=== PATIENT | female | born 1950 | race Caucasian/White ===

== ENCOUNTER 2024-01-29 08:47 | Outpatient (CLI) | payer MEDICARE, SELFPAY ==
--- NOTE | 2024-01-29 | ECHO_ITS ---
Patient Info Name: Lorna Echeverria Age: 73 years : 1950 Gender: Female Ht: 65 in Wt: 180 lbs BSA: 1.96 m2 HR: 69 bpm BP: 156 / 91 mmHg Technical Quality: Fair Exam Date: 01/29/2024 9:35 AM Exam Location: Echo Lab Patient Status: Outpatient Admit Date: 01/29/2024 Staff Ordering Physician: JustinKingsley MD Career Technology Teacher: Kannan Villarreal RDCS Attending Provider: LeeroyKingsley MD Exam Type: CA echo doppler color flow Study Info Indications R60.0 - Localized edema Complete two-dimensional, color flow and Doppler transthoracic echocardiogram is performed. Summary 1. Complete two-dimensional, color flow and Doppler transthoracic echocardiogram is performed. 2. Left ventricular chamber dimension is normal. 3. Left ventricular systolic function is normal, estimated at 60-65%. 4. The left ventricular diastolic function is grade I diastolic dysfunction. 5. E/e' 12 is mildly elevated. 6. There is trace aortic valve regurgitation. 7. No pulmonary hypertension, estimated pulmonary arterial systolic pressure is 11 mmHg. Left Ventricle E/e' 12 is mildly elevated. Left ventricular chamber dimension is normal. Left ventricular systolic function is normal, estimated at 60-65%. The left ventricular diastolic function is grade I diastolic dysfunction. Right Ventricle Right ventricular chamber dimension is normal. Right ventricular systolic function is normal. Left Atria Left atrial chamber dimension is normal. Right Atria Right atrial chamber dimension is normal. Aortic Valve The aortic valve is trileaflet. There is no aortic valve stenosis. There is trace aortic valve regurgitation. Pulmonic Valve There is no pulmonic regurgitation. Mitral Valve There is no mitral valve stenosis. There is no mitral valve regurgitation. Tricuspid Valve There is no tricuspid valve regurgitation. No pulmonary hypertension, estimated pulmonary arterial systolic pressure is 11 mmHg. Pericardium/Pleural There is no pericardial effusion. Inferior Vena Cava Normal inferior vena cava with >50% collapse upon inspiration consistent with normal right atrial pressure, 5 mmHg. Aorta The aortic root size at the sinus of Valsalva is normal. Left Ventricular Outflow Tract Name Value Normal LVOT 2D LVOT Diameter 2.0 cm LVOT Doppler LVOT Peak Gradient 6 mmHg LVOT Mean Gradient 3 mmHg LVOT VTI 28 cm LVOT VTI/AV VTI Ratio 1.0 LVOT Stroke Volume 88 ml LVOT CO 5.8 l/min LVOT CI 3.0 l/min/m2 Pulmonic Valve Name Value Normal PV Doppler PV Peak Gradient 6 mmHg Mitral Valve Name Value Normal
== END 2024-01-29 08:48 | disposition home or self-care (01) ==
LOC: ANHCARD 08:50
PROVIDERS: PCP Internal Medicine; Visit Provider Internal Medicine
DX: R60.0 Localized edema (principal); I51.89 Other ill-defined heart diseases
CPT/HCPCS: 93306

== ENCOUNTER 2024-10-28 07:54 | Outpatient (CLI) | payer MEDICARE, SELFPAY ==
--- NOTE | ~2024-10-28 | US_ITS ---
EXAMINATION: US renal BI DATE: 10/28/2024 08:42 INDICATION: Elevated serum creatinine TECHNIQUE: Multiple ultrasound grayscale images of the kidneys were obtained. COMPARISON: None. FINDINGS: The right kidney measures 10.9 x 4.7 x 4.5 cm. The left kidney measures 9.3 x 3.4 x 3.9 cm. The kidne ys demonstrate normal echogenicity. There are a couple 8-9 mm anechoic cysts at the left kidney. Ther e is no hydronephrosis in either kidney. No stones identified. The bladder is normal with bilateral ureteral jets visualized on color Doppler.. IMPRESSION: 1. A couple subcentimeter left renal cysts. Otherwise normal kidneys without hydronephrosis. Reviewed, dictated and finalized at location A. IMPRESSION: 1. A couple subcentimeter left renal cysts. Otherwise normal kidneys without h ydronephrosis.
--- OUTSIDE RECORDS SUMMARY | 2024-10-28 08:01 | XMS_ITS | Clinical Summary ---
Author Organization [facility] Address [address] [place] [address] Care Team Providers Care Dependency Program Director Name Role Phone Kingsley Anderson MD Primary Care Provider [phone] Allergies Active Allergy Reactions Criticality Noted Date Comments Ciprofloxacin Nausea and Vomiting 06/15/2019 Penicillins Other (See Comments) 06/15/2019 Decreased energy Medications lisinopril (PRINIVIL) 5 mg tablet Take 5 mg by mouth 2 times daily. Active nebivolol (BYSTOLIC) 5 mg Tablet Take 5 mg by mouth. Active rosuvastatin (CRESTOR) 5 mg tablet Take 5 mg by mouth daily at bedtime. Active albuterol HFA 90 mcg inhaler Take 2 Puffs by inhalation every 6 hours as needed for Wheezing or Shortness of Breath. 8.5 Gram 9 Active Social History Tobacco Use Types Packs/Day Years Used Date Smoking Tobacco: Never Smokeless Tobacco: Never Alcohol Use Standard Drinks/Week Comments Not Currently 0 (1 standard drink = 0.6 oz pur e alcohol) Comments No Sex and Gender Information Value Date Recorded Sex Assigned at Not on file Legal Sex Female 9:54 PM CDT Gender Identity Not on file Sexual Orientation Not on file Last Filed Vital Signs Vital Sign Reading Time Taken Comments Blood Pressure 139/86 06/15/2019 5:57 PM C[employer]OMER SERVICE REPRESENTATIVE TEACHER Pulse 77 06/15/2019 5:57 PM C[employer]OMER SERVICE REPRESENTATIVE TEACHER Temperature 36.7 C (98.1 F) 06/15/2019 5:57 PM C[employer]OMER SERVICE REPRESENTATIVE TEACHER Respiratory Rate 18 06/15/2019 5:57 PM C[employer]OMER SERVICE REPRESENTATIVE TEACHER Oxygen Saturation 94% 06/15/2019 5:57 PM C[employer]OMER SERVICE REPRESENTATIVE TEACHER Inhaled Oxygen Concentration - - Weight 85.3 kg (188 lb) 06/15/2019 5:57 PM C[employer]OMER SERVICE REPRESENTATIVE TEACHER Height 157.5 cm (5' 2 ) 06/15/2019 5:57 PM C[employer]OMER SERVICE REPRESENTATIVE TEACHER Body Mass Index 34.39 06/15/2019 5:57 PM C[employer]OMER SERVICE REPRESENTATIVE TEACHER Plan of Treatment Health Maintenance Due Date Last Done Comments DTAP/TDAP/TD VACCINES (1 - Tdap) 1968 BREAST CANCER SCREENING 1989 COLORECTAL SCREENING 1994 Colorectal Cancer Screening 1994 FIT-DNA Q 3 years 1994 FIT/FOBT Q 1 year 1994 Flex Sig/CT Colonography Q 5 years 1994 PNEUMOCOCCAL VACCINE 50+ YEA RS (1 of 1 - PCV) 1999 ZOSTER VACCINE (1 of 2) 1999 OSTEOPOROSIS SCREENING 2014 INFLUENZA VACCINE (#1) 2024 04/16/2019, 2017 RSV VACCINE (60+ or ) (1 - 1-dose 75+ series) 2024 Insurance MEDICARE PART A AND B [employer] SUPP Care Teams Dependency Program Director Relationship Specialty Start Date End Date Kingsley Anderson MD [address] [place] [phone] PCP - General Internal Medicine 06/15/19
--- OUTSIDE RECORDS SUMMARY | 2024-10-28 08:02 | XMS_ITS | Data Portability ---
[facility] Address [address] [place] [address] FRANKY Otero [address] Care Team Providers Care Field Sales Associate Name Role Phone SOPHIE ANDERSON Primary Care Provider Unavailabl e Assessment Encounter Date Assessment Date Assessment LastModified by Organization Details LastModified Time 12/31/2023 12/31/2023 hypertension controlled obesity healthy care instructions. Edema echo blood work including a BNP she will call us early next week with blood pressure readings today's blood pressure is good but she has had some hypertensive readings at home she says [email or web address] Not available 02/09/2024 22:14:29 03/11/2024 03/11/2024 Increase the Coreg to 12.5 b.i.d. dyslipidemia rosuvastatin GERD pantoprazole and conservative measures rhinitis loratadine we will also continue her lisinopril and her furosemide. Using her famotidine as well see me back in 3 months [email or web address] Not available 03/12/2024 13:12:51 06/08/2024 06/08/2024 Says that she is getting her mammograms at [facility]. Blood pressure is controlled CBC CMP lipid colonoscopy 2024 follow up 4 months [email or web address] Not available 06/11/2024 13:44:55 10/25/2024 10/25/2024 No orthostatic symptoms treat empirically with doxycycline for a week and she will call if not improved [email or web address] Not available 10/25/2024 21:59:33 Plan of Treatment Reminders Order Date Submit Date Provider Last Modified By Organization Details Last Modified Time Details Appointments ANY 15 2024 09:30A M Sophie Anderson MD Not available Not available Not available Lab lipid panel, serum 2023 024 ROBBIE [facility], [address], [place], [address], 06/09/2024 07:14:23 CMP, serum or plasma 2023 024 OSGOOD [facility], [address], [place], [address], 06/09/2024 07:14:24 CBC w/ auto diff 2023 024 OSGOOD [facility], [address], [place], [address], 06/09/2024 07:14:25 CBC w/ auto diff 2023 024 [facility], [address], [place], [address], 01/02/2024 07:15:29 CMP, serum or plasma 2023 024 [facility], [address], [place], [address], 01/02/2024 07:15:29 BNP (B-type natriuret ic peptide), serum or plasma [address], [address], [place], [address], 01/03/2024 11:24:36 Referral None recorded. Procedures None recorded. Surgeries None recorded. Imaging US, echocardi ogram 2023 024 [facility] [address], [place], [address], 01/29/2024 11:39:25 Medication Orders doxycycli ne hyclate 100 mg tablet 2024 025 [id number], [address], [place], [place], [id number], 10/25/2024 16:31:33 Coreg 12.5 mg tablet 2023 024 [email or web address] [id number], [address], [place], [place], [id number], 03/11/2024 12:25:22 Patient TargetsNo targets recorded. Patient Instructions Encounter Date Encounter Id Patient Instructions Last Modified By Organization Details Last Modified Time 11/10/2023 [id number] Medicare Well[employer] [facility] Preventive Checklist Not available 11/10/2023 22:29:30 eating healthy foods: care instructions [email or web address] Not available 11/10/2023 22:29:30 12/31/2023 [id number] A healthy lifestyle: care instructions [email or web address] Not available 12/31/2023 21:11:44 06/08/2024 [id number] A healthy lifestyle: care instructions Not available 06/08/2024 12:16:08 10/25/2024 [id number] A healthy lifestyle: care instructions Not available 10/25/2024 16:31:33 Reason for Referral None Reported. Results Created Date Observation Date Name Description Value Unit Range Abnormal Flag Note LastModifiedBy Organization Detail LastModifiedTime 01/01/2001/02/2024 COMP. METAB OLIC PANEL (14) glucose 121 mg/dL 70-99 above high normal Not Available [facility] ([facility]) [address] [place], [address], 01/02/2024 07:15:29 01/01/20 24 01/02/2024 COMP. METAB OLIC PANEL (14) BUN 9 mg/dL 8-27 Not Available [facility] ([facility]) [address] [place], [address], 01/02/2024 07:15:29 01/01/20 24 01/02/2024 COMP. METAB OLIC PANEL (14) creatinine 0.88 mg/dL 0.57-1 .00 Not Available [facility] ([facility]) [address] [place], [address], 01/02/2024 07:15:29 01/01/20 24 01/02/2024 COMP. METAB OLIC PANEL (14) eGFR 69 mL/mi n/1.7 3 >59 Not Available [facility] ([facility]) [address] [facility], [place], [address], 01/02/2024 07:15:29 01/01/20 24 01/02/2024 COMP. METAB OLIC PANEL (14) BUN/creatini ne ratio 10 12-28 below low normal Not Available [facility] ([facility]) [address] [facility], [place], [address], 01/02/2024 07:15:29 01/01/20 24 01/02/2024 COMP. METAB OLIC PANEL (14) sodium 141 mmol/ L 134-14 4 Not Available [facility] ([facility]) [address] [facility], [place], [address], 01/02/2024 07:15:29 01/01/20 24 01/02/2024 COMP. METAB OLIC PANEL (14) potassium 3.9 mmol/ L 3.5-5. 2 Not Available [facility] ([facility]) [address] [facility], [place], [address], 01/02/2024 07:15:29 01/01/20 24 01/02/2024 COMP. METAB OLIC PANEL (14) chloride 105 mmol/ L 96-106 Not Available [facility] ([facility]) [address] [facility], [place], [address], 01/02/2024 07:15:29 01/01/20 24 01/02/2024 COMP. METAB OLIC PANEL (14) carbon dioxide, total 23 mmol/ L 20-29 Not Available [facility] ([facility]) [address] [facility], [place], [address], 01/02/2024 07:15:29 01/01/20 24 01/02/2024 COMP. METAB OLIC PANEL (14) calcium 9.1 mg/dL 8.7-10 .3 Not Available [facility] ([facility]) [address] [place], [address], 01/02/2024 07:15:29 01/01/20 24 01/02/2024 COMP. METAB OLIC PANEL (14) protein, total 6.2 g/dL 6.0-8. 5 Not Available [facility] ([facility]) [address] [place], [address], 01/02/2024 07:15:29 01/01/20 24 01/02/2024 COMP. METAB OLIC PANEL (14) albumin 4.2 g/dL 3.8-4. 8 Not Available [facility] ([facility]) [address] [place], [address], 01/02/2024 07:15:29 01/01/20 24 01/02/2024 COMP. METAB OLIC PANEL (14) globulin, total 2.0 g/dL 1.5-4. 5 Not Available [facility] ([facility]) [address] [place], [address], 01/02/2024 07:15:29 01/01/20 24 01/02/2024 COMP. METAB OLIC PANEL (14) bilirubin, total 0.3 mg/dL 0.0-1. 2 Not Available [facility] ([facility]) [address] [place], [address], 01/02/2024 07:15:29 01/01/20 24 01/02/2024 COMP. METAB OLIC PANEL (14) alkaline phosphatase 68 IU/L 44-121 Not Available [facility] ([facility]) [address] [place], [address], 01/02/2024 07:15:29 01/01/20 24 01/02/2024 COMP. METAB OLIC PANEL (14) AST (SGOT) 24 IU/L 0-40 Not Available [facility] ([facility]) [address] [facility], [place], [address], 01/02/2024 07:15:29 01/01/20 24 01/02/2024 COMP. METAB OLIC PANEL (14) ALT (SGPT) 27 IU/L 0-32 Not Available [facility] ([facility]) [address] [facility], [place], [address], 01/02/2024 07:15:29 01/01/20 24 01/02/2024 CBC WITH DIFFE RENTI AL/PL ATELE T WBC 7.2 x10e3 /uL 3.4-10 .8 Not Available [facility] ([facility]) [address] [facility], [place], [address], 01/02/2024 07:15:29 01/01/20 24 01/02/2024 CBC WITH DIFFE RENTI AL/PL ATELE T RBC 4.30 x10e6 /uL 3.77-5 .28 Not Available [facility] ([facility]) [address] [facility], [place], [address], 01/02/2024 07:15:29 01/01/20 24 01/02/2024 CBC WITH DIFFE RENTI AL/PL ATELE T hemoglobin 13.0 g/dL 11.1-1 5.9 Not Available [facility] ([facility]) [address] [place], [address], 01/02/2024 07:15:29 01/01/20 24 01/02/2024 CBC WITH DIFFE RENTI AL/PL ATELE T hematocrit 39.1 % 34.0-4 6.6 Not Available [facility] ([facility]) [address] [place], [address], 01/02/2024 07:15:29 01/01/20 24 01/02/2024 CBC WITH DIFFE RENTI AL/PL ATELE T MCV 91 fL 79-97 Not Available [facility] ([facility]) [address] [facility], [place], [address], 01/02/2024 07:15:29 01/01/20 24 01/02/2024 CBC WITH DIFFE RENTI AL/PL ATELE T MCH 30.2 pg 26.6-3 3.0 Not Available [facility] ([facility]) [address] [facility], [place], [address], 01/02/2024 07:15:29 01/01/20 24 01/02/2024 CBC WITH DIFFE RENTI AL/PL ATELE T MCHC 33.2 g/dL 31.5-3 5.7 Not Available [facility] ([facility]) [address] [facility], [place], [address], 01/02/2024 07:15:29 01/01/20 24 01/02/2024 CBC WITH DIFFE RENTI AL/PL ATELE T RDW 12.8 % 11.7-1 5.4 Not Available [facility] ([facility]) [address] [facility], [place], [address], 01/02/2024 07:15:29 01/01/20 24 01/02/2024 CBC WITH DIFFE RENTI AL/PL ATELE T platelets 250 x10e3 /uL 150-45 0 Not Available [facility] ([facility]) [address] [facility], [place], [address], 01/02/2024 07:15:29 01/01/20 24 01/02/2024 CBC WITH DIFFE RENTI AL/PL ATELE T neutrophils 63 % notest ab. Not Available [facility] ([facility]) [address] [facility], [place], [address], 01/02/2024 07:15:29 01/01/20 24 01/02/2024 CBC WITH DIFFE RENTI AL/PL ATELE T lymphs 30 % notest ab. Not Available [facility] ([facility]) [address] [facility], [place], [address], 01/02/2024 07:15:29 01/01/20 24 01/02/2024 CBC WITH DIFFE RENTI AL/PL ATELE T monocytes 5 % notest ab. Not Available [facility] ([facility]) [address] [facility], [place], [address], 01/02/2024 07:15:29 01/01/20 24 01/02/2024 CBC WITH DIFFE RENTI AL/PL ATELE T eos 1 % notest ab. Not Available [facility] ([facility]) [address] [facility], [place], [address], 01/02/2024 07:15:29 01/01/20 24 01/02/2024 CBC WITH DIFFE RENTI AL/PL ATELE T basos 1 % notest ab. Not Available [facility] ([facility]) [address] [facility], [place], [address], 01/02/2024 07:15:29 01/01/20 24 01/02/2024 CBC WITH DIFFE RENTI AL/PL ATELE T neutrophils (absolute) 4.5 x10e3 /uL 1.4-7. 0 Not Available [facility] ([facility]) [address] [facility], [place], [address], 01/02/2024 07:15:29 01/01/20 24 01/02/2024 CBC WITH DIFFE RENTI AL/PL ATELE T lymphs (absolute) 2.1 x10e3 /uL 0.7-3. 1 Not Available [facility] ([facility]) [address] [place], [address], 01/02/2024 07:15:29 01/01/20 24 01/02/2024 CBC WITH DIFFE RENTI AL/PL ATELE T monocytes(ab solute) 0.4 x10e3 /uL 0.1-0. 9 Not Available [facility] ([facility]) [address] [facility], [place], [address], 01/02/2024 07:15:29 01/01/20 24 01/02/2024 CBC WITH DIFFE RENTI AL/PL ATELE T eos (absolute) 0.1 x10e3 /uL 0.0-0. 4 Not Available [facility] ([facility]) [address] [place], [address], 01/02/2024 07:15:29 01/01/20 24 01/02/2024 CBC WITH DIFFE RENTI AL/PL ATELE T baso (absolute) 0.1 x10e3 /uL 0.0-0. 2 Not Available [facility] ([facility]) [address] [facility], [place], [address], 01/02/2024 07:15:29 01/01/20 24 01/02/2024 CBC WITH DIFFE RENTI AL/PL ATELE T immature granulocytes 0 % notest ab. Not Available [facility] ([facility]) [address] [facility], [place], [address], 01/02/2024 07:15:29 01/01/20 24 01/02/2024 CBC WITH DIFFE RENTI AL/PL ATELE T immature grans (abs) 0.0 x10e3 /uL 0.0-0. 1 Not Available [facility] ([facility]) [address] [place], [address], 01/02/2024 07:15:29 01/01/20 24 01/02/2024 B-TYP E NATRI URETI C PEPTI DE B-type natriuretic peptide 15.0 pg/mL 0.0-10 0.0 Sieme ns AD[facility] XP metho dolog y Not Available [facility] ([facility]) [address] [place], [address], 01/02/2024 09:19:42 06/08/20 24 06/09/2024 LIPID PANEL cholesterol, total 152 mg/dL 100-19 9 Not Available [facility] ([facility]) [address] [place], [address], 06/09/2024 07:14:23 06/08/20 24 06/09/2024 LIPID PANEL triglyceride s 98 mg/dL 0-149 Not Available [facility] ([facility]) [address] [place], [address], 06/09/2024 07:14:23 06/08/20 24 06/09/2024 LIPID PANEL HDL cholesterol 61 mg/dL >39 Not Available [facility] ([facility]) [address] [place], [address], 06/09/2024 07:14:23 06/08/20 24 06/09/2024 LIPID PANEL VLDL cholesterol willy 18 mg/dL 5-40 Not Available [facility] ([facility]) [address] [place], [address], 06/09/2024 07:14:23 06/08/20 24 06/09/2024 LIPID PANEL LDL chol calc ([facility]) 73 mg/dL 0-99 Not Available [facility] ([facility]) [address] [place], [address], 06/09/2024 07:14:23 06/08/20 24 06/09/2024 COMP. METAB OLIC PANEL (14) glucose 132 mg/dL 70-99 above high normal Not Available [facility] ([facility]) [address] [place], [address], 06/09/2024 07:14:24 06/08/20 24 06/09/2024 COMP. METAB OLIC PANEL (14) BUN 8 mg/dL 8-27 Not Available [facility] ([facility]) [address] [place], [address], 06/09/2024 07:14:24 06/08/20 24 06/09/2024 COMP. METAB OLIC PANEL (14) creatinine 0.83 mg/dL 0.57-1 .00 Not Available [facility] ([facility]) [address] [place], [address], 06/09/2024 07:14:24 06/08/20 24 06/09/2024 COMP. METAB OLIC PANEL (14) eGFR 74 mL/mi n/1.7 3 >59 Not Available [facility] ([facility]) [address] [place], [address], 06/09/2024 07:14:24 06/08/20 24 06/09/2024 COMP. METAB OLIC PANEL (14) BUN/creatini ne ratio 10 -28 below low normal Not Available [facility] ([facility]) [address] [place], [address], 06/09/2024 07:14:24 06/08/20 24 06/09/2024 COMP. METAB OLIC PANEL (14) sodium 145 mmol/ L 134-14 4 above high normal Not Available [facility] ([facility]) [address] [place], [address], 06/09/2024 07:14:24 06/08/20 24 06/09/2024 COMP. METAB OLIC PANEL (14) potassium 3.3 mmol/ L 3.5-5. 2 below low normal Not Available [facility] ([facility]) [address] [place], [address], 06/09/2024 07:14:24 06/08/20 24 06/09/2024 COMP. METAB OLIC PANEL (14) chloride 101 mmol/ L 96-106 Not Available [facility] ([facility]) [address] [place], [address], 06/09/2024 07:14:24 06/08/20 24 06/09/2024 COMP. METAB OLIC PANEL (14) carbon dioxide, total 27 mmol/ L 20-29 Not Available [facility] ([facility]) [address] [facility], [place], [address], 06/09/2024 07:14:24 06/08/20 24 06/09/2024 COMP. METAB OLIC PANEL (14) calcium 9.3 mg/dL 8.7-10 .3 Not Available [facility] ([facility]) [address] [facility], [place], [address], 06/09/2024 07:14:24 06/08/20 24 06/09/2024 COMP. METAB OLIC PANEL (14) protein, total 6.6 g/dL 6.0-8. 5 Not Available [facility] ([facility]) [address] [facility], [place], [address], 06/09/2024 07:14:24 06/08/20 24 06/09/2024 COMP. METAB OLIC PANEL (14) albumin 4.4 g/dL 3.8-4. 8 Not Available [facility] ([facility]) [address] [facility], [place], [address], 06/09/2024 07:14:24 06/08/20 24 06/09/2024 COMP. METAB OLIC PANEL (14) globulin, total 2.2 g/dL 1.5-4. 5 Not Available [facility] ([facility]) [address] [facility], [place], [address], 06/09/2024 07:14:24 06/08/20 24 06/09/2024 COMP. METAB OLIC PANEL (14) bilirubin, total 0.5 mg/dL 0.0-1. 2 Not Available [facility] ([facility]) [address] [facility] [place] [place], [address], 06/09/2024 07:14:24 06/08/20 24 06/09/2024 COMP. METAB OLIC PANEL (14) alkaline phosphatase 80 IU/L 44-121 Not Available [facility]) [address] [facility], [place], [address], 06/09/2024 07:14:24 06/08/20 24 06/09/2024 COMP. METAB OLIC PANEL (14) AST (SGOT) 20 IU/L 0-40 Not Available [facility] ([facility]) [address] [facility], [place], [address], 06/09/2024 07:14:24 06/08/20 24 06/09/2024 COMP. METAB OLIC PANEL (14) ALT (SGPT) 22 IU/L 0-32 Not Available [facility] ([facility]) [address] [facility], [place], [address], 06/09/2024 07:14:24 06/08/20 24 06/09/2024 CBC WITH DIFFE RENTI AL/PL ATELE T WBC 8.3 x10e3 /uL 3.4-10 .8 Eff ectiv e Decem fantasma 2023 [place] [id number] 5 WBC will be made* * non-o rdera ble as a stand -branden e order code. Not Available [facility] ([facility]) [address] [facility], [place], [address], 06/09/2024 07:14:25 06/08/20 24 06/09/2024 CBC WITH DIFFE RENTI AL/PL ATELE T RBC 4.65 x10e6 /uL 3.77-5 .28 Not Available [facility] ([facility]) [address] [facility], [place], [address], 06/09/2024 07:14:25 06/08/20 24 06/09/2024 CBC WITH DIFFE RENTI AL/PL ATELE T hemoglobin 13.7 g/dL 11.1-1 5.9 Not Available [facility] ([facility]) [address] [facility] [place] [place], [address], 06/09/2024 07:14:25 06/08/20 24 06/09/2024 CBC WITH DIFFE RENTI AL/PL ATELE T hematocrit 42.0 % 34.0-4 6.6 Not Available [facility] ([facility]) [address] [facility], [place], [address], 06/09/2024 07:14:25 06/08/20 24 06/09/2024 CBC WITH DIFFE RENTI AL/PL ATELE T MCV 90 fL 79-97 Not Available [facility] ([facility]) [address] [facility], [place], [address], 06/09/2024 07:14:25 06/08/2006/09/2024 CBC WITH DIFFE RENTI AL/PL ATELE T MCH 29.5 pg 26.6-3 3.0 Not Available [facility] ([facility]) [address] [facility], [place], [address], 06/09/2024 07:14:25 06/08/20 24 06/09/2024 CBC WITH DIFFE RENTI AL/PL ATELE T MCHC 32.6 g/dL 31.5-3 5.7 Not Available [facility] ([facility]) [address] [facility], [place], [address], 06/09/2024 07:14:25 06/08/20 24 06/09/2024 CBC WITH DIFFE RENTI AL/PL ATELE T RDW 12.5 % 11.7-1 5.4 Not Available [facility] ([facility]) [address] [facility], [place], [address], 06/09/2024 07:14:25 06/08/2006/09/2024 CBC WITH DIFFE RENTI AL/PL ATELE T platelets 312 x10e3 /uL 150-45 0 Not Available [facility] ([facility]) [address] [facility], [place], [address], 06/09/2024 07:14:25 06/08/2006/09/2024 CBC WITH DIFFE RENTI AL/PL ATELE T neutrophils 65 % notest ab. Not Available [facility] ([facility]) [address] [facility], [place], [address], 06/09/2024 07:14:25 06/08/20 24 06/09/2024 CBC WITH DIFFE RENTI AL/PL ATELE T lymphs 28 % notest ab. Not Available [facility] ([facility]) [address] [facility], [place], [address], 06/09/2024 07:14:25 06/08/20 24 06/09/2024 CBC WITH DIFFE RENTI AL/PL ATELE T monocytes 5 % notest ab. Not Available [facility] ([facility]) [address] [facility], [place], [address], 06/09/2024 07:14:25 06/08/20 24 06/09/2024 CBC WITH DIFFE RENTI AL/PL ATELE T eos 1 % notest ab. Not Available [facility] ([facility]) [address] [facility], [place], [address], 06/09/2024 07:14:25 06/08/20 24 06/09/2024 CBC WITH DIFFE RENTI AL/PL ATELE T basos 1 % notest ab. Not Available [facility] ([facility]) [address] [facility], [place], [address], 06/09/2024 07:14:25 06/08/20 24 06/09/2024 CBC WITH DIFFE RENTI AL/PL ATELE T neutrophils (absolute) 5.4 x10e3 /uL 1.4-7. 0 Not Available [facility] ([facility]) [address] [facility], [place], [address], 06/09/2024 07:14:25 06/08/20 24 06/09/2024 CBC WITH DIFFE RENTI AL/PL ATELE T lymphs (absolute) 2.3 x10e3 /uL 0.7-3. 1 Not Available [facility] ([facility]) [address] [facility], [place], [address], 06/09/2024 07:14:25 06/08/20 24 06/09/2024 CBC WITH DIFFE RENTI AL/PL ATELE T monocytes(ab solute) 0.4 x10e3 /uL 0.1-0. 9 Not Available [facility] ([facility]) [address] [facility], [place], [address], 06/09/2024 07:14:25 06/08/2006/09/2024 CBC WITH DIFFE RENTI AL/PL ATELE T eos (absolute) 0.1 x10e3 /uL 0.0-0. 4 Not Available [facility] ([facility]) [address] [facility], [place], [address], 06/09/2024 07:14:25 06/08/20 24 06/09/2024 CBC WITH DIFFE RENTI AL/PL ATELE T baso (absolute) 0.1 x10e3 /uL 0.0-0. 2 Not Available [facility] ([facility]) [address] [facility], [place], [address], 06/09/2024 07:14:25 06/08/20 24 06/09/2024 CBC WITH DIFFE RENTI AL/PL ATELE T immature granulocytes 0 % notest ab. Not Available [facility] ([facility]) [address] [facility], [place], [address], 06/09/2024 07:14:25 06/08/20 24 06/09/2024 CBC WITH DIFFE RENTI AL/PL ATELE T immature grans (abs) 0.0 x10e3 /uL 0.0-0. 1 Not Available [facility] ([facility]) [address] [facility], [place], [address], 06/09/2024 07:14:25 07/11/20 24 07/12/2024 BASIC METAB OLIC PANEL (8) glucose 136 mg/dL 70-99 above high normal Not Available [facility] ([facility]) [address] [facility] [place] [place], [address], 07/12/2024 08:20:41 07/11/20 24 07/12/2024 BASIC METAB OLIC PANEL (8) BUN 11 mg/dL 8-27 Not Available [facility] ([facility]) [address] [facility] [place] [place], [address], 07/12/2024 08:20:41 07/11/20 24 07/12/2024 BASIC METAB OLIC PANEL (8) creatinine 0.94 mg/dL 0.57-1 .00 Not Available [facility] ([facility]) [address] [facility] [place] [place], [address], 07/12/2024 08:20:41 07/11/20 24 07/12/2024 BASIC METAB OLIC PANEL (8) eGFR 64 mL/mi n/1.7 3 >59 Not Available [facility] ([facility]) [address] [facility] [place] [place], [address], 07/12/2024 08:20:41 07/11/20 24 07/12/2024 BASIC METAB OLIC PANEL (8) BUN/creatini ne ratio 12 12-28 Not Available [facility] ([facility]) [address] [place], [address], 07/12/2024 08:20:41 07/11/20 24 07/12/2024 BASIC METAB OLIC PANEL (8) sodium 143 mmol/ L 134-14 4 Not Available [facility] ([facility]) [address] [place], [address], 07/12/2024 08:20:41 07/11/20 24 07/12/2024 BASIC METAB OLIC PANEL (8) potassium 3.4 mmol/ L 3.5-5. 2 below low normal Not Available [facility] ([facility]) [address] [facility] [place], [address], 07/12/2024 08:20:41 07/11/20 24 07/12/2024 BASIC METAB OLIC PANEL (8) chloride 104 mmol/ L 96-106 Not Available [facility] ([facility]) [address] [facility] [place] [place], [address], 07/12/2024 08:20:41 07/11/20 24 07/12/2024 BASIC METAB OLIC PANEL (8) carbon dioxide, total 25 mmol/ L 20-29 Not Available [facility] ([facility]) [address] [facility] [place] [place], [address], 07/12/2024 08:20:41 07/11/20 24 07/12/2024 BASIC METAB OLIC PANEL (8) calcium 9.3 mg/dL 8.7-10 .3 Not Available [facility] ([facility]) [address] [place], [address], 07/12/2024 08:20:41 07/11/20 24 07/12/2024 HEMOG LOBIN A1C hemoglobin A1C 6.8 % 4.8-5. 6 above high normal Predi abete s: 5.7 - 6.4 Diabe lewis: >6.4 Glyce gabino contr ol for adult s with diabe lewis: <7.0 Not Available [facility] ([facility]) [address] [place], [address], 07/12/2024 08:20:42 07/11/20 24 07/12/2024 MAGNE SIUM magnesium 2.0 mg/dL 1.6-2. 3 Not Available [facility] ([facility]) [address] [place], [address], 07/12/2024 08:20:43 07/28/19 25 07/29/2024 BASIC METAB OLIC PANEL (8) glucose 123 mg/dL 70-99 above high normal Not Available [facility] ([facility]) [address] [place], [address], 07/29/2024 09:13:31 07/28/19 25 07/29/2024 BASIC METAB OLIC PANEL (8) BUN 14 mg/dL 8-27 Not Available [facility] ([facility]) [address] [place], [address], 07/29/2024 09:13:31 07/28/19 25 07/29/2024 BASIC METAB OLIC PANEL (8) creatinine 1.22 mg/dL 0.57-1 .00 above high normal Not Available [facility] ([facility]) [address] [facility] [place], [address], 07/29/2024 09:13:31 07/28/19 25 07/29/2024 BASIC METAB OLIC PANEL (8) eGFR 47 mL/mi n/1.7 3 >59 below low normal Not Available [facility] ([facility]) [address] [facility] [place], [address], 07/29/2024 09:13:31 07/28/1907/29/2024 BASIC METAB OLIC PANEL (8) BUN/creatini ne ratio 11 12-28 below low normal Not Available [facility] ([facility]) [address] [facility] [place], [address], 07/29/2024 09:13:31 07/28/19 25 07/29/2024 BASIC METAB OLIC PANEL (8) sodium 138 mmol/ L 134-14 4 Not Available [facility] ([facility]) [address] [facility] [place], [address], 07/29/2024 09:13:31 07/28/19 25 07/29/2024 BASIC METAB OLIC PANEL (8) potassium 4.9 mmol/ L 3.5-5. 2 Not Available [facility] ([facility]) [address] [facility] [place], [address], 07/29/2024 09:13:31 07/28/19 25 07/29/2024 BASIC METAB OLIC PANEL (8) chloride 101 mmol/ L 96-106 Not Available [facility] ([facility]) [address] [facility] [place], [address], 07/29/2024 09:13:31 07/28/19 25 07/29/2024 BASIC METAB OLIC PANEL (8) carbon dioxide, total 23 mmol/ L 20-29 Not Available [facility] ([facility]) [address] [facility] [place], [address], 07/29/2024 09:13:31 07/28/19 25 07/29/2024 BASIC METAB OLIC PANEL (8) calcium 10.1 mg/dL 8.7-10 .3 Not Available [facility] ([facility]) [address] [facility] [place], [address], 07/29/2024 09:13:31 08/08/19 25 08/09/2024 COMP. METAB OLIC PANEL (14) glucose 124 mg/dL 70-99 above high normal Not Available [facility] ([facility]) [address] [place], [address], 08/09/2024 07:07:57 08/08/19 25 08/09/2024 COMP. METAB OLIC PANEL (14) BUN 29 mg/dL 8-27 above high normal Not Available [facility] ([facility]) [address] [place], [address], 08/09/2024 07:07:57 08/08/19 25 08/09/2024 COMP. METAB OLIC PANEL (14) creatinine 1.80 mg/dL 0.57-1 .00 above high normal Not Available [facility] ([facility]) [address] [place], [address], 08/09/2024 07:07:57 08/08/19 25 08/09/2024 COMP. METAB OLIC PANEL (14) eGFR 29 mL/mi n/1.7 3 >59 below low normal Not Available [facility] ([facility]) [address] [facility] [place], [address], 08/09/2024 07:07:57 08/08/19 25 08/09/2024 COMP. METAB OLIC PANEL (14) BUN/creatini ne ratio 16 12-28 Not Available [facility] ([facility]) [address] [facility] [place], [address], 08/09/2024 07:07:57 08/08/19 25 08/09/2024 COMP. METAB OLIC PANEL (14) sodium 137 mmol/ L 134-14 4 Not Available [facility] ([facility]) [address] [facility], [place], [address], 08/09/2024 07:07:57 08/08/19 25 08/09/2024 COMP. METAB OLIC PANEL (14) potassium 5.2 mmol/ L 3.5-5. 2 Not Available [facility] ([facility]) [address] [facility] [place], [address], 08/09/2024 07:07:57 08/08/19 25 08/09/2024 COMP. METAB OLIC PANEL (14) chloride 103 mmol/ L 96-106 Not Available [facility] ([facility]) [address] [facility] [place], [address], 08/09/2024 07:07:57 08/08/19 25 08/09/2024 COMP. METAB OLIC PANEL (14) carbon dioxide, total 23 mmol/ L 20-29 Not Available [facility] ([facility]) [address] [facility] [place], [address], 08/09/2024 07:07:57 08/08/19 25 08/09/2024 COMP. METAB OLIC PANEL (14) calcium 10.6 mg/dL 8.7-10 .3 above high normal Not Available [facility] ([facility]) [address] [place], [address], 08/09/2024 07:07:57 08/08/19 25 08/09/2024 COMP. METAB OLIC PANEL (14) protein, total 6.5 g/dL 6.0-8. 5 Not Available [facility] ([facility]) [address] [place], [address], 08/09/2024 07:07:57 08/08/19 25 08/09/2024 COMP. METAB OLIC PANEL (14) albumin 4.4 g/dL 3.8-4. 8 Not Available [facility] ([facility]) [address] [place], [address], 08/09/2024 07:07:57 08/08/19 25 08/09/2024 COMP. METAB OLIC PANEL (14) globulin, total 2.1 g/dL 1.5-4. 5 Not Available [facility] ([facility]) [address] [place], [address], 08/09/2024 07:07:57 08/08/19 25 08/09/2024 COMP. METAB OLIC PANEL (14) bilirubin, total 0.4 mg/dL 0.0-1. 2 Not Available [facility] ([facility]) [address] [place], [address], 08/09/2024 07:07:57 08/08/1908/09/2024 COMP. METAB OLIC PANEL (14) alkaline phosphatase 71 IU/L 44-121 Not Available [facility] ([facility]) [address] [place], [address], 08/09/2024 07:07:57 08/08/19 25 08/09/2024 COMP. METAB OLIC PANEL (14) AST (SGOT) 17 IU/L 0-40 Not Available [facility] ([facility]) [address] [place], [address], 08/09/2024 07:07:57 08/08/19 25 08/09/2024 COMP. METAB OLIC PANEL (14) ALT (SGPT) 22 IU/L 0-32 Not Available [facility] ([facility]) [address] [facility], [place], [address], 08/09/2024 07:07:57 08/08/19 25 08/09/2024 MAGNE SIUM magnesium 2.2 mg/dL 1.6-2. 3 Not Available [facility] ([facility]) [address] [facility] [place], [address], 08/09/2024 07:07:58 08/08/19 25 08/08/2024 CBC WITH DIFFE RENTI AL/PL ATELE T WBC 8.4 x10e3 /uL 3.4-10 .8 Not Available [facility] ([facility]) [address] [facility], [place], [address], 08/09/2024 07:07:59 08/08/19 25 08/08/2024 CBC WITH DIFFE RENTI AL/PL ATELE T RBC 4.61 x10e6 /uL 3.77-5 .28 Not Available [facility] ([facility]) [address] [place], [address], 08/09/2024 07:07:59 08/08/1908/08/2024 CBC WITH DIFFE RENTI AL/PL ATELE T hemoglobin 13.7 g/dL 11.1-1 5.9 Not Available [facility] ([facility]) [address] [place], [address], 08/09/2024 07:07:59 08/08/1908/08/2024 CBC WITH DIFFE RENTI AL/PL ATELE T hematocrit 42.5 % 34.0-4 6.6 Not Available [facility] ([facility]) [address] [place], [address], 08/09/2024 07:07:59 08/08/19 25 08/08/2024 CBC WITH DIFFE RENTI AL/PL ATELE T MCV 92 fL 79-97 Not Available [facility] ([facility]) [address] [facility], [place], [address], 08/09/2024 07:07:59 08/08/19 25 08/08/2024 CBC WITH DIFFE RENTI AL/PL ATELE T MCH 29.7 pg 26.6-3 3.0 Not Available [facility] ([facility]) [address] [facility], [place], [address], 08/09/2024 07:07:59 08/08/19 25 08/08/2024 CBC WITH DIFFE RENTI AL/PL ATELE T MCHC 32.2 g/dL 31.5-3 5.7 Not Available [facility] ([facility]) [address] [facility], [place], [address], 08/09/2024 07:07:59 08/08/19 25 08/08/2024 CBC WITH DIFFE RENTI AL/PL ATELE T RDW 12.7 % 11.7-1 5.4 Not Available [facility] ([facility]) [address] [facility], [place], [address], 08/09/2024 07:07:59 08/08/19 25 08/08/2024 CBC WITH DIFFE RENTI AL/PL ATELE T platelets 324 x10e3 /uL 150-45 0 Not Available [facility] ([facility]) [address] [facility], [place], [address], 08/09/2024 07:07:59 08/08/19 25 08/08/2024 CBC WITH DIFFE RENTI AL/PL ATELE T neutrophils 57 % notest ab. Not Available [facility] ([facility]) [address] [facility], [place], [address], 08/09/2024 07:07:59 08/08/19 25 08/08/2024 CBC WITH DIFFE RENTI AL/PL ATELE T lymphs 33 % notest ab. Not Available [facility] ([facility]) [address] [facility], [place], [address], 08/09/2024 07:07:59 08/08/19 25 08/08/2024 CBC WITH DIFFE RENTI AL/PL ATELE T monocytes 7 % notest ab. Not Available [facility] ([facility]) [address] [facility], [place], [address], 08/09/2024 07:07:59 08/08/1908/08/2024 CBC WITH DIFFE RENTI AL/PL ATELE T eos 2 % notest ab. Not Available [facility] ([facility]) [address] [facility], [place], [address], 08/09/2024 07:07:59 08/08/1908/08/2024 CBC WITH DIFFE RENTI AL/PL ATELE T basos 1 % notest ab. Not Available [facility] ([facility]) [address] [facility], [place], [address], 08/09/2024 07:07:59 08/08/19 25 08/08/2024 CBC WITH DIFFE RENTI AL/PL ATELE T neutrophils (absolute) 4.8 x10e3 /uL 1.4-7. 0 Not Available [facility] ([facility]) [address] [facility], [place], [address], 08/09/2024 07:07:59 08/08/19 25 08/08/2024 CBC WITH DIFFE RENTI AL/PL ATELE T lymphs (absolute) 2.8 x10e3 /uL 0.7-3. 1 Not Available [facility] ([facility]) [address] [facility], [place], [address], 08/09/2024 07:07:59 08/08/19 08/08/2024 CBC WITH DIFFE RENTI AL/PL ATELE T monocytes(ab solute) 0.5 x10e3 /uL 0.1-0. 9 Not Available [facility] ([facility]) [address] [place], [address], 08/09/2024 07:07:59 08/08/19 25 08/08/2024 CBC WITH DIFFE RENTI AL/PL ATELE T eos (absolute) 0.2 x10e3 /uL 0.0-0. 4 Not Available [facility] ([facility]) [address] [place], [address], 08/09/2024 07:07:59 08/08/19 25 08/08/2024 CBC WITH DIFFE RENTI AL/PL ATELE T baso (absolute) 0.1 x10e3 /uL 0.0-0. 2 Not Available [facility] ([facility]) [address] [facility], [place], [address], 08/09/2024 07:07:59 08/08/19 25 08/08/2024 CBC WITH DIFFE RENTI AL/PL ATELE T immature granulocytes 0 % notest ab. Not Available [facility] ([facility]) [address] [place], [address], 08/09/2024 07:07:59 08/08/19 25 08/08/2024 CBC WITH DIFFE RENTI AL/PL ATELE T immature grans (abs) 0.0 x10e3 /uL 0.0-0. 1 Not Available [facility] ([facility]) [address] [place], [address], 08/09/2024 07:07:59 08/26/19 25 08/27/2024 COMP. METAB OLIC PANEL (14) glucose 103 mg/dL 70-99 above high normal Not Available [facility] ([facility]) [address] [place], [address], 08/27/2024 07:07:28 08/26/19 25 08/27/2024 COMP. METAB OLIC PANEL (14) BUN 24 mg/dL 8-27 Not Available [facility] ([facility]) [address] [facility] [place], [address], 08/27/2024 07:07:28 08/26/19 25 08/27/2024 COMP. METAB OLIC PANEL (14) creatinine 1.45 mg/dL 0.57-1 .00 above high normal Not Available [facility] ([facility]) [address] [facility] [place], [address], 08/27/2024 07:07:28 08/26/19 25 08/27/2024 COMP. METAB OLIC PANEL (14) eGFR 38 mL/mi n/1.7 3 >59 below low normal Not Available [facility] ([facility]) [address] [facility], [place], [address], 08/27/2024 07:07:28 08/26/19 25 08/27/2024 COMP. METAB OLIC PANEL (14) BUN/creatini ne ratio 17 12-28 Not Available [facility] ([facility]) [address] [place], [address], 08/27/2024 07:07:28 08/26/19 25 08/27/2024 COMP. METAB OLIC PANEL (14) sodium 139 mmol/ L 134-14 4 Not Available [facility] ([facility]) [address] [place], [address], 08/27/2024 07:07:28 08/26/19 25 08/27/2024 COMP. METAB OLIC PANEL (14) potassium 4.6 mmol/ L 3.5-5. 2 Not Available [facility] ([facility]) [address] [place], [address], 08/27/2024 07:07:28 08/26/19 25 08/27/2024 COMP. METAB OLIC PANEL (14) chloride 102 mmol/ L 96-106 Not Available [facility] ([facility]) [address] [facility] [place], [address], 08/27/2024 07:07:28 08/26/19 25 08/27/2024 COMP. METAB OLIC PANEL (14) carbon dioxide, total 25 mmol/ L 20-29 Not Available [facility] ([facility]) [address] [facility] [place], [address], 08/27/2024 07:07:28 08/26/19 25 08/27/2024 COMP. METAB OLIC PANEL (14) calcium 10.1 mg/dL 8.7-10 .3 Not Available [facility] ([facility] [address] [facility] [place], [address], 08/27/2024 07:07:28 08/26/19 25 08/27/2024 COMP. METAB OLIC PANEL (14) protein, total 6.2 g/dL 6.0-8. 5 Not Available [facility] ([facility]) [address] [facility] [place], [address], 08/27/2024 07:07:28 08/26/19 25 08/27/2024 COMP. METAB OLIC PANEL (14) albumin 4.3 g/dL 3.8-4. 8 Not Available [facility] ([facility]) [address] [facility] [place], [address], 08/27/2024 07:07:28 08/26/19 25 08/27/2024 COMP. METAB OLIC PANEL (14) globulin, total 1.9 g/dL 1.5-4. 5 Not Available [facility] ([facility]) [address] [facility] [place] [place], [address], 08/27/2024 07:07:28 08/26/19 25 08/27/2024 COMP. METAB OLIC PANEL (14) bilirubin, total 0.4 mg/dL 0.0-1. 2 Not Available [facility] ([facility]) [address] [facility], [place], [address], 08/27/2024 07:07:28 08/26/19 25 08/27/2024 COMP. METAB OLIC PANEL (14) alkaline phosphatase 69 IU/L 44-121 Not Available [facility] ([facility]) [address] [facility], [place], [address], 08/27/2024 07:07:28 08/26/19 25 08/27/2024 COMP. METAB OLIC PANEL (14) AST (SGOT) 16 IU/L 0-40 Not Available [facility] ([facility]) [address] [facility], [place], [address], 08/27/2024 07:07:28 08/26/19 25 08/27/2024 COMP. METAB OLIC PANEL (14) ALT (SGPT) 20 IU/L 0-32 Not Available [facility] ([facility]) [address] [facility], [place], [address], 08/27/2024 07:07:28 11/09/19 24 01/27/2020 colon oscop y proce dure (PROC ) No observ ation record ed. BARCODE Not Available 2023 10:33:45 11/10/19 24 06/06/2020 MAMMO , scree airam, bilat eral No observ ation record ed. [email or web address] [facility] [address] [place], [address], 11/15/2023 22:12:31 01/29/20 24 01/29/2024 , [facility] brett gram No observ ation record ed. [facility] [address] [facility] [address], [place], [address], 02/26/2024 12:12:26 Result Notes None recorded. Problems Name Problem SNOMED Code Status Onset Date Resolution Date Notes Provider Name and Address Organization Details Recorded Time Hyperlipidemia 71430831 Active 2023 Sophie Anderson MD Attn: Ernesto jacobson,[address] [facility], [place], [address], [place] - [facility] 4 22:23:09 Essential hypertension 90565925 Active 2023 Sophie Anderson MD Attn: Ernesto g,[address] [facility], [place], [address], [place] [facility] 4 22:23:24 Vitamin D below reference range 602868897 Active 2023 Sophie Anderson MD Attn: Accountflorentino g,[address] [facility], [place], [address], [place] - [facility] 4 22:24:12 Gastro-esophag eal reflux disease with esophagitis 374122919 Active 2023 Sophie Anderson MD Attn: Ernesto g,[address] [facility], [place], [address], [place] - [facility] 4 22:24:49 Edema of lower extremity 046606224 Active 2023 Katelin Delgado MA null, [place] - [facility] 4 17:30:46 Obesity 274835304 Active 2023 Katelin Delgado MA null, [place] [facility] 4 17:30:49 Serum creatinine above reference range 424930280 Active 2024 Katelin Delgado MA null, [place] - [facility] 5 17:14:38 Problem Notes None recorded. Procedures Surgical History Date Name Laterality Status Provider Name and Address Organization Details Recorded Time renal lithotripsy completed Lila Harrington [place] - [facility] 11/10/2023 09:53:34 Imaging Results Imaging Date Name Status LastModified by Organization Details LastModified Time 01/27/2020 colonoscopy procedure (PROC) completed BARCODE Information not available 11/09/2023 10:33:45 06/06/2020 MAMMO, screening, bilateral completed [email or web address] [facility] [place], [address], 11/15/2023 22:12:31 01/29/2024 US, echocardiogram completed ROBBIE [facility] [address] [facility] [address] [facility] [address], [place], [address], 02/26/2024 12:12:26 Procedure Notes None recorded. Medical Equipment None Reported. Allergies Allergen ID Allergen Name Allergen Category Reaction Reaction Severity Criticality Documentation Date Start Date Code Code System Note Provider Name and Address Organization Details Recorded Time 16680816 Product containin g penicilli n (product) medicatio n Not available Not available Not available 09/11/2023 92704 8001 SNOMED doesn 't remem fantasma react ion Not Available Not Available Not Available 16680817 Cipro medicatio n vomiting Not available Not available 09/11/202341627 3 RxNorm Not Available Not Available Not Available Medications Name Sig Start Date Stop Date Status Note LastModified by Organization Details LastModified Time cyclobenz aprine 10 mg tablet TAKE 1 TABLET BY MOUTH EVERY 8 HOURS NEEDED. MAY CUT IN HALF IF TOO SEDATING 09/10 completed Not Available Not Available Not Available carvedilo l 6.25 mg tablet TAKE 1 TABLET BY MOUTH TWICE DAILY 04/01 completed changed to 12.5mg BID at visit 03/11/[address] anderson Not Available Not Available Not Available doxycycli ne hyclate 100 mg capsule TAKE 1 CAPSULE BY MOUTH TWICE DAILY FOR 10 DAYS 11/05 completed Not Available Not Available Not Available carvedilo l 12.5 mg tablet TAKE 1 TABLET BY MOUTH TWICE DAILY active Not Available Not Available No t Available azithromy ana 250 mg tablet TAKE 2 TABLETS BY MOUTH FOR 1 DAY THEN TAKE 1 TABLET BY MOUTH DAILY FOR 4 DAYS 11/05 completed Not Available Not Available Not Available hydrocodo ne 5 mg-acetam inophen 325 mg tablet TAKE 1 TO 2 TABLETS BY MOUTH EVERY 4 TO 6 HOURS NEEDED FOR PAIN. MAXIMUM OF 8 TABLETS PER DAY. 09/10 completed Not Available Not Available Not Available lisinopri l 20 mg tablet TAKE 1 TABLET BY MOUTH DAILY 11/05 completed Not Available Not Available Not Available famotidin e 40 mg tablet Take 1 tablet twice a day by oral route for 90 days. active Not Available Not Available No t Available clindamyc in HCl 150 mg capsule TAKE 1 CAPSULE BY MOUTH FOUR TIMES DAILY 03/11 completed Not Available Not Available Not Available nifedipin e ER 30 mg tablet,ex tended release Take by oral route for 30 days. 09/13 completed Not Available Not Available Not Available amlodipin e 5 mg tablet TAKE 1 TABLET BY MOUTH EVERY DAY active Not Available Not Available No t Available peg-elect rolyte solution 420 gram oral solution USE DIRECTED BY DOCTORS OFFICE 09/10 completed Not Available Not Available Not Available pantopraz ole 40 mg tablet,de layed release TAKE 1 TABLET BY MOUTH DAILY active Not Available Not Available No t Available lisinopri l 10 mg tablet TAKE 1 TABLET BY MOUTH TWICE DAILY active Not Available Not Available No t Available promethaz ine 25 mg tablet TAKE 1/2 TABLET BY MOUTH EVERY 6 HOURS NEEDED FOR NAUSEA 09/10 completed Not Available Not Available Not Available docusate sodium 100 mg capsule Take twice a day by oral route for 30 days. 03/11 completed Not Available Not Available Not Available furosemid e 20 mg tablet TAKE 1 TABLET BY MOUTH EVERY DAY NEEDED active Not Available Not Available No t Available fluticaso ne propionat e 50 mcg/actua tion nasal spray,[employer] SHAKE LIQUID AND USE 1 SPRAY IN EACH NOSTRIL EVERY DAY 2023 active Not Available Not Available Not Avai lable doxycycli ne hyclate 100 mg tablet Take 1 tablet twice a day by oral route for 10 days. 2024 active Not Available Not Available Not Avai lable loratadin e 10 mg tablet TAKE 1 TABLET BY MOUTH DAILY active Not Available Not Available No t Available naproxen 500 mg tablet TAKE 1 TABLET BY MOUTH EVERY 12 HOURS NEEDED 09/10 completed Not Available Not Available Not Available rosuvasta tin 10 mg tablet TAKE 1 TABLET BY MOUTH DAILY active Not Available Not Available No t Available potassium chloride ER 20 mEq tablet,ex tended release TAKE 1 TABLET BY MOUTH EVERY DAY active Not Available Not Available No t Available Vitals Date Recorded Body height Body mass index (BMI) Body weight Heart rate Oxygen saturation Oxygen saturation in Arterial blood by Pulse oximetry Systolic blood pressure Diastolic blood pressure Provider Name and Address Organization Details Last Updated DateTime 4 165.1 cm 31.4 kg/m2 89926.2 4 g 77 /min 99 % 99 % 138 mm[Hg] 76 mm[Hg] Agustina Parrish MA [facility] 4 09:43:59 Date Recorded Pain severity - 0-10 verbal numeric rating [Score] - Reported Provider Name and Address Organization Details Last Updated DateTime 11/10/2023 Angelina Harrington [facility] 11/10/2023 09:48:45 Date Recorded Body height Body mass index (BMI) Body weight Heart rate Oxygen saturation Oxygen saturation in Arterial blood by Pulse oximetry Systolic blood pressure Diastolic blood pressure Provider Name and Address Organization Details Last Updated DateTime 4 165.1 cm 31.9 kg/m2 28608.6 6 g 71 /min 97 % 97 % 132 mm[Hg] 70 mm[Hg] Agustina Parrish MA [facility] 4 16:42:51 Date Recorded Body height Body mass index (BMI) Body weight Heart rate Oxygen saturation Oxygen saturation in Arterial blood by Pulse oximetry Systolic blood pressure Diastolic blood pressure Provider Name and Address Organization Details Last Updated DateTime 4 165.1 cm 31.6 kg/m2 10028.8 3 g 68 /min 95 % 95 % 160 mm[Hg] 78 mm[Hg] Trinidad Sandoval MA [facility] 4 09:59:59 Date Recorded Body height Body mass index (BMI) Body weight Heart rate Oxygen saturation Oxygen saturation in Arterial blood by Pulse oximetry Systolic blood pressure Diastolic blood pressure Provider Name and Address Organization Details Last Updated DateTime 4 165.1 cm 31.2 kg/m2 66880.2 9 g 72 /min 96 % 96 % 138 mm[Hg] 70 mm[Hg] Agustina Parrish MA [facility] 4 09:43:33 Date Recorded Body height Body mass index (BMI) Body weight Heart rate Oxygen saturation Oxygen saturation in Arterial blood by Pulse oximetry Systolic blood pressure Diastolic blood pressure Provider Name and Address Organization Details Last Updated DateTime 5 165.1 cm 29.4 kg/m2 89297.6 9 g 73 /min 96 % 96 % 122 mm[Hg] 68 mm[Hg] Agustina Parrish MA [facility] 5 14:07:19 Social History Question Answer Notes LastModified by Organizat ion Details LastModified Time Tobacco Smoking Status Never Smoker Darius Arteaga MA [facility], [place] - [facility] 09/11/2023 10:30:50 Do You Have An Advance Directive? Yes Information not available 11/10/2023 What Is Your Level Of Alcohol Consumption? None Information not available 09/11/2023 Are You Blind Or Do You Have Difficulty Seeing? No Information not available 09/11/2023 What Is Your Level Of Caffeine Consumption? Heavy Information not available 09/11/2023 In The 14 Days Before Symptom Onset, Have You Had Close Contact With A Laboratory-confir med COVID-19 While That Case Was Ill? No Information not available 12/31/2023 In The 14 Days Before Symptom Onset, Have You Had Close Contact With A Person Who Is Under Investigation For COVID-19 While That Person Was Ill? No Information not available 12/31/2023 Have You Been To An Area Known To Be High Risk For COVID-19? No Information not available 12/31/2023 Are You Currently Employed? 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 No Information not available 09/11/2023 What Type Of Diet Are You Following? REGULAR Information not available 09/11/2023 What Is The Highest Grade Or Level Of School You Have Completed Or The Highest Degree You Have Received? [id number] Information not available 11/10/2023 Are There Any Guns Present In Your Home? No Information not available 09/11/2023 In The Past 7 Days, How Many Days Did You Exercise? 0 Information not available 11/10/2023 In The Past 7 Days, How Much Pain Have You [place]? None Information not available 11/10/2023 In General, Would You Say You Health Is: Very Good Information not available 11/10/2023 How Would You Describe The Condition Of Your Mouth And Teeth- Including False Teeth Or Dentures? Good Information not available 11/10/2023 Each Night, How Many Hours Of Sleep Do You Get? 4 Information no t available 11/10/2023 Has Anyone Ever Told You That You Snore? No Information not available 11/10/2023 In The Past 7 Days, How Often Have You [place] Sleepy In The Daytime? Never Information not available 11/10/2023 # Alcohol Drinks Per Week 0 Information not available 11/10/2023 What Was The Date Of Your Most Recent Tobacco Screening? 10/25/2024 Information not available 10/25/2024 What Is Your Relationship Status? Single Information not available 09/11/2023 Do You Use Your Seat Belt Or Car Seat Routinely? Yes Information not available 09/11/2023 Do You Have Smoke And Carbon Monoxide Detectors In Your Home? Yes Information not available 09/11/2023 Do You Feel Stressed (tense, Restless, Nervous, Or Anxious, Or Unable To Sleep At Night)? CX33640-5 Information not available 11/10/2023 Do You Use Any Illicit Or Recreational Drugs? No Information not available 09/11/2023 Do You Use Sunscreen Routinely? No Information not available 09/11/2023 Has Tobacco Cessation Counseling Been Provided? No Information not available 09/11/2023 Do You Or Have You Ever Used Any Other Forms Of Tobacco Or Nicotine? No Information not available 09/11/2023 Sex: Female Functional Status Question Answer Note LastModified by Organizat ion Details LastModified Time Are you able to care for yourself? Yes Information not available 09/11/2023 What is your exercise level? Occasional Information not available 09/11/2023 Mental Status None recorded. Family History Relationship Description Onset Age of this Age Resolved Age Notes LastModified by Organization Details LastModified Time Father Asthma [email or web address] Not availabl e 09/11/2023 10:29:08 Father Heart disease [email or web address] Not available 07/2023 10:29:45 Father Hypertensive disorder bandersonma Not available 07/2023 10:29:56 Mother Malignant tumor of colon bandersonma Not available 07/2023 10:29:23 Sister Malignant tumor of colon bandersonma Not available 07/2023 10:29:32 Sister Hypertensive disorder bandersonma Not available 07/2023 10:30:02 Brother Hypertensive disorder bandersonma Not available 07/2023 10:30:06 Medical History Condition Response Coronary Artery Disease N Other N Atrial Fibrillation N High Blood Pressure Y Depression N COPD N Blood Clots N Anxiety Disorder N Muscle, Joint, or Bone Problems N Acid Reflux (GERD) N Cancer N Stroke N Headaches N Kidney or Bladder Problems Y Have you had a mammogram in the last yea r? Y Skin Problems N Asthma N Allergies Y Hepatitis N High Cholesterol Y Liver Disease N Thyroid Problems N GI Problems N Anemia N Heart Attack (NH) N Diabetes N Seizures/Epilepsy N Have you had a colonoscopy in the last 1 0 years? Y Heart Failure N Osteoporosis N Gynecological History Statement/Question Response If Post Menopausal, Age at Menopause 47 Current Control Method None On BCP's at Conception? N Obstetrics History GPAL:G 0 P 0 0 0 0 Immunizations Vaccine Type Date Status Note Provider Nam e and Address Organization Details Recorded Time Influenza, high-dose, quadrivalent, PF 1 completed Katelin Delgado [place] null, [place] - [facility] 09/11/2023 10:45:19 Influenza, high-dose, quadrivalent, PF 3 completed Katelin Del[place], [place] [facility] 09/11/2023 10:45:19 COVID-19, mRNA, LNP-S, PF, 30 mcg/0.3 mL dose 1 completed GAYLE Rod[place], [place] [facility] 09/11/2023 10:45:19 COVID-19, mRNA, LNP-S, PF, 30 mcg/0.3 mL dose 1 completed Katelin Del[place], [place] [facility] 09/11/2023 10:45:19 COVID-19, mRNA, LNP-S, PF, 30 mcg/0.3 mL dose 1 completed GAYLE [place] [facility] 09/11/2023 10:45:19 Influenza, high-dose, trivalent, PF 8 completed Katelin Del[place], [place] [facility] 09/11/2023 10:45:19 Influenza, split virus, trivalent, preservative 9 completed Katelin Delgado MA null, [place] - [facility] 09/11/2023 10:45:19 Influenza, high-dose, trivalent, PF 4 completed Sophie Anderson MD Attn: Accounting,[address] [facility], [place], [address], [facility] 06/11/2024 13:42:43 Past Encounters Encounter ID Performer Location Encounter Start Date Encounter Closed Date Diagnosis/Indication Diagnosis SNOMED-CT Code Diagnosis ICD10 Code Diagnosis Note [id number] [facility] [address] [place] [id number] 09/11/2023 10:16:24 09/11/2023 11:51:58 Essential hypertension 22184536 I10 Acute sinusitis 67249276 J01.90 Gastro-eso phageal reflux disease with esophagitis 106690127 K21.00 Hyperlipidemia 34468057 E78.5 Vitamin D below reference range 468224488 E55.9 [id number] Sophie Anderson MD [facility] (Adult Med) [address] [place] [phone] 0 11/06/2023 09:52:03 11/06/2023 11:04:24 Essential hypertension 17695929 I10 [id number] [facility] [address] [place] [address] [id number] 11/10/2023 09:33:47 11/10/2023 10:26:12 Adult health examination 933938610 Z00.00 Health Risk Assessment collected and reviewed [id number] Sophie Anderson MD [facility] [place] [address] [place] [address] 12/31/2023 16:14:13 12/31/2023 17:32:39 Obesity 138087973 E66.8 Edema of l ower extremity 828319368 R60.0 Essential hypertension 91893935 I10 Congestive heart failure 45987498 I50.9 [id number] MD Miriam Daniels (Adult Med) [address] [place] [id number] 0 03/11/2024 09:48:15 03/11/2024 10:25:01 Obese 672901790 E66.9 Essential hypertension 56895493 I10 Gastro-eso phageal reflux disease with esophagitis 502536570 K21.00 Hyperlipidemia 69181110 E78.5 [id number] Sophie Anderson MD [facility] (Adult Med) [address] [place] [id number] 0 06/08/2024 09:29:37 06/08/2024 10:13:19 Obesity 072869050 E66.9 Essential hypertension 78276223 I10 Administra tion of influenza vaccine 24307291 Z23 Gastro-eso phageal reflux disease with esophagitis 797534595 K21.00 Hyperlipidemia 79278515 E78.5 [id number] Sophie Anderson MD [facility] (Adult Med) [address] [place] [id number] 0 10/25/2024 13:56:37 10/25/2024 15:10:01 Body mass index 25-29 - overweight 085503285 Z68.29 Overweight 622086824 E66 .3 Sinusitis 19323772 J32.9 Health Concerns Section Related Observation LastModified by Organization Detai ls LastModified Time None Recorded Concern Status LastModified by Organization Details LastModified Time None Recorded Advance Directives Directive Y: Payers Encounter Date Sequence Insurance Name Policy Number Policy Ying Covered Member ID Ying Member ID Guarantor Name 11/10/2023 1 [place] Lorna Dowdy [id number] Lorna Dowdy 11/10/2023 2 [id number] Lorna Dowdy [id number] Lorna Dowdy 12/31/2023 1 [place] Lorna Dowdy [id number] Lorna Dowdy 12/31/2023 2 [id number] Lorna Dowdy [id number] Lorna Dowdy 03/11/2024 1 [place] Lorna Dowdy [id number] Lorna Dowdy 03/11/2024 2 [id number] Lorna Dowdy [id number] Lorna Dowdy 06/08/2024 1 [place] Lorna Dowdy [id number] Lorna Dowdy 06/08/2024 2 [id number] Lorna Dowdy [id number] Lorna Dowdy 10/25/2024 1 [place] Lorna Dowdy [id number] Lorna Dowdy 10/25/2024 2 [id number] Lorna Dowdy [id number] Lorna Dowdy Notes Date Note Type Note Provider Name and Address Organization Details Recorded Time 11/10/2023 text/html MAW 2Reported bypatient.Diet and Nutrition:healthy diet Fracture Risk:no history of fractures; no sudden unexplained fractures Concentration and Memory:no decreased concentrating ability; no memory lapses or loss; does not forget words Speech/Motor difficulties:no speech difficulties; no difficulty expressing formulated concepts; no difficulty with fine manipulative tasks; no difficulty writing/copying; no slowed reaction time; does not knock things over when trying to pick them up Hearing:no loss of hearing Vision:worse near(glasses) Activities of Daily Living:able to bathe with limited or no assistance; able to contol urination and bowels; able to dress with limited or no assistance; able to feed self with limited or no assistance; able to get out of chair or bed with limited or no assistance; able to groom with limited or no assistance; able to toilet with limited or no assistance Instrumental Activities of Daily Living:able to do house work with limited or no assistance; able to grocery shop with limited or no assistance; able to manage medications with limited or no assistance; able to manage money with limited or no assistance; able to prepare meals with limited or no assistance; able to use the phone with limited or no assistance Falls Risk Assessment:no frequent falls while walking; no fall in the past year; no fall since last visit; no dizziness/vertigo Home Safety:reviewed sun protection; no unsafe mary hazzards; no unsafe stairs; working smoke/CO detectors; practicing 'safer sex'; no fire arms; has hand bars in the bathroom/shower; good lighting in the home Sophie Anderson MD Attn: Accounting,[address] [place], [place], [address] [place] [address], [facility] 11/10/2023 22:29:46 12/31/2023 text/html hypertension no headache or dizziness but has had a little bit of edema but no PND or orthopnea. Little bit overweight trouble shedding lb. Edema without PND orthopnea chest pain or palpitations Sophie Anderson MD Attn: Accounting,[address] [place], [place], [address] [place] [address], [facility] 02/09/2024 22:15:03 03/11/2024 text/html hypertension blo od pressure running little bit high. Asymptomatic. GERD no nausea no vomiting. Dyslipidemia does try to watch her diet. Sophie Anderson MD Attn: Accounting, [address] [place], [address], [facility] 03/12/2024 13:13:08 06/08/2024 text/html hypertension fee ls good blood pressure 138/70. Obesity she struggles losing weight GERD no nausea no vomiting no heartburn. Hyperlipidemia she does try to follow a low-fat diet she is taking her rosuvastatin. Sophie Anderson MD Attn: Accounting,[address] [place], [address], [facility] 06/11/2024 13:45:13 10/25/2024 text/html Acute appointmen t feeling dizzy last time she had this she had a sinus infection Sophie Anderson MD Attn: Accounting,[address] [place], [address], [facility] 10/25/2024 21:59:49 OBGyn Episode No OBEpisode recorded.
--- OUTSIDE RECORDS SUMMARY | 2024-10-28 08:02 | XMS_ITS | Data Portability ---
Author Organization [place] [facility], Main Office Address [address] [place] [address] Assessment Encounter Date Assessment Date Assessment LastModified by Organization Details LastModified Time 09/19/2022 09/19/2022 Blood pressure continue current therapy low vitamin-D supplement dyslipidemia check labs reinforce diet elevated LFTs will recheck follow-up 4 months Not available 09/19/2022 10:35:27 01/23/2023 01/23/2023 Blood work has been ordered colonoscopy ordered high-fiber diet regular exercise follow-up 6 months [email or web address] Not available 01/24/2023 15:04:27 06/16/2023 06/16/2023 Hypertension carvedilol lisinopril. Dyslipidemia rosuvastatin. GERD famotidine. Follow-up 6 months blood work ordered flu shot [email or web address] Not available 06/19/2023 22:03:17 Plan of Treatment Reminders Order Date Submit Date Provider Last Modified By Organization Details Last Modified Time Details Appointments None recorded. Lab CMP, serum or plasma 2022 023 [facility], [address], [place], [address], 4 14:40:58 lipid panel, serum 2022 023 [email or web address] apstrata Rachna [facility], [address], [place], [address], 4 19:05:58 CMP, serum or plasma 2022 023 [facility], [address], [place], [address], 3 11:54:15 lipid panel, serum 2022 023 [facility], [address], [place], [address], 3 11:54:14 CMP, serum or plasma 2022 023 [facility], [address], [place], [address], 3 11:46:57 lipid panel, serum 2022 023 [facility], [address], [place], [address], 3 11:46:57 Referral None recorded. Procedures colonoscopy procedure (PROC) 2022 023 ROBBIE Kendrick MD, [address] [place], [address], 3 12:27:21 Surgeries None recorded. Imaging None recorded. Medication Orders None recorded. Patient TargetsNo targets recorded. Patient InstructionsNo instructions recorded. Reason for Referral None Reported. Results Created Date Observation Date Name Description Value Unit Range Abnormal Flag Note LastModifiedBy Organization Detail LastModifiedTime Result Notes None recorded. Problems Name Problem SNOMED Code Status Onset Date Resolution Date Notes Provider Name and Address Organization Details Recorded Time Vitamin D below reference range 286910602 Active 2020 Not Available [facility] 4 19:17:52 Intolerant of heat and cold 336301232 Active 2021 Not Available [facility] 4 19:17:52 Gastroesophag eal reflux disease without esophagitis 197121860 Active 2020 Not Available [facility] 4 19:17:52 Dyspnea 647891119 Active 2021 Not Available [facility] 4 19:17:52 Sialolithiasi s 39915146 Active 2022 Not Available [facility] 4 19:17:52 Vitamin D deficiency 09995615 Active 2021 Not Available [facility] 4 19:17:52 Hyperlipidemi a 24259413 Active 2020 Not Available [facility] 4 19:17:52 Essential hypertension 35021745 Active 2020 Not Available [facility] 4 19:17:52 Allergic rhinitis 13820223 Active 2021 Not Available [facility] 4 19:17:52 Liver enzymes level above reference range 454010555 Active 2021 Not Available [facility] 4 19:17:53 Problem Notes None recorded. Procedures Surgical History Date Name Laterality Status Provider Name and Address Organization Details Recorded Time 12/23/19 17 Colonoscopy completed Not Available [facility] 09/11/19 06:55:46 06/13/20 10 Colonoscopy completed Not Available [facility] 09/11/19 06:55:46 Colonoscopy completed Not Available [facility] 09/10/2022 06:55:46 dilation of esophagus completed Not Available [facility] 09/10/2022 06:55:46 Polyp Removal completed Not Available [facility] 09/10/2022 06:55:46 Imaging Results None recorded. Procedure Notes None recorded. Medical Equipment None Reported. Allergies Allergen ID Allergen Name Allergen Category Reaction Reaction Severity Criticality Documentation Date Start Date Code Code System Note Provider Name and Address Organization Details Recorded Time 14037 Product containin g penicilli n (product) medicatio n Not available Not available Not available 09/10/2022 91916 8001 SNOMED Not Available [facility] 3 07:08:06 98975 erythromy ana medicatio n Not available Not available Not available 09/10/2022 4053 RxNorm Not Available [facility] 3 07:08:06 24817 Cipro medicatio n Not available Not available Not available 09/10/2022 24421 3 RxNorm Not Available [facility] 3 07:08:06 Medications Name Sig Start Date Stop Date Status Note LastModified by Organization Details LastModified Time cyclobenzap rine 10 mg tablet TAKE 1 TABLET BY MOUTH EVERY 8 HOURS NEEDED. MAY CUT IN HALF IF TOO SEDATING active Not Available Not Available No t Available carvedilol 6.25 mg tablet TAKE 1 TABLET BY MOUTH TWICE DAILY active Not Available Not Available No t Available clindamycin HCl 300 mg capsule TK ONE C PO Q 6 H TAT 12/14 completed Not Available Not Available Not Available azithromyci n 250 mg tablet TAKE 2 TABLETS BY MOUTH FOR 1 DAY THEN TAKE 1 TABLET BY MOUTH DAILY FOR 4 DAYS DIRECTED 09/19 completed Not Available Not Available Not Available ibuprofen 800 mg tablet TK 1 T PO Q 8 H PRN P 12/14 completed Not Available Not Available Not Available cephalexin 250 mg capsule TK 1 C PO Q 8 H FOR 5 DAYS 12/14 completed Not Available Not Available Not Available hydrocodone 5 mg-acetamin ophen 325 mg tablet TAKE 1 TO 2 TABLETS BY MOUTH EVERY 4 TO 6 HOURS NEEDED FOR PAIN. MAXIMUM OF 8 TABLETS PER DAY. 06/16 completed Not Available Not Available Not Available peg-electro lyte solution 420 gram oral solution USE DIRECTED BY DOCTORS OFFICE 06/16 completed Not Available Not Available Not Available tramadol 50 mg tablet TAKE 1 TABLET BY MOUTH EVERY 8 HOURS NEEDED 03/31 completed Not Available Not Available Not Available famotidine 20 mg tablet TAKE 1 TABLET PO BID PRN active Not Available Not Available No t Available phenazopyri dine 100 mg tablet TK 2 TS PO TID FOR 2 DAYS 12/14 completed Not Available Not Available Not Available lisinopril 10 mg tablet TAKE 1 TABLET BY MOUTH TWICE DAILY active Not Available Not Available No t Available promethazin e 25 mg tablet TAKE 1/2 TABLET BY MOUTH EVERY 6 HOURS NEEDED FOR NAUSEA 06/16 completed Not Available Not Available Not Available mupirocin 2 % topical ointment JOHANNE EXT AA TID 01/09 completed Not Available Not Available Not Available ergocalcife rol (vitamin D2) 1,250 mcg (50,000 unit) capsule TK 1 C PO Q WK 01/09 completed Not Available Not Available Not Available methylpredn isolone 4 mg tablets in a dose pack TK DIRECTED 01/09 completed Not Available Not Available Not Available ondansetron 4 mg disintegrat ing tablet DIS 1 T ON THE TONGUE Q 8 H PRN 01/09 completed Not Available Not Available Not Available fluticasone propionate 50 mcg/actuati on nasal spray,suspe nsion SHAKE LIQUID AND USE 2 SPRAYS IN EACH NOSTRIL EVERY DAY 09/19 completed Not Available Not Available Not Available doxycycline hyclate 100 mg tablet 12/14 completed Not Available Not Available Not Available loratadine 10 mg tablet TAKE 1 TABLET BY MOUTH EVERY DAY active Not Available Not Available No t Available naproxen 500 mg tablet TAKE 1 TABLET BY MOUTH EVERY 12 HOURS NEEDED 06/16 completed Not Available Not Available Not Available Ventolin HFA 90 mcg/actuati on aerosol inhaler INHALE 2 PUFFS BY MOUTH EVERY 6 HOURS NEEDED FOR WHEEZING OR SHORTNESS OF BREATH active Not Available Not Available No t Available rosuvastati n 10 mg tablet TAKE 1 TABLET BY MOUTH EVERY DAY active Not Available Not Available No t Available nitrofurant oin monohydrate /macrocryst als 100 mg capsule TK 1 C PO BID FOR 7 DAYS 12/14 completed Not Available Not Available Not Available Vitamin D 2021 active Not Available Not Available Not Avai lable lisinopril 5 mg am 5 mg p.m. 12/14 completed Not Available Not Available Not Available multivitami n 2021 active Not Available Not Available Not Avai lable Bystolic 5 mg tablet TK 1 T PO QD 01/09 completed Not Available Not Available Not Available Vitals Date Recorded Body height Heart rate Body temperature Body weight Systolic blood pressure Diastolic blood pressure Provider Name and Address Organization Details Last Updated DateTime 2 163.83 cm 75 /min 98.1 [degF] 82942.8 1 g 126 mm[Hg] 78 mm[Hg] Not Available [facility] 3 06:56:30 Date Recorded Body height Heart rate Body temperature Body weight Systolic blood pressure Diastolic blood pressure Provider Name and Address Organization Details Last Updated DateTime 2 163.83 cm 79 /min 98.4 [degF] 46706.4 4 g 116 mm[Hg] 78 mm[Hg] Not Available [facility] 3 06:56:30 Date Recorded Body height Body mass index (BMI) Body weight Body temperature Heart rate Systolic blood pressure Diastolic blood pressure Provider Name and Address Organization Details Last Updated DateTime 3 163.83 cm 29.1 kg/m2 95793.8 9 g 97.7 [degF] 66 /min 136 mm[Hg] 84 mm[Hg] Courtney KellyJOYA [facility] 3 09:39:43 Date Recorded Body height Body mass index (BMI) Body weight Body temperature Heart rate Systolic blood pressure Diastolic blood pressure Provider Name and Address Organization Details Last Updated DateTime 3 163.83 cm 30.4 kg/m2 66301.6 3 g 97.4 [degF] 73 /min 138 mm[Hg] 88 mm[Hg] Courtney KellyJOYA [facility] 3 09:35:32 Date Recorded Body height Body mass index (BMI) Body weight Body temperature Heart rate Systolic blood pressure Diastolic blood pressure Provider Name and Address Organization Details Last Updated DateTime 3 163.83 cm 31.3 kg/m2 07101.5 9 g 97.2 [degF] 85 /min 132 mm[Hg] 86 mm[Hg] Courtney KellyJOYA [facility] 3 09:48:53 Social History Question Answer Notes LastModified by Organization Details LastModified Time Tobacco Smoking Status Never Smoker Not Available [facility] 09/10/2022 06:55:12 Do You Have An Advance Directive? No Pt Declined Info MIGRATION.0301 [id number] Information not available 09/10/2022 What Is Your Level Of Alcohol Consumption? None MIGRATION.0301 748663 Information not available 09/10/2022 Are You Blind Or Do You Have Difficulty Seeing? No MIGRATION.0301 392495 Information not available 09/10/2022 What Is Your Level Of Caffeine Consumption? Moderate MIGRATION.0301 817641 Information not available 09/10/2022 How Much Tobacco Do You Chew? None MIGRATION.0301 575286 Information not available 09/10/2022 In The 14 Days Before Symptom Onset, Have You Had Close Contact With A Laboratory-conf irmed COVID-19 While That Case Was Ill? No MIGRATION.0301 401550 Information not available 09/10/2022 In The 14 Days Before Symptom Onset, Have You Had Close Contact With A Person Who Is Under Investigation For COVID-19 While That Person Was Ill? No MIGRATION.0301 759780 Information not available 09/10/2022 Are You Deaf Or Do You Have Serious Difficulty Hearing? No MIGRATION.0301 690866 Information not available 09/10/2022 What Type Of Diet Are You Following? REGULAR MIGRATION.0301 697290 Information not available 09/10/2022 Which Illicit Or Recreational Drugs Have You Used? None MIGRATION.0301 940297 Information not available 09/10/2022 Do You Or Have You Ever Used E-cigarettes Or Vape? Never Used Electronic Cigarettes MIGRATION.0301 070963 Information not available 09/10/2022 What Is The Highest Grade Or Level Of School You Have Completed Or The Highest Degree You Have Received? 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 No MIGRATION.0301 107374 Information not available 09/10/2022 What Is The Fluoride Status Of Your Home? Unknown MIGRATION.0301 368706 Information not available 09/10/2022 Are There Any Guns Present In Your Home? No MIGRATION.0301 404067 Information not available 09/10/2022 Do You Use Insect Repellent Routinely? No MIGRATION.0301 095851 Information not available 09/10/2022 Where Do You Live? SingleLevelHouse MIGRATION.0301 509875 Information not available 09/10/2022 Do You Have A Medical Power Of Docent Coordinator? No MIGRATION.0301 123189 Information not available 09/10/2022 What Was The Date Of Your Most Recent Tobacco Screening? 06/16/2023 Information not available 06/16/2023 Do You Have Any Pets? No MIGRATION.0301 461783 Information not available 09/10/2022 What Is Your Relationship Status? Single MIGRATION.0301 985477 Information not available 09/10/2022 Do You Use Your Seat Belt Or Car Seat Routinely? Yes MIGRATION.0301 978935 Information not available 09/10/2022 Do You Have Smoke And Carbon Monoxide Detectors In Your Home? Yes MIGRATION.0301 051646 Information not available 09/10/2022 Are You Passively Exposed To Smoke? No MIGRATION.0301 318048 Information not available 09/10/2022 Do You Or Have You Ever Used Smokeless Tobacco? Never Used Smokeless Tobacco MIGRATION.0301 630735 Information not available 09/10/2022 Are There Any Smokers In Your House? No MIGRATION.0301 603826 Information not available 09/10/2022 How Much Tobacco Do You Smoke? No MIGRATION.0301 230124 Information not available 09/10/2022 What Types Of Sporting Activities Do You Participate In? None MIGRATION.0301 194674 Information not available 09/10/2022 Do You Feel Stressed (tense, Restless, Nervous, Or Anxious, Or Unable To Sleep At Night)? [id number] MIGRATION.0301 637797 Information not available 09/10/2022 Do You Use Any Illicit Or Recreational Drugs? No MIGRATION.0301 500817 Information not available 09/10/2022 Do You Use Sunscreen Routinely? Yes MIGRATION.0301 682009 Information not available 09/10/2022 Has Tobacco Cessation Counseling Been Provided? No Not Needed-nev er Smoked MIGRATION.0301 874603 Information not available 09/10/2022 How Many Years Have You Smoked Tobacco? 0 MIGRATION.0301 658252 Information not available 09/10/2022 Have You Recently Traveled Abroad? No MIGRATION.0301 569523 Information not available 09/10/2022 Do You Have Any Dietary Restrictions? No MIGRATION.0301 884122 Information not available 09/10/2022 Do You Or Have You Ever Used Any Other Forms Of Tobacco Or Nicotine? No MIGRATION.0301 931923 Information not available 09/10/2022 Sex: Female Functional Status Question Answer Note LastModified by Organizat ion Details LastModified Time Do you have difficulty walking or climbing stairs? No MIGRATION.0773494 026 Information not available 09/10/2022 Do you have transportation difficulties? No MIGRATION.1912763 026 Information not available 09/10/2022 Are you able to walk? YESWOREST MIGRATION.4747504 026 Information not available 09/10/2022 Do you have difficulty doing errands alone? No MIGRATION.4408771 026 Information not available 09/10/2022 Are you able to care for yourself? Yes MIGRATION.8514308 026 Information not available 09/10/2022 Do you have difficulty dressing or bathing? No MIGRATION.9866216 026 Information not available 09/10/2022 What is your exercise level? Occasional MIGRATION.9800633 026 Information not available 09/10/2022 Mental Status Question Answer Note LastModified by Organizat ion Details LastModified Time Do you have difficulty concentrating, remembering or making decisions? No MIGRATION.265811128 6 Information not available 09/10/2022 Family History Relationship Description Onset Age of this Age Resolved Age Notes LastModified by Organization Details LastModified Time Mother Carcinoma of colon 88 MIGRATION.205 [id number] Not available 09/10/2022 06:55:47 Father Essential hypertension 74 MIGRATION.748 7251183 Not available 09/10/2022 06:55:48 Father Pulmonary emphysema MIGRATION.480 3901540 Not available 09/10/2022 06:55:48 Sister Carcinoma of colon 50 MIGRATION.492 2299419 Not available 09/10/2022 06:55:48 Sister Aortic aneurysm 80 MIGRATION.340 6813398 Not available 09/10/2022 06:55:48 Medical History Condition Response NERVE DISEASE N BLINDNESS N RHEUMATIC FEVER N KIDNEY STONES N BLADDER PROBLEMS N MRSA N OTHER # 1 N POLIO N LUNG DISEASE/DISORDER N RADIATION / CHEMOTHERAPY N COPD N Other # 2 N BLOOD DISEASES N EAR OR HEARING PROBLEMS N MUMPS N BOWEL PROBLEMS N DEPRESSION (INCLUDING POST ) N STROKE/TIA N ULCERS N BENIGN PROSTATIC HYPERPLASIA N MEASLES N MYOCARDIAL INFARCTION N OBESITY N GERD/NAUSEA N ANEURYSM N URINARY/BLADDER/KIDNEY PROBLEMS N CORONARY ARTERY DISEASE (CAD) N ADDICTION CONCERNS N ENDOMETRIOSIS N Impotence N USE OF BLOOD THINNERS N SKIN PROBLEMS N GASTROINTESTINAL DISORDER N PERIPHERAL VASCULAR DISEASE N MUSCLE,JOINT OR BONE PROBLEMS N GASTROINTESTINAL BLEEDING N BLOOD CLOTS N ASTHMA N CATARACTS N ERECTILE DYSFUNCTION N VARICOSITIES N GI PROBLEMS N Low Testosterone N INFERTILITY N AIDS/HIV N CHEMOTHERAPY / RADIATION N LIVER DISEASE N MALE HYPOGONADISM N HYPERTENSION Y Deficiency Y TOURETTE'S N ANXIETY DISORDER N BLOOD TRANSFUSION N ANEMIA/BLOOD DISORDER N CHRONIC EAR INFECTIONS N BRONCHITIS N TUBERCULOSIS N GLAUCOMA N FOOT PROBLEM N DIVERTICULITIS Y SLEEP APNEA N CHICKENPOX N INFECTIOUS DISEASE N HEART ARRHYTHMIA N PROSTATE N INSOMNIA N HIGH CHOLESTEROL / HYPERLIPIDEMIA Y HYPERTHYROIDISM N EYE PROBLEMS N EDEMA N CHRONIC PAIN SYNDROME N HYPOTHYROIDISM N CAROTID BLOCKAGE N CONSTIPATION N BACK / NECK PROBLEMS N HAVE YOU BEEN HOSPITALIZED OR SEEN IN [facility] ER IN THE PAST YEAR ? N ATHEROSCLEROSIS N BREAST PROBLEMS N DIALYSIS N ECZEMA N OSTEOPOROSIS N ARTHRITIS N APPENDICITIS N DIABETES, TYPE N BAD TEETH N ENT N HEARTBURN / REFLUX N AUTISM SPECTRUM DISORDER (ASD) N HEPATITIS / LIVER DISEASE N GOUT N SLEEP DISORDER N ALZHEIMER'S DISEASE N Brain Problems N HERPES N DEMENTIA N HEADACHES/MIGRAINES N SEIZURES/EPILEPSY N VASCULAR DISEASE N PACEMAKER N Blood Disorder N DIZZINESS Y HEART DISEASE/HEART PROBLEMS N KIDNEY DISEASE N MULTIPLE SCLEROSIS N CARDIAC ARRHYTHMIA N CANCER: SPECIFY N ATRIAL FIBRILLATION N Gall Stones N PULMONARY EMBOLISM N AUTOIMMUNE DISEASE N Gynecological History Statement/Question Response Date of Last Pap Date of Last Mammogram 06/06/2020 Date of Last Colonoscopy Most Recent Bone Density Obstetrics History GPAL:G 0 P 0 0 0 0 Immunizations Vaccine Type Date Status Note Provider [facility] karla and Address Organization Details Recorded Time Influenza, high-dose, quadrivalent, PF 06/16/2023 completed Kingsley Anderson MD [address] [facility], [facility] [[email or web address] [address], [place], [address], [facility] [employer] [facility] 06/19/2023 22:02:46 COVID-19, mRNA, LNP-S, PF, 30 mcg/0.3 mL dose 05/04/2021 completed Not Available [facility] 4 19:17:53 COVID-19, mRNA, LNP-S, PF, 30 mcg/0.3 mL dose 10/05/2020 completed Not Available [facility] 4 19:17:53 COVID-19, mRNA, LNP-S, PF, 30 mcg/0.3 mL dose 09/07/2020 completed Not Available [facility] 4 19:17:53 Past Encounters Encounter ID Performer Location Encounter Start Date Encounter Closed Date Diagnosis/Indication Diagnosis SNOMED-CT Code Diagnosis ICD10 Code Diagnosis Note [id number] [facility] [[email or web address] [address] [facility], [facility] [[email or web address] [address] [place] [address] 01/09/2021 00:00:00 01/14/2021 17:39:43 [id number] [facility] [address] [facility] [[email or web address] [address] [place] [address] 06/19/2021 00:00:00 06/30/2021 12:54:12 [id number] [facility] [address] [place] [address] Ave[address] [address] 12/18/2021 00:00:00 12/18/2021 21:19:52 [id number] [facility] [address] [place] [address] Ave[address] [address] 03/31/2022 00:00:00 03/31/2022 23:31:48 [id number] [facility] Internal Med [facility] [address] [place] [address] Ave[address] [address] 04/23/2022 00:00:00 04/27/2022 23:32:54 [id number] Kingsley [facility] MD [facility] [address] [place] [address] Felixe., [address] [address] 09/19/2022 09:30:22 09/19/2022 10:19:44 Essential hypertension 93526193 I10 Vitamin D below reference range 265503116 E55.9 Hyperlipidemia 93475582 E78.5 [id number] Kingsley Anderson MD [facility] Internal Med [facility] [address] [place], [place] [address]e., [address] [address] 01/23/2023 09:27:08 01/23/2023 09:50:23 Essential hypertension 42508731 I10 History of malignant neoplasm of colon 569661170 Z85.038 Gastroesop hageal reflux disease without esophagitis 638822618 K21.9 Hyperlipidemia 76680181 E78.5 [id number] Kingsley Anderson MD [facility] Internal Med [facility] [address] [place] [address] Ave[address] [address] 06/16/2023 09:40:41 06/16/2023 10:43:58 Administration of influenza vaccine 93542584 Z23 Essential hypertension 93402397 I10 Gastroesop hageal reflux disease without esophagitis 731220324 K21.9 Hyperlipidemia 35089321 E78.5 Health Concerns Section Related Observation LastModified by Organization Detai ls LastModified Time None Recorded Concern Status LastModified by Organization Details LastModified Time None Recorded Advance Directives Directive N: pt declined info Payers Encounter Date Sequence Insurance Name Policy Number Policy Ying Covered Member ID Ying Member ID Guarantor Name 09/19/2022 1 [place] Lorna Dowdy [id number] Lorna Dowdy 09/19/2022 2 [id number] Lorna Dowdy [id number] Lorna Dowdy 01/23/2023 1 [place] Lorna Dowdy [id number] Lorna Dowdy 01/23/2023 2 [id number] Lorna Dowdy [id number] Lorna Dowdy 06/16/2023 1 [place] Lorna Dowdy [id number] Lorna Dowdy 06/16/2023 2 [id number] Lorna Dowdy [id number] Lorna Dowdy Notes Date Note Type Note Provider Name and Address Organization Details Recorded Time 09/19/2022 text/html Hypertension no headache no dizziness. Low vitamin-D level needs to be checked dyslipidemia tries to follow low-fat diet. Elevated liver enzymes will recheck she is asymptomatic Kingsley Anderson MD [address] [facility], [place], [address], [employer] [facility] 09/19/2022 10:35:47 01/23/2023 text/html GERD doing fine hypertension no headache no dizziness dyslipidemia does try to follow low-fat diet history of colon polyps needs a scope Kingsley Anderson MD [address], [place], [address], [facility] 01/24/2023 15:04:46 06/16/2023 text/html GERD doing fine hypertension no headache no dizziness dyslipidemia does try to follow low-fat diet history of colon polyps needs a scope Kingsley Anderson MD [address], [place], [address], [employer] [facility] 06/19/2023 22:04:09 [facility] Episode No OBEpisode recorded.
== END 2024-10-28 07:55 | disposition home or self-care (01) ==
PROVIDERS: PCP Internal Medicine; Referring Provider Internal Medicine Nephrology; Visit Provider Internal Medicine
DX: R79.89 Other specified abnormal findings of blood chemistry (principal); R93.1 Abnormal findings on diagnostic imaging of heart and coronary circulation; R94.4 Abnormal results of kidney function studies; I10 Essential (primary) hypertension; E87.6 Hypokalemia; E83.42 Hypomagnesemia
CPT/HCPCS: 76775

== ENCOUNTER 2024-11-22 09:36 | Outpatient (CLI) | payer MEDICARE, SELFPAY ==
--- OUTSIDE RECORDS SUMMARY | 2024-11-22 09:47 | XMS_ITS | Data Portability ---
Author Organization [facility] Shanna ANNA Address [address] [facility] [place] [address] Care Team Providers Care Medical Equipment Sales Name Role Phone SOPHIE ANDERSON Primary Care [...] some hypertensive readings at home she says [email or web address] Not available 02/09/2024 22:14:29 03/11/2024 03/11/2024 Increase the Coreg to 12.5 b.i.d. dyslipidemia rosuvastatin GERD pantoprazole and conservative measures rhinitis loratadine we will also continue her lisinopril and her furosemide. Using her famotidine as well see me back in 3 months [email or web address] Not available 03/12/2024 13:12:51 06/08/2024 06/08/2024 Says that she is getting her mammograms at [facility]. Blood pressure is controlled CBC CMP lipid colonoscopy 2024 follow up 4 months [email or web address] Not available 06/11/2024 13:44:55 10/25/2024 10/25/2024 No orthostatic symptoms treat empirically with doxycycline for a week and she will call if not improved [email or web address] Not available 10/25/2024 21:59:33 11/02/2024 11/02/2024 We will continue current therapy most recent blood work has been reviewed she will see me back in 4 months her sinus infection has resolved [email or web address] Not available 11/06/2024 21:25:22 Plan of Treatment Reminders Order Date Submit Date Provider Last Modified By Organization Details Last Modified Time Details Appointments ANY 15 2024 09:00A M Sophie Anderson MD Not available Not available Not available Lab lipid panel, serum 2023 024 [facility], [address], [place], [address], 06/09/2024 07:14:23 CMP, serum or plasma 2023 024 [facility], [address], [place], [address], 06/09/2024 07:14:24 CBC w/ auto diff 2023 024 [facility], [address], [place], [address], 06/09/2024 07:14:25 CBC w/ auto diff 2023 024 [facility], [address], [place], [address], 01/02/2024 07:15:29 CMP, serum or plasma 2023 024 [facility], [address], [place], [address], 01/02/2024 07:15:29 BNP (B-type natriuret ic peptide), serum or plasma 2023 024 [email or web address] [facility], [address], [place], [address], 01/03/2024 11:24:36 Referral None recorded. Procedures None recorded. Surgeries None recorded. Imaging US, echocardi ogram 2023 024 [facility] [address], [place], [address], 01/29/2024 11:39:25 Medication Orders doxycycli ne hyclate 100 mg tablet 2024 025 [email or web address] [id number], [address], [place], [place], [id number], 10/25/2024 16:31:33 Coreg 12.5 mg tablet 2023 024 [email or web address] [facility] #[id number], [address], [place], [place], [id number], 03/11/2024 12:25:22 Patient TargetsNo targets recorded. Patient Instructions Encounter Date Encounter Id Patient Instructions Last Modified By Organization Details Last Modified Time 12/31/2023 [id number] A healthy lifestyle: care instructions [email or web address] Not available 12/31/2023 21:11:44 06/08/2024 [id number] A healthy lifestyle: care instructions [email or web address] Not available 06/08/2024 12:16:08 10/25/2024 [id number] A healthy lifestyle: care instructions [email or web address] Not available 10/25/2024 16:31:33 11/02/2024 [id number] A healthy lifestyle: care instructions [email or web address] Not available 11/02/2024 14:27:34 Reason for Referral None Reported. Results Created Date Observation Date Name Description Value Unit Range Abnormal Flag Note LastModifiedBy Organization Detail LastModifiedTime 01/01/20 24 01/02/2024 COMP. METAB OLIC PANEL (14) glucose 121 mg/dL 70-99 above high normal Not Available [facility] ([facility]) [address] [place], [address], 01/02/2024 07:15:29 01/01/20 24 01/02/2024 COMP. METAB OLIC PANEL (14) BUN 9 mg/dL 8-27 Not Available [facility] ([facility]) [address] [place], [address], 01/02/2024 07:15:29 01/01/20 24 01/02/2024 COMP. METAB OLIC PANEL (14) creatinine 0.88 mg/dL 0.57-1 .00 Not Available [facility] ([facility]) [address] [place], [address], 01/02/2024 07:15:29 01/01/20 24 01/02/2024 COMP. METAB OLIC PANEL (14) eGFR 69 mL/mi n/1.7 3 >59 Not Available [facility] ([facility]) [address] [place], [address], 01/02/2024 07:15:29 01/01/20 24 01/02/2024 COMP. METAB OLIC PANEL (14) BUN/creatini ne ratio 10 12-28 below low normal Not Available [facility] ([facility]) [address] [place], [address], 01/02/2024 07:15:29 01/01/20 24 01/02/2024 COMP. METAB OLIC PANEL (14) sodium 141 mmol/ L 134-14 4 Not Available [facility] ([facility]) [address] [place], [address], 01/02/2024 07:15:29 01/01/20 24 01/02/2024 COMP. METAB OLIC PANEL (14) potassium 3.9 mmol/ L 3.5-5. 2 Not Available [facility] ([facility]) [address] [place], [address], 01/02/2024 07:15:29 01/01/20 24 01/02/2024 COMP. METAB OLIC PANEL (14) chloride 105 mmol/ L 96-106 Not Available [facility] ([place] [facility]) [address] [place], [address], 01/02/2024 07:15:29 01/01/20 24 01/02/2024 COMP. METAB OLIC PANEL (14) carbon dioxide, total 23 mmol/ L 20-29 Not Available [facility] ([facility]) [address] [place], [address], 01/02/2024 07:15:29 01/01/20 24 01/02/2024 COMP. METAB OLIC PANEL (14) calcium 9.1 mg/dL 8.7-10 .3 Not Available [facility] ([facility]) [address], [place], [address], 01/02/2024 07:15:29 01/01/20 24 01/02/2024 COMP. METAB OLIC PANEL (14) protein, total 6.2 g/dL 6.0-8. 5 Not Available [facility] ([facility]) [address], [place], [address], 01/02/2024 07:15:29 01/01/20 24 01/02/2024 COMP. METAB OLIC PANEL (14) albumin 4.2 g/dL 3.8-4. 8 Not Available [facility] ([facility]) [address], [place], [address], 01/02/2024 07:15:29 01/01/20 24 01/02/2024 COMP. METAB OLIC PANEL (14) globulin, total 2.0 g/dL 1.5-4. 5 Not Available [facility] ([facility]) [address], [place], [address], 01/02/2024 07:15:29 01/01/20 24 01/02/2024 COMP. METAB OLIC PANEL (14) bilirubin, total 0.3 mg/dL 0.0-1. 2 Not Available [facility] ([facility]) [address], [place], [address], 01/02/2024 07:15:29 01/01/20 24 01/02/2024 COMP. METAB OLIC PANEL (14) alkaline phosphatase 68 IU/L 44-121 Not Available [facility] ([facility]) [address], [place], [address], 01/02/2024 07:15:29 01/01/20 24 01/02/2024 COMP. METAB OLIC PANEL (14) AST (SGOT) 24 IU/L 0-40 Not Available [facility] ([facility]) [address] [place], [address], 01/02/2024 07:15:29 01/01/20 24 01/02/2024 COMP. METAB OLIC PANEL (14) ALT (SGPT) 27 IU/L 0-32 Not Available [facility] ([facility]) [address] [place], [address], 01/02/2024 07:15:29 01/01/20 24 01/02/2024 CBC WITH DIFFE RENTI AL/PL ATELE T WBC 7.2 x10e3 /uL 3.4-10 .8 Not Available [facility] ([facility]) [address] [place], [address], 01/02/2024 07:15:29 01/01/20 24 01/02/2024 CBC WITH DIFFE RENTI AL/PL ATELE T RBC 4.30 x10e6 /uL 3.77-5 .28 Not Available [facility] ([facility]) [address] [place], [address], 01/02/2024 07:15:29 01/01/20 24 01/02/2024 CBC WITH DIFFE RENTI AL/PL ATELE T hemoglobin 13.0 g/dL 11.1-1 5.9 Not Available [facility] ([facility]) [address] [place], [address], 01/02/2024 07:15:29 01/01/20 24 01/02/2024 CBC WITH DIFFE RENTI AL/PL ATELE T hematocrit 39.1 % 34.0-4 6.6 Not Available [facility] ([facility]) [address] [place], [address], 01/02/2024 07:15:29 01/01/20 24 01/02/2024 CBC WITH DIFFE RENTI AL/PL ATELE T MCV 91 fL 79-97 Not Available [facility] ([facility]) [address] [place], [address], 01/02/2024 07:15:29 01/01/20 24 01/02/2024 CBC WITH DIFFE RENTI AL/PL ATELE T MCH 30.2 pg 26.6-3 3.0 Not Available [facility] ([facility]) [address] [facility], [place], [address], 01/02/2024 07:15:29 01/01/20 24 01/02/2024 CBC WITH DIFFE RENTI AL/PL ATELE T MCHC 33.2 g/dL 31.5-3 5.7 Not Available [facility] ([facility]) [address] [place], [address], 01/02/2024 07:15:29 01/01/20 24 01/02/2024 CBC WITH DIFFE RENTI AL/PL ATELE T RDW 12.8 % 11.7-1 5.4 Not Available [facility] ([facility]) [address] [place], [address], 01/02/2024 07:15:29 01/01/20 24 01/02/2024 CBC WITH DIFFE RENTI AL/PL ATELE T platelets 250 x10e3 /uL 150-45 0 Not Available [facility] ([facility]) [address] [facility], [place], [address], 01/02/2024 07:15:29 01/01/20 24 01/02/2024 CBC WITH DIFFE RENTI AL/PL ATELE T neutrophils 63 % notest ab. Not Available [facility] ([facility]) [address] [place], [address], 01/02/2024 07:15:29 01/01/20 24 01/02/2024 CBC WITH DIFFE RENTI AL/PL ATELE T lymphs 30 % notest ab. Not Available [facility] ([facility]) [address] [facility], [place], [address], 01/02/2024 07:15:29 01/01/20 24 01/02/2024 CBC WITH DIFFE RENTI AL/PL ATELE T monocytes 5 % notest ab. Not Available [facility] ([facility]) [address] [facility], [place], [address], 01/02/2024 07:15:29 01/01/20 24 01/02/2024 CBC WITH DIFFE RENTI AL/PL ATELE T eos 1 % notest ab. Not Available [facility] ([facility]) [address] [facility], [place], [address], 01/02/2024 07:15:29 01/01/20 24 01/02/2024 CBC WITH DIFFE RENTI AL/PL ATELE T basos 1 % notest ab. Not Available [facility] ([facility]) [address] [facility], [place], [address], 01/02/2024 07:15:29 01/01/20 24 01/02/2024 CBC WITH DIFFE RENTI AL/PL ATELE T neutrophils (absolute) 4.5 x10e3 /uL 1.4-7. 0 Not Available [facility] ([facility]) [address] [facility], [place], [address], 01/02/2024 07:15:29 01/01/20 24 01/02/2024 CBC WITH DIFFE RENTI AL/PL ATELE T lymphs (absolute) 2.1 x10e3 /uL 0.7-3. 1 Not Available [facility] ([facility]) [address] [facility], [place], [address], 01/02/2024 07:15:29 01/01/20 24 01/02/2024 CBC WITH DIFFE RENTI AL/PL ATELE T monocytes(ab solute) 0.4 x10e3 /uL 0.1-0. 9 Not Available [facility] ([facility]) [address] [facility], [place], [address], 01/02/2024 07:15:29 01/01/20 24 01/02/2024 CBC WITH DIFFE RENTI AL/PL ATELE T eos (absolute) 0.1 x10e3 /uL 0.0-0. 4 Not Available [facility] ([facility]) [address] [place], [address], 01/02/2024 07:15:29 01/01/20 24 01/02/2024 CBC WITH DIFFE RENTI AL/PL ATELE T baso (absolute) 0.1 x10e3 /uL 0.0-0. 2 Not Available [facility] ([facility]) [address] [place], [address], 01/02/2024 07:15:29 01/01/20 24 01/02/2024 CBC WITH DIFFE RENTI AL/PL ATELE T immature granulocytes 0 % notest ab. Not Available [facility] ([facility]) [address] [place], [address], 01/02/2024 07:15:29 01/01/20 24 01/02/2024 CBC WITH DIFFE RENTI AL/PL ATELE T immature grans (abs) 0.0 x10e3 /uL 0.0-0. 1 Not Available [facility] ([facility]) [address] [place], [address], 01/02/2024 07:15:29 01/01/20 24 01/02/2024 B-TYP E NATRI URETI C PEPTI DE B-type natriuretic peptide 15.0 pg/mL 0.0-10 0.0 Sieme ns ADVIA [facility] XP metho dolog y Not Available [facility] ([facility]) [address] [place], [address], 01/02/2024 09:19:42 06/08/20 24 06/09/2024 LIPID PANEL cholesterol, total 152 mg/dL 100-19 9 Not Available [facility] ([facility]) [address] [place], [address], 06/09/2024 07:14:23 06/08/20 24 06/09/2024 LIPID PANEL triglyceride s 98 mg/dL 0-149 Not Available [facility] ([facility]) [address] [place], [address], 06/09/2024 07:14:23 06/08/20 24 06/09/2024 LIPID PANEL HDL cholesterol 61 mg/dL >39 Not Available [facility] ([facility]) [address] [place], [address], 06/09/2024 07:14:23 06/08/20 24 06/09/2024 LIPID PANEL VLDL cholesterol willy 18 mg/dL 5-40 Not Available [facility] ([facility]) [address] [place], [address], 06/09/2024 07:14:23 06/08/20 24 06/09/2024 LIPID PANEL LDL chol calc ([facility]) 73 mg/dL 0-99 Not Available [facility] ([facility]) [address] [place], [address], 06/09/2024 07:14:23 06/08/20 24 06/09/2024 COMP. METAB OLIC PANEL (14) glucose 132 mg/dL 70-99 above high normal Not Available [facility] ([facility]) [address] [place], [address], 06/09/2024 07:14:24 06/08/20 24 06/09/2024 COMP. METAB OLIC PANEL (14) BUN 8 mg/dL 8-27 Not Available [facility] ([facility]) [address] [place], [address], 06/09/2024 07:14:24 06/08/20 24 06/09/2024 COMP. METAB OLIC PANEL (14) creatinine 0.83 mg/dL 0.57-1 .00 Not Available [facility] ([facility]) [address] [place], [address], 06/09/2024 07:14:24 06/08/20 24 06/09/2024 COMP. METAB OLIC PANEL (14) eGFR 74 mL/mi n/1.7 3 >59 Not Available [facility] ([facility]) [address] [place], [address], 06/09/2024 07:14:24 06/08/20 24 06/09/2024 COMP. METAB OLIC PANEL (14) BUN/creatini ne ratio 10 -28 below low normal Not Available [facility] ([facility]) [address] [place], [address], 06/09/2024 07:14:24 06/08/20 24 06/09/2024 COMP. METAB OLIC PANEL (14) sodium 145 mmol/ L 134-14 4 above high normal Not Available [facility] ([facility]) [address] [place], [address], 06/09/2024 07:14:24 06/08/20 24 06/09/2024 COMP. METAB OLIC PANEL (14) potassium 3.3 mmol/ L 3.5-5. 2 below low normal Not Available [facility] ([facility]) [address] [place], [address], 06/09/2024 07:14:24 06/08/20 24 06/09/2024 COMP. METAB OLIC PANEL (14) chloride 101 mmol/ L 96-106 Not Available [facility] ([facility]) [address] [place], [address], 06/09/2024 07:14:24 06/08/20 24 06/09/2024 COMP. METAB OLIC PANEL (14) carbon dioxide, total 27 mmol/ L Not Available [facility] ([facility]) [address] [place], [address], 06/09/2024 07:14:24 06/08/20 24 06/09/2024 COMP. METAB OLIC PANEL (14) calcium 9.3 mg/dL 8.7-10 .3 Not Available [facility] ([facility]) [address] [place], [address], 06/09/2024 07:14:24 06/08/2006/09/2024 COMP. METAB OLIC PANEL (14) protein, total 6.6 g/dL 6.0-8. 5 Not Available [facility] ([facility]) [address] [place], [address], 06/09/2024 07:14:24 06/08/20 24 06/09/2024 COMP. METAB OLIC PANEL (14) albumin 4.4 g/dL 3.8-4. 8 Not Available [facility] ([facility]) [address] [place], [address], 06/09/2024 07:14:24 06/08/20 24 06/09/2024 COMP. METAB OLIC PANEL (14) globulin, total 2.2 g/dL 1.5-4. 5 Not Available [facility] ([facility]) [address] [place], [address], 06/09/2024 07:14:24 06/08/20 24 06/09/2024 COMP. METAB OLIC PANEL (14) bilirubin, total 0.5 mg/dL 0.0-1. 2 Not Available [facility] ([facility]) [address] [place], [address], 06/09/2024 07:14:24 06/08/20 24 06/09/2024 COMP. METAB OLIC PANEL (14) alkaline phosphatase 80 IU/L 44-121 Not Available [facility] ([facility]) [address] [place], [address], 06/09/2024 07:14:24 06/08/20 24 06/09/2024 COMP. METAB OLIC PANEL (14) AST (SGOT) 20 IU/L 0-40 Not Available [facility] ([facility]) [address] [place], [address], 06/09/2024 07:14:24 06/08/20 24 06/09/2024 COMP. METAB OLIC PANEL (14) ALT (SGPT) 22 IU/L 0-32 Not Available [facility] ([facility]) [address] [place], [address], 06/09/2024 07:14:24 06/08/20 24 06/09/2024 CBC WITH DIFFE RENTI AL/PL ATELE T WBC 8.3 x10e3 /uL 3.4-10 .8 Eff ectiv e Decem fantasma 2023 profi jem [id number] WBC will be made* * non-o rdera ble as a stand -branden e order code. Not Available [facility] ([facility]) [address] [place], [address], 06/09/2024 07:14:25 06/08/20 24 06/09/2024 CBC WITH DIFFE RENTI AL/PL ATELE T RBC 4.65 x10e6 /uL 3.77-5 .28 Not Available [facility] ([facility]) [address] [place], [address], 06/09/2024 07:14:25 06/08/20 24 06/09/2024 CBC WITH DIFFE RENTI AL/PL ATELE T hemoglobin 13.7 g/dL 11.1-1 5.9 Not Available [facility] ([facility]) [address] [facility] [place], [address], 06/09/2024 07:14:25 06/08/20 24 06/09/2024 CBC WITH DIFFE RENTI AL/PL ATELE T hematocrit 42.0 % 34.0-4 6.6 Not Available [facility] ([facility]) [address] [facility], [place], [address], 06/09/2024 07:14:25 06/08/20 24 06/09/2024 CBC WITH DIFFE RENTI AL/PL ATELE T MCV 90 fL 79-97 Not Available [facility] ([facility]) [address] [place], [address], 06/09/2024 07:14:25 06/08/20 24 06/09/2024 CBC WITH DIFFE RENTI AL/PL ATELE T MCH 29.5 pg 26.6-3 3.0 Not Available [facility] ([facility]) [address] [facility], [place], [address], 06/09/2024 07:14:25 06/08/20 24 06/09/2024 CBC WITH DIFFE RENTI AL/PL ATELE T MCHC 32.6 g/dL 31.5-3 5.7 Not Available [facility] ([facility]) [address] [place], [address], 06/09/2024 07:14:25 06/08/20 24 06/09/2024 CBC WITH DIFFE RENTI AL/PL ATELE T RDW 12.5 % 11.7-1 5.4 Not Available [facility] ([facility]) [address] [place], [address], 06/09/2024 07:14:25 06/08/20 24 06/09/2024 CBC WITH DIFFE RENTI AL/PL ATELE T platelets 312 x10e3 /uL 150-45 0 Not Available [facility] ([facility]) [address] [place], [address], 06/09/2024 07:14:25 06/08/20 24 06/09/2024 CBC WITH DIFFE RENTI AL/PL ATELE T neutrophils 65 % notest ab. Not Available [facility] ([facility]) [address] [facility], [place], [address], 06/09/2024 07:14:25 06/08/20 24 06/09/2024 CBC WITH DIFFE RENTI AL/PL ATELE T lymphs 28 % notest ab. Not Available [facility] ([facility]) [address] [facility], [place], [address], 06/09/2024 07:14:25 06/08/20 24 06/09/2024 CBC WITH DIFFE RENTI AL/PL ATELE T monocytes 5 % notest ab. Not Available [facility] ([facility]) [address] [facility], [place], [address], 06/09/2024 07:14:25 06/08/20 24 06/09/2024 CBC WITH DIFFE RENTI AL/PL ATELE T eos 1 % notest ab. Not Available [facility] ([facility]) [address] [facility], [place], [address], 06/09/2024 07:14:25 06/08/20 24 06/09/2024 CBC WITH DIFFE RENTI AL/PL ATELE T basos 1 % notest ab. Not Available [facility] ([facility]) [address] [facility], [place], [address], 06/09/2024 07:14:25 06/08/20 24 06/09/2024 CBC WITH DIFFE RENTI AL/PL ATELE T neutrophils (absolute) 5.4 x10e3 /uL 1.4-7. 0 Not Available [facility] ([facility]) [address] [facility], [place], [address], 06/09/2024 07:14:25 06/08/20 24 06/09/2024 CBC WITH DIFFE RENTI AL/PL ATELE T lymphs (absolute) 2.3 x10e3 /uL 0.7-3. 1 Not Available [facility] ([facility]) [address] [place], [address], 06/09/2024 07:14:25 06/08/20 24 06/09/2024 CBC WITH DIFFE RENTI AL/PL ATELE T monocytes(ab solute) 0.4 x10e3 /uL 0.1-0. 9 Not Available [facility] ([facility]) [address] [place], [address], 06/09/2024 07:14:25 06/08/20 24 06/09/2024 CBC WITH DIFFE RENTI AL/PL ATELE T eos (absolute) 0.1 x10e3 /uL 0.0-0. 4 Not Available [facility] ([facility]) [address] [place], [address], 06/09/2024 07:14:25 06/08/20 24 06/09/2024 CBC WITH DIFFE RENTI AL/PL ATELE T baso (absolute) 0.1 x10e3 /uL 0.0-0. 2 Not Available [facility] ([facility]) [address] [place], [address], 06/09/2024 07:14:25 06/08/20 24 06/09/2024 CBC WITH DIFFE RENTI AL/PL ATELE T immature granulocytes 0 % notest ab. Not Available [facility] ([facility]) [address] [place], [address], 06/09/2024 07:14:25 06/08/20 24 06/09/2024 CBC WITH DIFFE RENTI AL/PL ATELE T immature grans (abs) 0.0 x10e3 /uL 0.0-0. 1 Not Available [facility] ([facility]) [address] [place], [address], 06/09/2024 07:14:25 07/11/20 24 07/12/2024 BASIC METAB OLIC PANEL (8) glucose 136 mg/dL 70-99 above high normal Not Available [facility] ([facility]) [address] [facility], [place], [address], 07/12/2024 08:20:41 07/11/20 24 07/12/2024 BASIC METAB OLIC PANEL (8) BUN 11 mg/dL 8-27 Not Available [facility] ([facility]) [address] [place], [address], 07/12/2024 08:20:41 07/11/20 24 07/12/2024 BASIC METAB OLIC PANEL (8) creatinine 0.94 mg/dL 0.57-1 .00 Not Available [facility] ([facility]) [address] [place], [address], 07/12/2024 08:20:41 07/11/20 24 07/12/2024 BASIC METAB OLIC PANEL (8) eGFR 64 mL/mi n/1.7 3 >59 Not Available [facility] ([facility]) [address] [facility], [place], [address], 07/12/2024 08:20:41 07/11/20 24 07/12/2024 BASIC METAB OLIC PANEL (8) BUN/creatini ne ratio 07-09 Not Available [facility] ([facility]) [address] [place], [address], 07/12/2024 08:20:41 07/11/20 24 07/12/2024 BASIC METAB OLIC PANEL (8) sodium 143 mmol/ L 134-14 4 Not Available [facility] ([facility]) [address] [place], [address], 07/12/2024 08:20:41 07/11/20 24 07/12/2024 BASIC METAB OLIC PANEL (8) potassium 3.4 mmol/ L 3.5-5. 2 below low normal Not Available [facility] ([facility]) [address] [facility] [place], [address], 07/12/2024 08:20:41 07/11/20 24 07/12/2024 BASIC METAB OLIC PANEL (8) chloride 104 mmol/ L 96-106 Not Available [facility] ([facility]) [address] [facility] [place], [address], 07/12/2024 08:20:41 07/11/20 24 07/12/2024 BASIC METAB OLIC PANEL (8) carbon dioxide, total 25 mmol/ L 20-29 Not Available [facility] ([facility]) [address] [facility] [place], [address], 07/12/2024 08:20:41 07/11/20 24 07/12/2024 BASIC METAB OLIC PANEL (8) calcium 9.3 mg/dL 8.7-10 .3 Not Available [facility] ([facility]) [address] [place], [address], 07/12/2024 08:20:41 07/11/20 24 07/12/2024 HEMOG LOBIN A1C hemoglobin A1C 6.8 % 4.8-5. 6 above high normal Predi abete s: 5.7 - 6.4 Diabe lewis: >6.4 Glyce gabino contr ol for adult s with diabe lewis: <7.0 Not Available [facility] ([facility]) [address] [place], [address], 07/12/2024 08:20:42 07/11/2007/12/2024 MAGNE SIUM magnesium 2.0 mg/dL 1.6-2. 3 Not Available [facility] ([facility]) [address] [place], [address], 07/12/2024 08:20:43 07/28/1907/29/2024 BASIC METAB OLIC PANEL (8) glucose 123 mg/dL 70-99 above high normal Not Available [facility] ([facility]) [address] [place], [address], 07/29/2024 09:13:31 07/28/19 25 07/29/2024 BASIC METAB OLIC PANEL (8) BUN 14 mg/dL 8-27 Not Available [facility] ([facility]) [address] [place], [address], 07/29/2024 09:13:31 07/28/1907/29/2024 BASIC METAB OLIC PANEL (8) creatinine 1.22 mg/dL 0.57-1 .00 above high normal Not Available [facility] ([facility]) [address] [place], [address], 07/29/2024 09:13:31 07/28/19 25 07/29/2024 BASIC METAB OLIC PANEL (8) eGFR 47 mL/mi n/1.7 3 >59 below low normal Not Available [facility] ([facility]) [address] [place], [address], 07/29/2024 09:13:31 07/28/19 25 07/29/2024 BASIC METAB OLIC PANEL (8) BUN/creatini ne ratio 11 12-28 below low normal Not Available [facility] ([facility]) [address] [place], [address], 07/29/2024 09:13:31 07/28/1907/29/2024 BASIC METAB OLIC PANEL (8) sodium 138 mmol/ L 134-14 4 Not Available [facility] ([facility]) [address] [place], [address], 07/29/2024 09:13:31 07/28/19 25 07/29/2024 BASIC METAB OLIC PANEL (8) potassium 4.9 mmol/ L 3.5-5. 2 Not Available [facility] ([facility]) [address] [place], [address], 07/29/2024 09:13:31 07/28/19 25 07/29/2024 BASIC METAB OLIC PANEL (8) chloride 101 mmol/ L 96-106 Not Available [facility] ([facility]) [address] [place], [address], 07/29/2024 09:13:31 07/28/19 25 07/29/2024 BASIC METAB OLIC PANEL (8) carbon dioxide, total 23 mmol/ L 20-29 Not Available [facility] ([facility]) [address] [place], [address], 07/29/2024 09:13:31 07/28/19 25 07/29/2024 BASIC METAB OLIC PANEL (8) calcium 10.1 mg/dL 8.7-10 .3 Not Available [facility] ([facility]) [address] [place], [address], 07/29/2024 09:13:31 08/08/19 25 08/09/2024 COMP. METAB OLIC PANEL (14) glucose 124 mg/dL 70-99 above high normal Not Available [facility] ([facility]) [address] [place], [address], 08/09/2024 07:07:57 08/08/19 25 08/09/2024 COMP. METAB OLIC PANEL (14) BUN 29 mg/dL 8-27 above high normal Not Available [facility] ([facility]) [address] [place], [address], 08/09/2024 07:07:57 08/08/19 25 08/09/2024 COMP. METAB OLIC PANEL (14) creatinine 1.80 mg/dL 0.57-1 .00 above high normal Not Available [facility] ([place] [facility]) [address] [place], [address], 08/09/2024 07:07:57 08/08/19 25 08/09/2024 COMP. METAB OLIC PANEL (14) eGFR 29 mL/mi n/1.7 3 >59 below low normal Not Available [facility] ([facility]) [address] [facility], [place], [address], 08/09/2024 07:07:57 08/08/19 25 08/09/2024 COMP. METAB OLIC PANEL (14) BUN/creatini ne ratio 16 12-28 Not Available [facility] ([facility]) [address] [facility], [place], [address], 08/09/2024 07:07:57 08/08/19 25 08/09/2024 C [id number]|2024-11-22 09:49:00|2024-11-22 09:49:00|XMS_ITS|TAQUERIA BARRERA|External Medical Summaries|[id number]|" Referral Summary Created on: November 22, 2024 Marline Landeros : 06/19/1953 Sex: Female Author Organization [facility] [address] Address [address] [place] [address] Care Team Providers Care Medical Equipment Sales Name Role Phone Dudley Nguyen DO Primary Care Provider [phone] Allergies No known active allergies Medications atorvastatin (LIPITOR) 20 mg tablet 08/20/2022 Active Active Problems No known active problems Social History Tobacco Use Types Packs/Day Years Used Date Smoking Tobacco: Never Assessed Comments Unknown Sex and Gender Information Value Date Recorded Sex Assigned at Not on file Legal Sex Female 9:15 PM [employer] Gender Identity Not on file Sexual Orientation Not on file Last Filed Vital Signs Vital Sign Reading Time Taken Comments Blood Pressure 130/84 10/16/2022 11:37 AM CDT Pulse 92 10/16/2022 11:37 AM CDT Temperature 37.1 C (98.8 F) 10/16/2022 11:37 AM CDT Respiratory Rate 22 10/16/2022 11:37 AM CDT Oxygen Saturation 98% 10/16/2022 11:37 AM CDT Inhaled Oxygen Concentration - - Weight 95.3 kg (210 lb) 10/16/2022 11:37 AM CDT Height 175.3 cm (5' 9 ) 10/16/2022 11:37 AM CDT Body Mass Index 31.01 10/16/2022 11:37 AM CDT Plan of Treatment Not on file Insurance MEDICARE [facility] Address: [facility] [address] [place] [address] [employer] Care Teams Medical Equipment Sales Relationship Specialty Start Date End Date Dudley Nguyen DO PCP - General Internal Medicine 10/16/22 "
--- OUTSIDE RECORDS SUMMARY | 2024-11-22 09:47 | XMS_ITS | Clinical Summary ---
Author Organization [employer] [facility] Address [address] [place] [address] Care Team Providers Care Veneer Taping Machine Operator Name Role Phone Kingsley Anderson MD Primary Care Provider [phone] Allergies Active Allergy Reactions Criticality Noted Date [...] Comments Blood Pressure 139/86 06/15/2019 5:57 PM [employer] Pulse 77 06/15/2019 5:57 PM [employer] Temperature 36.7 C (98.1 F) 06/15/2019 5:57 PM [employer] Respiratory Rate 18 06/15/2019 5:57 PM [employer] Oxygen Saturation 94% 06/15/2019 5:57 PM [employer] Inhaled Oxygen Concentration - - Weight 85.3 kg (188 lb) 06/15/2019 5:57 PM [employer] Height 157.5 cm (5' 2 ) 06/15/2019 5:57 PM [employer] Body Mass Index 34.39 06/15/2019 5:57 PM [employer] Plan of Treatment Health Maintenance Due Date Last Done Comments DTAP/TDAP/TD VACCINES (1 - Tdap) 1968 COLORECTAL SCREENING 1994 Colorectal Cancer Screening 1994 [...] A AND B BCBS SUPP Care Teams Veneer Taping Machine Operator Relationship Specialty Start Date End Date Kingsley Anderson MD [address] [place] [phone] PCP - General Internal Medicine 06/15/19
--- OUTSIDE RECORDS SUMMARY | 2024-11-22 09:47 | XMS_ITS | Data Portability ---
Author Organization [facility], Main Office Address [address] [place] [address] Assessment Encounter Date Assessment Date Assessment LastModified by Organization Details LastModified Time 09/19/2022 09/19/2022 Blood pressure continue current therapy low vitamin-D supplement dyslipidemia check labs reinforce diet elevated LFTs will recheck follow-up 4 months Not available 09/19/2022 10:35:27 01/23/2023 01/23/2023 Blood work has been ordered colonoscopy ordered high-fiber diet regular exercise follow-up 6 months [email or web address] Not available 01/24/2023 15:04:27 06/16/2023 06/16/2023 Hypertension carvedilol lisinopril. Dyslipidemia rosuvastatin. GERD famotidine. Follow-up 6 months blood work ordered flu shot [email or web address] Not available 06/19/2023 22:03:17 Plan of Treatment Reminders Order Date Submit Date Provider Last Modified By Organization Details Last Modified Time Details Appointments None recorded. Lab CMP, serum or plasma 2022 023 [facility], [address], [place], [address], 4 14:40:58 lipid panel, serum 2022 023 [email or web address] [facility], [address], [place], [address], 4 19:05:58 CMP, serum or plasma 2022 023 [facility], [address], [place], [address], 3 11:54:15 lipid panel, serum 2022 023 [facility], [address], [place], [address], 3 11:54:14 CMP, serum or plasma 2022 023 [facility], [address], [place], [address], 3 11:46:57 lipid panel, serum 2022 023 [facility], [address], [place], [address], 3 11:46:57 Referral None recorded. Procedures colonoscopy procedure (PROC) 2022 023 ROBBIE Kendrick MD, [address] [place], [address], 3 12:27:21 Surgeries None recorded. Imaging None [...] Recorded Time Vitamin D below reference range 074927598 Active 2020 Not Available [facility] 4 19:17:52 Intolerant of heat and cold 671689105 Active 2021 Not Available [facility] 4 19:17:52 Gastroesophag eal reflux disease without esophagitis 713332305 Active 2020 Not Available [facility] 4 19:17:52 Dyspnea 238492288 Active 2021 Not Available [facility] 4 19:17:52 Sialolithiasi s 15394950 Active 2022 Not Available [facility] 4 19:17:52 Vitamin D deficiency 59504129 Active 2021 Not Available [facility] 4 19:17:52 Hyperlipidemi a 98778030 Active 2020 Not Available [facility] 4 19:17:52 Essential hypertension 78179618 Active 2020 Not Available [facility] 4 19:17:52 Allergic rhinitis 73766013 Active 2021 Not Available [facility] 4 19:17:52 Liver enzymes level above reference range 675069717 Active 2021 Not Available [facility] 4 19:17:53 Problem Notes None recorded. Procedures Surgical History Date Name Laterality Status Provider Name and Address Organization Details Recorded Time 12/23/19 17 Colonoscopy completed Not Available [facility] 09/11/19 06:55:46 06/13/20 10 Colonoscopy completed Not Available [facility] 09/11/19 06:55:46 Colonoscopy completed Not Available [facility] 09/10/2022 06:55:46 dilation of esophagus completed Not Available [facility] 09/10/2022 06:55:46 Polyp Removal completed Not Available [facility] 09/10/2022 06:55:46 Imaging Results None recorded. Procedure Notes None recorded. Medical Equipment None Reported. Allergies Allergen ID Allergen Name Allergen Category Reaction Reaction Severity Criticality Documentation Date Start Date Code Code System Note Provider Name and Address Organization Details Recorded Time 79188 Product containin g penicilli n (product) medicatio n Not available Not available Not available 09/10/2022 01176 8001 SNOMED Not Available [facility] 3 07:08:06 98034 erythromy ana medicatio n Not available Not available Not available 09/10/2022 4053 RxNorm Not Available [facility] 3 07:08:06 69900 Cipro medicatio n Not available Not available Not available 09/10/2022 87956 3 RxNorm Not Available [facility] 3 07:08:06 Medications Name Sig Start Date [...] 2 163.83 cm 75 /min 98.1 [degF] 29468.8 1 g 126 mm[Hg] 78 mm[Hg] Not Available [facility] 3 06:56:30 Date Recorded Body height Heart rate Body temperature Body weight Systolic blood pressure Diastolic blood pressure Provider Name and Address Organization Details Last Updated DateTime 2 163.83 cm 79 /min 98.4 [degF] 60409.4 4 g 116 mm[Hg] 78 mm[Hg] Not Available [facility] 3 06:56:30 Date Recorded Body height Body mass index (BMI) Body weight Body temperature Heart rate Systolic blood pressure Diastolic blood pressure Provider Name and Address Organization Details Last Updated DateTime 3 163.83 cm 29.1 kg/m2 97651.8 9 g 97.7 [degF] 66 /min 136 mm[Hg] 84 mm[Hg] Courtney KellyJOYA [employer] 3 09:39:43 Date Recorded Body height Body mass index (BMI) Body weight Body temperature Heart rate Systolic blood pressure Diastolic blood pressure Provider Name and Address Organization Details Last Updated DateTime 3 163.83 cm 30.4 kg/m2 67146.6 3 g 97.4 [degF] 73 /min 138 mm[Hg] 88 mm[Hg] Courtney JOYA Kelly [employer] 3 09:35:32 Date Recorded Body height Body mass index (BMI) Body weight Body temperature Heart rate Systolic blood pressure Diastolic blood pressure Provider Name and Address Organization Details Last Updated DateTime 3 163.83 cm 31.3 kg/m2 76432.5 9 g 97.2 [degF] 85 /min 132 mm[Hg] 86 mm[Hg] Courtney KellyJOYA [employer] 3 09:48:53 Social History Question Answer Notes LastModified by Organization Details LastModified Time Tobacco Smoking Status Never Smoker Not Available [facility] 09/10/2022 06:55:12 Do You Have An Advance Directive? No Pt Declined Info MIGRATION.030 [id number] Information not available 09/10/2022 Are You Blind Or Do You Have Difficulty Seeing? No MIGRATION.030 654654 Information not available 09/10/2022 What Is Your Level Of Caffeine Consumption? Moderate MIGRATION.030 225437 Information not available 09/10/2022 How Much Tobacco Do You Chew? None MIGRATION.030 326697 Information not available 09/10/2022 In The 14 Days Before Symptom Onset, Have You Had Close Contact With A Laboratory-confi rmed COVID-19 While That Case Was Ill? No MIGRATION.030 321186 Information not available 09/10/2022 In The 14 Days Before Symptom Onset, Have You Had Close Contact With A Person Who Is Under Investigation For COVID-19 While That Person Was Ill? No MIGRATION.030 076751 Information not available 09/10/2022 Are You Deaf Or Do You Have Serious Difficulty Hearing? No MIGRATION.0301 718337 Information not available 09/10/2022 What Type Of Diet Are You Following? REGULAR MIGRATION.0301 424946 Information not available 09/10/2022 Which Illicit Or Recreational Drugs Have You Used? None MIGRATION.0301 897314 Information not available 09/10/2022 What Is The Highest Grade Or Level Of School You Have Completed Or The Highest Degree You Have Received? [id number] MIGRATION.0301 696284 Information not available 09/10/2022 Have There Been Any Changes To Your Family Or Social Situation? No MIGRATION.0301 271260 Information not available 09/10/2022 What Is The Fluoride Status Of Your Home? Unknown MIGRATION.0301 864955 Information not available 09/10/2022 Are There Any Guns Present In Your Home? No MIGRATION.0301 468267 Information not available 09/10/2022 Do You Use Insect Repellent Routinely? No MIGRATION.0301 081274 Information not available 09/10/2022 Where Do You Live? SingleLevelHouse MIGRATION.0301 478969 Information not available 09/10/2022 Do You Have A Medical Power Of Clay Temperer? No MIGRATION.0301 933682 Information not available 09/10/2022 What Was The Date Of Your Most Recent Tobacco Screening? 06/16/2023 [email or web address] Information not available 06/16/2023 Do You Have Any Pets? No MIGRATION.0301 977383 Information not available 09/10/2022 What Is Your Relationship Status? Single MIGRATION.0301 525450 Information not available 09/10/2022 Do You Use Your Seat Belt Or Car Seat Routinely? Yes MIGRATION.0301 577183 Information not available 09/10/2022 Do You Have Smoke And Carbon Monoxide Detectors In Your Home? Yes MIGRATION.0301 765499 Information not available 09/10/2022 Are You Passively Exposed To Smoke? No MIGRATION.0301 512422 Information not available 09/10/2022 Are There Any Smokers In Your House? No MIGRATION.0301 061038 Information not available 09/10/2022 How Much Tobacco Do You Smoke? No MIGRATION.0301 650322 Information not available 09/10/2022 What Types Of Sporting Activities Do You Participate In? None MIGRATION.0301 359667 Information not available 09/10/2022 Do You Use Sunscreen Routinely? Yes MIGRATION.0301 376146 Information not available 09/10/2022 Has Tobacco Cessation Counseling Been Provided? No Not Needed-nev er Smoked MIGRATION.0301 056294 Information not available 09/10/2022 How Many Years Have You Smoked Tobacco? 0 MIGRATION.0301 818273 Information not available 09/10/2022 Have You Recently Traveled Abroad? No MIGRATION.0301 984614 Information not available 09/10/2022 Do You Have Any Dietary Restrictions? No MIGRATION.0301 116498 Information not available 09/10/2022 Sex: Female Functional Status Question Answer Note LastModified by [employer] ion Details LastModified Time Do you or have you ever used smokeless tobacco? Never used smokeless tobacco MIGRATION.539380 9188 Information not available 09/10/2022 Do you have difficulty walking or climbing stairs? No MIGRATION.621272 6567 Information not available 09/10/2022 Do you have transportation difficulties? No MIGRATION.844210 4900 Information not available 09/10/2022 Are you able to care for yourself? Yes MIGRATION.687856 1496 Information not available 09/10/2022 Do you have difficulty dressing or bathing? No MIGRATION.861154 2747 Information not available 09/10/2022 Do you or have you ever used e-cigarettes or vape? Never used electronic cigarettes MIGRATION.002475 9335 Information not available 09/10/2022 What is your exercise level? Occasional MIGRATION.690494 3696 Information not available 09/10/2022 Do you use any illicit or recreational drugs? No MIGRATION.867098 3334 Information not available 09/10/2022 Do you or have you ever used any other forms of tobacco or nicotine? No MIGRATION.822245 0241 Information not available 09/10/2022 What is your level of alcohol consumption? None MIGRATION.571194 9651 Information not available 09/10/2022 Are you able to walk? YESWOREST MIGRATION.061239 1797 Information not available 09/10/2022 Do you have difficulty doing errands alone? 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 [id number] MIGRATION.32090365 26 Information not available 09/10/2022 Do you have difficulty concentrating, remembering or making decisions? No MIGRATION.70256961 26 Information not available 09/10/2022 Family History Relationship Description Onset Age of this Age Resolved Age Notes LastModified by Organization Details LastModified Time Mother Carcinoma of colon 88 MIGRATION.268 [id number] Not available 09/10/2022 06:55:47 Father Essential hypertension 74 MIGRATION.530 3267889 Not available 09/10/2022 06:55:48 Father Pulmonary emphysema MIGRATION.755 7064444 Not available 09/10/2022 06:55:48 Sister Carcinoma of colon 50 MIGRATION.685 8971548 Not available 09/10/2022 06:55:48 Sister Aortic aneurysm 80 MIGRATION.734 1563420 Not available 09/10/2022 06:55:48 Medical History Condition Response BLINDNESS N NERVE DISEASE N RHEUMATIC FEVER N BLADDER PROBLEMS N KIDNEY STONES N MRSA N OTHER # 1 N POLIO N LUNG DISEASE/DISORDER N RADIATION / CHEMOTHERAPY N COPD N Other # 2 N BLOOD DISEASES N EAR OR HEARING PROBLEMS N MUMPS N DEPRESSION (INCLUDING POST ) N BOWEL PROBLEMS N STROKE/TIA N ULCERS N BENIGN PROSTATIC [...] HAVE YOU BEEN HOSPITALIZED OR SEEN IN TH E ER IN THE PAST YEAR ? N [...] Immunizations Vaccine Type Date Status Note Provider [facility] karla and Address Organization Details Recorded Time Influenza, high-dose, quadrivalent, PF 06/16/2023 completed Kingsley Anderson MD [address] [facility], [place], [address], [facility] [employer] [facility] 06/19/2023 22:02:46 COVID-19, mRNA, LNP-S, PF, 30 mcg/0.3 mL dose 05/04/2021 completed Not Available [facility] 4 19:17:53 COVID-19, mRNA, LNP-S, PF, 30 mcg/0.3 mL dose 10/05/2020 completed Not Available [facility] 4 19:17:53 COVID-19, mRNA, LNP-S, PF, 30 mcg/0.3 mL dose 09/07/2020 completed Not Available [facility] 4 19:17:53 Past Encounters Encounter ID Performer Location Encounter Start Date Encounter Closed Date Diagnosis/Indication Diagnosis SNOMED-CT Code Diagnosis ICD10 Code Diagnosis Note [id number] Kingsley Anderson MD [facility] Internal Med [facility] [address] [facility] [address] [place] [address] 01/09/2021 00:00:00 01/14/2021 17:39:43 [id number] Kingsley Anderson MD [facility] Internal Med [address] [facility] 15 [place] [address] 06/19/2021 00:00:00 06/30/2021 12:54:12 [id number] Kingsley Anderson MD [facility] Internal Med [facility] [address] [place] [address] [address] [address] 12/18/2021 00:00:00 12/18/2021 21:19:52 [id number] Kingsley Anderson MD [facility] Internal Med [facility] [address] [place] [address] [place] [address] 03/31/2022 00:00:00 03/31/2022 23:31:48 [id number] Kingsley Anderson MD [facility] Internal Med [facility] [address] [place] [address] Felixe., [address] [address] 04/23/2022 00:00:00 04/27/2022 23:32:54 [id number] Kingsley Anderson MD [facility] Internal Med [facility] [address] [place] [address] Saray., [address] [address] 09/19/2022 09:30:22 09/19/2022 10:19:44 Essential hypertension 20546704 I10 Vitamin D below reference range 094282053 E55.9 Hyperlipidemia 30803179 E78.5 [id number] Kingsley Anderson MD [facility] Internal Med [facility] [address] [place] [address] Felixe., [address] [address] 01/23/2023 09:27:08 01/23/2023 09:50:23 Essential hypertension 83927150 I10 History of malignant neoplasm of colon 495685598 Z85.038 Gastroesop hageal reflux disease without esophagitis 160852450 K21.9 Hyperlipidemia 61541151 E78.5 [id number] Kingsley Anderson MD [facility] Internal Med [facility] [address] [place] [address] Felixe., [address] [address] 06/16/2023 09:40:41 06/16/2023 10:43:58 Administration of influenza vaccine 48256527 Z23 Essential hypertension 17982980 I10 Gastroesop hageal reflux disease without esophagitis 968997833 K21.9 Hyperlipidemia 55735998 E78.5 Health Concerns Section Related Observation LastModified by Organization Detai ls LastModified Time None Recorded Concern Status LastModified by Organization Details LastModified Time None Recorded Advance Directives Directive N: pt declined info Payers Encounter Date Sequence Insurance Name Policy Number Policy Ying Covered Member ID Ying Member ID Guarantor Name 09/19/2022 1 [place] Lorna Dowdy [id number] Lorna Dowdy 09/19/2022 2 [id number] Lorna Dowdy [id number] Lorna Dowdy 01/23/2023 1 [place] Lorna Dowdy [id number] Lorna Dowdy 01/23/2023 2 [id number] Lorna Dowdy [id number] Lorna Dowdy 06/16/2023 1 [place] Lorna Dowdy [id number] Lorna Dowdy 06/16/2023 2 [id number] Lorna Dowdy [id number] Lorna Dowdy Notes Date Note Type Note Provider Name and Address Organization Details Recorded Time 09/19/2022 text/html Hypertension no headache no dizziness. Low vitamin-D level needs to be checked dyslipidemia tries to follow low-fat diet. Elevated liver enzymes will recheck she is asymptomatic Kingsley Anderson MD [address] [place], [address], [employer] [facility] [facility] 09/19/2022 10:35:47 01/23/2023 text/html GERD doing fine hypertension no headache no dizziness dyslipidemia does try to follow low-fat diet history of colon polyps needs a scope Kingsley Anderson MD [address], [place], [address], [employer] 01/24/2023 15:04:46 06/16/2023 text/html GERD doing fine hypertension no headache no dizziness dyslipidemia does try to follow low-fat diet history of colon polyps needs a scope Kingsley Anderson MD [address], [place], [address], [employer] 06/19/2023 22:04:09 OBGyn Episode No OBEpisode recorded.
[2024-11-22 10:17] LABS: Hematocrit 37.8 % (37.0-47.0); Hemoglobin 12.2 g/dL (12.0-15.0); Mean Corpuscular HGB Conc 32.3 g/dl (32-36); Mean Corpuscular Volume 92.9 fl (80-100); Mean Platelet Volume 9.9 fl (7.4-10.4); Platelet Count Result 259 k/mm3 (150-375); Red Blood Count 4.07 M/mm3 (4.2-5.4); White Blood Count 8.2 K/mm3 (4.5-10.0)
[2024-11-22 10:31] LABS: Albumin Level 4.2 g/dL (3.5-5.1); Anion Gap 5 mmol/L (4-12); Blood Urea Nitrogen 12 mg/dL (7-17); Calcium 9.2 mg/dL (8.4-10.2); Carbon Dioxide 25 mmol/L (22-30); Chloride 110 mmol/L (98-107); Creatine Kinase 31 U/L (30-135); Estimated Glomerular Filt Rate > 60; Glucose 112 mg/dL (65-110); Magnesium 2.1 mg/dL (1.6-2.3); Potassium 4.4 mmol/L (3.4-5.0); Sodium 140 mmol/L (137-145)
[2024-11-22 10:37] LABS: Complement C3 129 mg/dL (88-165)
[2024-11-22 10:41] LABS: Parathyroid Intact 49.2 pg/mL (14.5-75.2)
[2024-11-22 10:42] LABS: Potassium Urine Random 87.2 meq/L
[2024-11-22 10:44] LABS: Creatinine Urine 95.8 mg/dL; Total Protein Urine Random 7 mg/dL; Ur Ttl Prot Creatinine Ratio 0.07 mg/mg (0-0.20)
[2024-11-22 10:46] LABS: Erythrocyte Sedimentation Rate 20 mm/hr (0-20)
[2024-11-22 11:55] LABS: Add Urine Microscopic? NO; Appearance Urine Clear (Clear); Bilirubin Urine Negative (Negative); Blood Urine Negative (Negative); Color Urine Yellow (Yellow); Glucose Urine UA Negative (Negative); Ketones Urine Negative (Negative); Leukocyte Esterase Ur Negative LEU/UL (Negative); Nitrate Urine Negative (Negative); Protein Urine Negative (Negative); Specific Grav Ur 1.014 (1.001-1.035); Urobilinogen Urine 0.2 mg/dL (<2.0); pH Urine 7.5 (5.0-9.0)
[2024-11-23 11:43] LABS: Kappa\\Lambda Light Chains 1.18 (0.26-1.65); Lambda Light Chain 12.6 mg/L (5.7-26.3)
[2024-11-23 13:14] LABS: Complement Total CH50 >60 U/mL (31-60)
[2024-11-24 15:38] LABS: Anti Nuclear Antibody Pattern Nuclear, Speckled; Anti Nuclear Antibody Titer 1:40 titer
[2024-11-24 23:03] LABS: Immunofixation, Serum Normal pattern.
== END 2024-11-22 09:37 | disposition home or self-care (01) ==
PROVIDERS: PCP Internal Medicine; Visit Provider Internal Medicine Nephrology
DX: E87.6 Hypokalemia (principal); I10 Essential (primary) hypertension; E83.42 Hypomagnesemia
CPT/HCPCS: 36415; 80069; 81003; 82550; 82570; 83735; 83883; 83970; 84133; 84156; 85027; 85652; 86038; 86039; 86160; 86162; 86334

== ENCOUNTER 2024-12-06 07:25 | Outpatient (CLI) | payer MEDICARE, SELFPAY ==
--- OUTSIDE RECORDS SUMMARY | 2024-12-06 07:29 | XMS_ITS | Clinical Summary ---
Author Organization Anyone Home [facility] Address [address] [place] [address] Care Team Providers Care Mobile Developer Name Role Phone Kingsley Anderson MD Primary Care Provider [phone] Allergies Active Allergy Reactions Criticality Noted Date [...] Comments Blood Pressure 139/86 06/15/2019 5:57 PM [employer] Pulse 77 06/15/2019 5:57 PM [employer] Temperature 36.7 C (98.1 F) 06/15/2019 5:57 PM [employer] Respiratory Rate 18 06/15/2019 5:57 PM [employer] Oxygen Saturation 94% 06/15/2019 5:57 PM [employer] Inhaled Oxygen Concentration - - Weight 85.3 kg (188 lb) 06/15/2019 5:57 PM [employer] Height 157.5 cm (5' 2) 06/15/2019 5:57 PM [employer] Body Mass Index 34.39 06/15/2019 5:57 PM [employer] Plan of Treatment Health Maintenance Due Date [...] A AND B [employer] SUPP Care Teams Mobile Developer Relationship Specialty Start Date End Date Kingsley Anderson MD [address] [place] [phone] PCP - General Internal Medicine 06/15/19
--- OUTSIDE RECORDS SUMMARY | 2024-12-06 07:29 | XMS_ITS | Data Portability ---
Author Organization FRANKY Shanna ANNA Address [address] [place] [address] FRANKY Otero [id number] Care Team Providers Care Autocad Operator Name Role Phone SOPHIE ANDERSON Primary Care [...] some hypertensive readings at home she says [email or web address] Not available 02/09/2024 22:14:29 03/11/2024 03/11/2024 Increase the Coreg to 12.5 b.i.d. dyslipidemia rosuvastatin GERD pantoprazole and conservative measures rhinitis loratadine we will also continue her lisinopril and her furosemide. Using her famotidine as well see me back in 3 months [email or web address] Not available 03/12/2024 13:12:51 06/08/2024 06/08/2024 Says that she is getting her mammograms at [facility]. Blood pressure is controlled CBC CMP lipid colonoscopy 2024 follow up 4 months [email or web address] Not available 06/11/2024 13:44:55 10/25/2024 10/25/2024 No orthostatic symptoms treat empirically with doxycycline for a week and she will call if not improved [email or web address] Not available 10/25/2024 21:59:33 11/02/2024 11/02/2024 We will continue current therapy most recent blood work has been reviewed she will see me back in 4 months her sinus infection has resolved [email or web address] Not available 11/06/2024 21:25:22 Plan of Treatment Reminders Order Date Submit Date Provider Last Modified By Organization Details Last Modified Time Details Appointments ANY 15 2024 09:00A Yoli Anderson MD Not available Not available Not available Lab lipid panel, serum 2023 024 [facility], [address], [place], [address], 06/09/2024 07:14:23 CMP, serum or plasma 2023 024 [facility], [address], [place], [address], 06/09/2024 07:14:24 CBC w/ auto diff 2023 024 [facility], [address], [place], [address], 06/09/2024 07:14:25 CBC w/ auto diff 2023 024 [facility], [address], [place], [address], 01/02/2024 07:15:29 CMP, serum or plasma 2023 024 [facility], [address], [place], [address], 01/02/2024 07:15:29 BNP (B-type natriuret ic peptide), serum or plasma 2023 024 [email or web address] [facility], [address], [place], [address], 01/03/2024 11:24:36 Referral None recorded. Procedures None recorded. Surgeries None recorded. Imaging US, echocardi ogram 2023 024 [facility] [address], [place], [address], 01/29/2024 11:39:25 Medication Orders doxycycli ne hyclate 100 mg tablet 2024 025 [id number], [address], [place], [place], [id number], 10/25/2024 16:31:33 Coreg 12.5 mg tablet 2023 024 [email or web address] [facility] #[id number], [address], [place], [place], [id number], 03/11/2024 12:25:22 Patient TargetsNo targets recorded. Patient Instructions Encounter Date Encounter Id Patient Instructions Last Modified By Organization Details Last Modified Time 12/31/2023 [id number] A healthy lifestyle: care instructions [email or web address] Not available 12/31/2023 21:11:44 06/08/2024 [id number] A healthy lifestyle: care instructions [email or web address] Not available 06/08/2024 12:16:08 10/25/2024 [id number] A healthy lifestyle: care instructions Not available 10/25/2024 16:31:33 11/02/2024 [id number] A healthy lifestyle: care instructions [email or web address] Not available 11/02/2024 14:27:34 Reason for Referral None Reported. Results Created Date Observation Date Name Description Value Unit Range Abnormal Flag Note LastModifiedBy Organization Detail LastModifiedTime 01/01/20 24 01/02/2024 COMP. METAB OLIC PANEL (14) glucose 121 mg/dL 70-99 above high normal Not Available [facility] ([facility]) [address] [place], [address], 01/02/2024 07:15:29 01/01/20 24 01/02/2024 COMP. METAB OLIC PANEL (14) BUN 9 mg/dL 8-27 Not Available [facility] ([facility]) [address] [place], [address], 01/02/2024 07:15:29 01/01/20 24 01/02/2024 COMP. METAB OLIC PANEL (14) creatinine 0.88 mg/dL 0.57-1 .00 Not Available [facility] ([facility]) [address] [place], [address], 01/02/2024 07:15:29 01/01/20 24 01/02/2024 COMP. METAB OLIC PANEL (14) eGFR 69 mL/mi n/1.7 3 >59 Not Available [facility] ([facility]) [address] [place], [address], 01/02/2024 07:15:29 01/01/20 24 01/02/2024 COMP. METAB OLIC PANEL (14) BUN/creatini ne ratio 10 12-28 below low normal Not Available [facility] ([facility]) [address] [place], [address], 01/02/2024 07:15:29 01/01/20 24 01/02/2024 COMP. METAB OLIC PANEL (14) sodium 141 mmol/ L 134-14 4 Not Available [facility] ([facility]) [address] [place], [address], 01/02/2024 07:15:29 01/01/20 24 01/02/2024 COMP. METAB OLIC PANEL (14) potassium 3.9 mmol/ L 3.5-5. 2 Not Available [facility] ([facility]) [address] [place], [address], 01/02/2024 07:15:29 01/01/20 24 01/02/2024 COMP. METAB OLIC PANEL (14) chloride 105 mmol/ L 96-106 Not Available [facility] ([place] [facility]) [address] [place], [address], 01/02/2024 07:15:29 01/01/20 24 01/02/2024 COMP. METAB OLIC PANEL (14) carbon dioxide, total 23 mmol/ L 20-29 Not Available [facility] ([place] [facility]) [address] [place], [address], 01/02/2024 07:15:29 01/01/20 24 01/02/2024 COMP. METAB OLIC PANEL (14) calcium 9.1 mg/dL 8.7-10 .3 Not Available [facility] ([facility]) [address], [place], [address], 01/02/2024 07:15:29 01/01/20 24 01/02/2024 COMP. METAB OLIC PANEL (14) protein, total 6.2 g/dL 6.0-8. 5 Not Available [facility] ([facility]) [address] [facility], [place], [address], 01/02/2024 07:15:29 01/01/20 24 01/02/2024 COMP. METAB OLIC PANEL (14) albumin 4.2 g/dL 3.8-4. 8 Not Available [facility] ([facility]) [address] [facility], [place], [address], 01/02/2024 07:15:29 01/01/20 24 01/02/2024 COMP. METAB OLIC PANEL (14) globulin, total 2.0 g/dL 1.5-4. 5 Not Available [facility] ([facility]) [address] [facility], [place], [address], 01/02/2024 07:15:29 01/01/20 24 01/02/2024 COMP. METAB OLIC PANEL (14) bilirubin, total 0.3 mg/dL 0.0-1. 2 Not Available [facility] ([facility]) [address] [facility], [address], 01/02/2024 07:15:29 01/01/20 24 01/02/2024 COMP. METAB OLIC PANEL (14) alkaline phosphatase 68 IU/L 44-121 Not Available [facility] ([facility]) [address] [facility], [place], [address], 01/02/2024 07:15:29 01/01/20 24 01/02/2024 COMP. METAB OLIC PANEL (14) AST (SGOT) 24 IU/L 0-40 Not Available [facility] ([facility]) [address] [facility] [place], [address], 01/02/2024 07:15:29 01/01/20 24 01/02/2024 COMP. METAB OLIC PANEL (14) ALT (SGPT) 27 IU/L 0-32 Not Available [facility] ([facility]) [address] [facility] [place], [address], 01/02/2024 07:15:29 01/01/20 24 01/02/2024 CBC WITH DIFFE RENTI AL/PL ATELE T WBC 7.2 x10e3 /uL 3.4-10 .8 Not Available [facility] ([facility]) [address] [facility] [place], [address], 01/02/2024 07:15:29 01/01/20 24 01/02/2024 CBC WITH DIFFE RENTI AL/PL ATELE T RBC 4.30 x10e6 /uL 3.77-5 .28 Not Available [facility] ([facility]) [address] [facility] [place], [address], 01/02/2024 07:15:29 01/01/20 24 01/02/2024 CBC WITH DIFFE RENTI AL/PL ATELE T hemoglobin 13.0 g/dL 11.1-1 5.9 Not Available [facility] ([facility]) [address] [facility] [place], [address], 01/02/2024 07:15:29 01/01/20 24 01/02/2024 CBC WITH DIFFE RENTI AL/PL ATELE T hematocrit 39.1 % 34.0-4 6.6 Not Available [facility] ([facility]) [address] [facility] [place], [address], 01/02/2024 07:15:29 01/01/20 24 01/02/2024 CBC WITH DIFFE RENTI AL/PL ATELE T MCV 91 fL 79-97 Not Available [facility] ([facility]) [address] [place], [address], 01/02/2024 07:15:29 01/01/20 24 01/02/2024 CBC WITH DIFFE RENTI AL/PL ATELE T MCH 30.2 pg 26.6-3 3.0 Not Available [facility] ([facility]) [address] [facility], [place], [address], 01/02/2024 07:15:29 01/01/20 24 01/02/2024 CBC WITH DIFFE RENTI AL/PL ATELE T MCHC 33.2 g/dL 31.5-3 5.7 Not Available [facility] ([facility]) [address] [place], [address], 01/02/2024 07:15:29 01/01/20 24 01/02/2024 CBC WITH DIFFE RENTI AL/PL ATELE T RDW 12.8 % 11.7-1 5.4 Not Available [facility] ([facility]) [address] [place], [address], 01/02/2024 07:15:29 01/01/20 24 01/02/2024 CBC WITH DIFFE RENTI AL/PL ATELE T platelets 250 x10e3 /uL 150-45 0 Not Available [facility] ([facility]) [address] [place], [address], 01/02/2024 07:15:29 01/01/20 24 01/02/2024 CBC WITH DIFFE RENTI AL/PL ATELE T neutrophils 63 % notest ab. Not Available [facility] ([facility]) [address] [place], [address], 01/02/2024 07:15:29 01/01/20 24 01/02/2024 CBC WITH DIFFE RENTI AL/PL ATELE T lymphs 30 % notest ab. Not Available [facility] ([facility]) [address] [facility], [place], [address], 01/02/2024 07:15:29 01/01/20 24 01/02/2024 CBC WITH DIFFE RENTI AL/PL ATELE T monocytes 5 % notest ab. Not Available [facility] ([facility]) [address] [facility], [place], [address], 01/02/2024 07:15:29 01/01/20 24 01/02/2024 CBC WITH DIFFE RENTI AL/PL ATELE T eos 1 % notest ab. Not Available [facility] ([facility]) [address] [facility], [place], [address], 01/02/2024 07:15:29 01/01/20 24 01/02/2024 CBC WITH DIFFE RENTI AL/PL ATELE T basos 1 % notest ab. Not Available [facility] ([facility]) [address] [facility], [place], [address], 01/02/2024 07:15:29 01/01/20 24 01/02/2024 CBC WITH DIFFE RENTI AL/PL ATELE T neutrophils (absolute) 4.5 x10e3 /uL 1.4-7. 0 Not Available [facility] ([facility]) [address] [facility], [place], [address], 01/02/2024 07:15:29 01/01/20 24 01/02/2024 CBC WITH DIFFE RENTI AL/PL ATELE T lymphs (absolute) 2.1 x10e3 /uL 0.7-3. 1 Not Available [facility] ([facility]) [address] [facility], [place], [address], 01/02/2024 07:15:29 01/01/20 24 01/02/2024 CBC WITH DIFFE RENTI AL/PL ATELE T monocytes(ab solute) 0.4 x10e3 /uL 0.1-0. 9 Not Available [facility] ([facility]) [address] [facility], [place], [address], 01/02/2024 07:15:29 01/01/20 24 01/02/2024 CBC WITH DIFFE RENTI AL/PL ATELE T eos (absolute) 0.1 x10e3 /uL 0.0-0. 4 Not Available [facility] ([facility]) [address] [facility], [place], [address], 01/02/2024 07:15:29 01/01/20 24 01/02/2024 CBC WITH DIFFE RENTI AL/PL ATELE T baso (absolute) 0.1 x10e3 /uL 0.0-0. 2 Not Available [facility] ([facility]) [address] [place], [address], 01/02/2024 07:15:29 01/01/20 24 01/02/2024 CBC WITH DIFFE RENTI AL/PL ATELE T immature granulocytes 0 % notest ab. Not Available [facility] ([facility]) [address] [place], [address], 01/02/2024 07:15:29 01/01/20 24 01/02/2024 CBC WITH DIFFE RENTI AL/PL ATELE T immature grans (abs) 0.0 x10e3 /uL 0.0-0. 1 Not Available [facility] ([facility]) [address] [place], [address], 01/02/2024 07:15:29 01/01/20 24 01/02/2024 B-TYP E NATRI URETI C PEPTI DE B-type natriuretic peptide 15.0 pg/mL 0.0-10 0.0 Sieme ns ADVIA [facility] XP metho dolog y Not Available [facility] ([facility]) [address] [place], [address], 01/02/2024 09:19:42 06/08/20 24 06/09/2024 LIPID PANEL cholesterol, total 152 mg/dL 100-19 9 Not Available [facility] ([facility]) [address] [place], [address], 06/09/2024 07:14:23 06/08/20 24 06/09/2024 LIPID PANEL triglyceride s 98 mg/dL 0-149 Not Available [facility] ([facility]) [address] [place], [address], 06/09/2024 07:14:23 06/08/20 24 06/09/2024 LIPID PANEL HDL cholesterol 61 mg/dL >39 Not Available [facility] ([facility]) [address] [place], [address], 06/09/2024 07:14:23 06/08/20 24 06/09/2024 LIPID PANEL VLDL cholesterol willy 18 mg/dL 5-40 Not Available [facility] ([facility]) [address] [place], [address], 06/09/2024 07:14:23 06/08/20 24 06/09/2024 LIPID PANEL LDL chol calc ([facility]) 73 mg/dL 0-99 Not Available [facility] ([facility]) [address] [place], [address], 06/09/2024 07:14:23 06/08/20 24 06/09/2024 COMP. METAB OLIC PANEL (14) glucose 132 mg/dL 70-99 above high normal Not Available [facility] ([facility]) [address] [place], [address], 06/09/2024 07:14:24 06/08/20 24 06/09/2024 COMP. METAB OLIC PANEL (14) BUN 8 mg/dL 8-27 Not Available [facility] ([facility]) [address] [place], [address], 06/09/2024 07:14:24 06/08/20 24 06/09/2024 COMP. METAB OLIC PANEL (14) creatinine 0.83 mg/dL 0.57-1 .00 Not Available [facility] ([facility]) [address] [place], [address], 06/09/2024 07:14:24 06/08/20 24 06/09/2024 COMP. METAB OLIC PANEL (14) eGFR 74 mL/mi n/1.7 3 >59 Not Available [facility] ([facility]) [address] [place], [address], 06/09/2024 07:14:24 06/08/20 24 06/09/2024 COMP. METAB OLIC PANEL (14) BUN/creatini ne ratio 10 -28 below low normal Not Available [facility] ([facility]) [address] [place], [address], 06/09/2024 07:14:24 06/08/20 24 06/09/2024 COMP. METAB OLIC PANEL (14) sodium 145 mmol/ L 134-14 4 above high normal Not Available [facility] ([facility]) [address] [place], [address], 06/09/2024 07:14:24 06/08/20 24 06/09/2024 COMP. METAB OLIC PANEL (14) potassium 3.3 mmol/ L 3.5-5. 2 below low normal Not Available [facility] ([facility]) [address] [place], [address], 06/09/2024 07:14:24 06/08/20 24 06/09/2024 COMP. METAB OLIC PANEL (14) chloride 101 mmol/ L 96-106 Not Available [facility] ([facility]) [address] [place], [address], 06/09/2024 07:14:24 06/08/20 24 06/09/2024 COMP. METAB OLIC PANEL (14) carbon dioxide, total 27 mmol/ L Not Available [facility] ([facility]) [address] [place], [address], 06/09/2024 07:14:24 06/08/20 24 06/09/2024 COMP. METAB OLIC PANEL (14) calcium 9.3 mg/dL 8.7-10 .3 Not Available [facility] ([facility]) [address] [place], [address], 06/09/2024 07:14:24 06/08/2006/09/2024 COMP. METAB OLIC PANEL (14) protein, total 6.6 g/dL 6.0-8. 5 Not Available [facility] ([facility]) [address] [place], [address], 06/09/2024 07:14:24 06/08/20 24 06/09/2024 COMP. METAB OLIC PANEL (14) albumin 4.4 g/dL 3.8-4. 8 Not Available [facility] ([facility]) [address] [place], [address], 06/09/2024 07:14:24 06/08/20 24 06/09/2024 COMP. METAB OLIC PANEL (14) globulin, total 2.2 g/dL 1.5-4. 5 Not Available [facility] ([facility]) [address] [place], [address], 06/09/2024 07:14:24 06/08/20 24 06/09/2024 COMP. METAB OLIC PANEL (14) bilirubin, total 0.5 mg/dL 0.0-1. 2 Not Available [facility] ([facility]) [address] [facility] [place], [address], 06/09/2024 07:14:24 06/08/20 24 06/09/2024 COMP. METAB OLIC PANEL (14) alkaline phosphatase 80 IU/L 44-121 Not Available [facility] ([facility]) [address] [place], [address], 06/09/2024 07:14:24 06/08/20 24 06/09/2024 COMP. METAB OLIC PANEL (14) AST (SGOT) 20 IU/L 0-40 Not Available [facility] ([facility]) [address] [place], [address], 06/09/2024 07:14:24 06/08/20 24 06/09/2024 COMP. METAB OLIC PANEL (14) ALT (SGPT) 22 IU/L 0-32 Not Available [facility] ([facility]) [address] [place], [address], 06/09/2024 07:14:24 06/08/20 24 06/09/2024 CBC WITH DIFFE RENTI AL/PL ATELE T WBC 8.3 x10e3 /uL 3.4-10 .8 Eff ectiv e Decem fantasma 2023 profi jem [id number] 5 WBC will be made* * non-o rdera ble as a stand -branden e order code. Not Available [facility] ([facility]) [address] [place], [address], 06/09/2024 07:14:25 06/08/20 24 06/09/2024 CBC WITH DIFFE RENTI AL/PL ATELE T RBC 4.65 x10e6 /uL 3.77-5 .28 Not Available [facility] ([facility]) [address] [place], [address], 06/09/2024 07:14:25 06/08/20 24 06/09/2024 CBC WITH DIFFE RENTI AL/PL ATELE T hemoglobin 13.7 g/dL 11.1-1 5.9 Not Available [facility] ([facility]) [address] [place], [address], 06/09/2024 07:14:25 06/08/20 24 06/09/2024 CBC WITH DIFFE RENTI AL/PL ATELE T hematocrit 42.0 % 34.0-4 6.6 Not Available [facility] ([facility]) [address] [facility], [place], [address], 06/09/2024 07:14:25 06/08/20 24 06/09/2024 CBC WITH DIFFE RENTI AL/PL ATELE T MCV 90 fL 79-97 Not Available [facility] ([facility]) [address] [facility], [place], [address], 06/09/2024 07:14:25 06/08/20 24 06/09/2024 CBC WITH DIFFE RENTI AL/PL ATELE T MCH 29.5 pg 26.6-3 3.0 Not Available [facility] ([facility]) [address] [facility] [place], [address], 06/09/2024 07:14:25 06/08/20 24 06/09/2024 CBC WITH DIFFE RENTI AL/PL ATELE T MCHC 32.6 g/dL 31.5-3 5.7 Not Available [facility] ([facility]) [address] [place], [address], 06/09/2024 07:14:25 06/08/20 24 06/09/2024 CBC WITH DIFFE RENTI AL/PL ATELE T RDW 12.5 % 11.7-1 5.4 Not Available [facility] ([facility]) [address] [place], [address], 06/09/2024 07:14:25 06/08/20 24 06/09/2024 CBC WITH DIFFE RENTI AL/PL ATELE T platelets 312 x10e3 /uL 150-45 0 Not Available [facility] ([facility]) [address] [place], [address], 06/09/2024 07:14:25 06/08/20 24 06/09/2024 CBC WITH DIFFE RENTI AL/PL ATELE T neutrophils 65 % notest ab. Not Available [facility] ([facility]) [address] [facility], [place], [address], 06/09/2024 07:14:25 06/08/20 24 06/09/2024 CBC WITH DIFFE RENTI AL/PL ATELE T lymphs 28 % notest ab. Not Available [facility] ([facility]) [address] [facility], [place], [address], 06/09/2024 07:14:25 06/08/20 24 06/09/2024 CBC WITH DIFFE RENTI AL/PL ATELE T monocytes 5 % notest ab. Not Available [facility] ([facility]) [address] [facility] [place], [address], 06/09/2024 07:14:25 06/08/20 24 06/09/2024 CBC WITH DIFFE RENTI AL/PL ATELE T eos 1 % notest ab. Not Available [facility] ([facility]) [address] [facility], [place], [address], 06/09/2024 07:14:25 06/08/20 24 06/09/2024 CBC WITH DIFFE RENTI AL/PL ATELE T basos 1 % notest ab. Not Available [facility] ([facility]) [address] [facility] [place], [address], 06/09/2024 07:14:25 06/08/20 24 06/09/2024 CBC WITH DIFFE RENTI AL/PL ATELE T neutrophils (absolute) 5.4 x10e3 /uL 1.4-7. 0 Not Available [facility] ([facility]) [address] [facility] [place], [address], 06/09/2024 07:14:25 06/08/20 24 06/09/2024 CBC WITH DIFFE RENTI AL/PL ATELE T lymphs (absolute) 2.3 x10e3 /uL 0.7-3. 1 Not Available [facility] ([facility]) [address] [facility] [place], [address], 06/09/2024 07:14:25 06/08/20 24 06/09/2024 CBC WITH DIFFE RENTI AL/PL ATELE T monocytes(ab solute) 0.4 x10e3 /uL 0.1-0. 9 Not Available [facility] ([facility]) [address] [facility] [place], [address], 06/09/2024 07:14:25 06/08/20 24 06/09/2024 CBC WITH DIFFE RENTI AL/PL ATELE T eos (absolute) 0.1 x10e3 /uL 0.0-0. 4 Not Available [facility] ([facility]) [address] [facility] [place], [address], 06/09/2024 07:14:25 06/08/20 24 06/09/2024 CBC WITH DIFFE RENTI AL/PL ATELE T baso (absolute) 0.1 x10e3 /uL 0.0-0. 2 Not Available [facility] ([facility]) [address] [place], [address], 06/09/2024 07:14:25 06/08/20 24 06/09/2024 CBC WITH DIFFE RENTI AL/PL ATELE T immature granulocytes 0 % notest ab. Not Available [facility] ([facility]) [address] [place], [address], 06/09/2024 07:14:25 06/08/20 24 06/09/2024 CBC WITH DIFFE RENTI AL/PL ATELE T immature grans (abs) 0.0 x10e3 /uL 0.0-0. 1 Not Available [facility] ([facility]) [address] [place], [address], 06/09/2024 07:14:25 07/11/20 24 07/12/2024 BASIC METAB OLIC PANEL (8) glucose 136 mg/dL 70-99 above high normal Not Available [facility] ([facility]) [address] [facility] [place], [address], 07/12/2024 08:20:41 07/11/20 24 07/12/2024 BASIC METAB OLIC PANEL (8) BUN 11 mg/dL 8-27 Not Available [facility] ([facility]) [address] [place], [address], 07/12/2024 08:20:41 07/11/20 24 07/12/2024 BASIC METAB OLIC PANEL (8) creatinine 0.94 mg/dL 0.57-1 .00 Not Available [facility] ([facility]) [address] [place], [address], 07/12/2024 08:20:41 07/11/20 24 07/12/2024 BASIC METAB OLIC PANEL (8) eGFR 64 mL/mi n/1.7 3 >59 Not Available [facility] ([facility]) [address] [place], [address], 07/12/2024 08:20:41 07/11/20 24 07/12/2024 BASIC METAB OLIC PANEL (8) BUN/creatini ne ratio 07-09 Not Available [facility] ([facility]) [address] [place], [address], 07/12/2024 08:20:41 07/11/20 24 07/12/2024 BASIC METAB OLIC PANEL (8) sodium 143 mmol/ L 134-14 4 Not Available [facility] ([facility]) [address] [place], [address], 07/12/2024 08:20:41 07/11/20 24 07/12/2024 BASIC METAB OLIC PANEL (8) potassium 3.4 mmol/ L 3.5-5. 2 below low normal Not Available [facility] ([facility]) [address] [facility] [place], [address], 07/12/2024 08:20:41 07/11/20 24 07/12/2024 BASIC METAB OLIC PANEL (8) chloride 104 mmol/ L 96-106 Not Available [facility] ([facility]) [address] [facility] [place], [address], 07/12/2024 08:20:41 07/11/20 24 07/12/2024 BASIC METAB OLIC PANEL (8) carbon dioxide, total 25 mmol/ L 20-29 Not Available [facility] ([facility]) [address] [facility] [place], [address], 07/12/2024 08:20:41 07/11/20 24 07/12/2024 BASIC METAB OLIC PANEL (8) calcium 9.3 mg/dL 8.7-10 .3 Not Available [facility] ([facility]) [address] [facility] [place], [address], 07/12/2024 08:20:41 07/11/20 24 07/12/2024 HEMOG LOBIN A1C hemoglobin A1C 6.8 % 4.8-5. 6 above high normal Predi abete s: 5.7 - 6.4 Diabe lewis: >6.4 Glyce gabino contr ol for adult s with diabe lewis: <7.0 Not Available [facility] ([facility]) [address] [facility] [place], [address], 07/12/2024 08:20:42 07/11/2007/12/2024 MAGNE SIUM magnesium 2.0 mg/dL 1.6-2. 3 Not Available [facility] ([facility]) [address] [facility] [place], [address], 07/12/2024 08:20:43 07/28/19 25 07/29/2024 BASIC METAB OLIC PANEL (8) glucose 123 mg/dL 70-99 above high normal Not Available [facility] ([facility]) [address] [place], [address], 07/29/2024 09:13:31 07/28/19 25 07/29/2024 BASIC METAB OLIC PANEL (8) BUN 14 mg/dL 8-27 Not Available [facility] ([facility]) [address] [place], [address], 07/29/2024 09:13:31 07/28/19 25 07/29/2024 BASIC METAB OLIC PANEL (8) creatinine 1.22 mg/dL 0.57-1 .00 above high normal Not Available [facility] ([facility]) [address] [place], [address], 07/29/2024 09:13:31 07/28/19 25 07/29/2024 BASIC METAB OLIC PANEL (8) eGFR 47 mL/mi n/1.7 3 >59 below low normal Not Available [facility] ([facility]) [address] [place], [address], 07/29/2024 09:13:31 07/28/19 25 07/29/2024 BASIC METAB OLIC PANEL (8) BUN/creatini ne ratio 11 12-28 below low normal Not Available [facility] ([facility]) [address] [place], [address], 07/29/2024 09:13:31 07/28/19 25 07/29/2024 BASIC METAB OLIC PANEL (8) sodium 138 mmol/ L 134-14 4 Not Available [facility] ([facility]) [address] [place], [address], 07/29/2024 09:13:31 07/28/19 25 07/29/2024 BASIC METAB OLIC PANEL (8) potassium 4.9 mmol/ L 3.5-5. 2 Not Available [facility] ([facility]) [address] [facility], [address], 07/29/2024 09:13:31 07/28/19 25 07/29/2024 BASIC METAB OLIC PANEL (8) chloride 101 mmol/ L 96-106 Not Available [facility] ([facility]) [address] [facility], [address], 07/29/2024 09:13:31 07/28/19 25 07/29/2024 BASIC METAB OLIC PANEL (8) carbon dioxide, total 23 mmol/ L 20-29 Not Available [facility] ([facility]) [address] [facility], [address], 07/29/2024 09:13:31 07/28/19 25 07/29/2024 BASIC METAB OLIC PANEL (8) calcium 10.1 mg/dL 8.7-10 .3 Not Available [facility] ([facility]) [address] [facility] [place], [address], 07/29/2024 09:13:31 08/08/19 25 08/09/2024 COMP. METAB OLIC PANEL (14) glucose 124 mg/dL 70-99 above high normal Not Available [facility] ([facility]) [address] [facility] [place], [address], 08/09/2024 07:07:57 08/08/19 25 08/09/2024 COMP. METAB OLIC PANEL (14) BUN 29 mg/dL 8-27 above high normal Not Available [facility] ([facility]) [address] [facility] [place], [address], 08/09/2024 07:07:57 08/08/19 25 08/09/2024 COMP. METAB OLIC PANEL (14) creatinine 1.80 mg/dL 0.57-1 .00 above high normal Not Available [facility] ([facility]) [address] [facility] [place], [address], 08/09/2024 07:07:57 08/08/19 25 08/09/2024 COMP. METAB OLIC PANEL (14) eGFR 29 mL/mi n/1.7 3 >59 below low normal Not Available [facility] ([facility]) [address] [facility] [place], [address], 08/09/2024 07:07:57 08/08/19 25 08/09/2024 COMP. METAB OLIC PANEL (14) BUN/creatini ne ratio 16 12-28 Not Available [facility] ([facility]) [address] [facility] [place], [address], 08/09/2024 07:07:57 08/08/19 25 08/09/2024 COMP. METAB OLIC PANEL (14) sodium 137 mmol/ L 134-14 4 Not Available [facility] ([facility]) [address] [facility] [place], [address], 08/09/2024 07:07:57 08/08/19 25 08/09/2024 COMP. METAB OLIC PANEL (14) potassium 5.2 mmol/ L 3.5-5. 2 Not Available [facility] ([facility]) [address] [facility] [place], [address], 08/09/2024 07:07:57 08/08/19 25 08/09/2024 COMP. METAB OLIC PANEL (14) chloride 103 mmol/ L 96-106 Not Available [facility] ([facility]) [address] [facility] [place], [address], 08/09/2024 07:07:57 08/08/19 25 08/09/2024 COMP. METAB OLIC PANEL (14) carbon dioxide, total 23 mmol/ L 20-29 Not Available [facility] ([facility]) [address] [facility] [place], [address], 08/09/2024 07:07:57 08/08/19 25 08/09/2024 COMP. METAB OLIC PANEL (14) calcium 10.6 mg/dL 8.7-10 .3 above high normal Not Available [facility] ([facility]) [address] [facility] [place], [address], 08/09/2024 07:07:57 08/08/19 25 08/09/2024 COMP. METAB OLIC PANEL (14) protein, total 6.5 g/dL 6.0-8. 5 Not Available [facility] ([facility]) [address] [place], [address], 08/09/2024 07:07:57 08/08/19 25 08/09/2024 COMP. METAB OLIC PANEL (14) albumin 4.4 g/dL 3.8-4. 8 Not Available [facility] ([facility]) [address] [place], [address], 08/09/2024 07:07:57 08/08/19 25 08/09/2024 COMP. METAB OLIC PANEL (14) globulin, total 2.1 g/dL 1.5-4. 5 Not Available [facility] ([facility]) [address] [place], [address], 08/09/2024 07:07:57 08/08/19 25 08/09/2024 COMP. METAB OLIC PANEL (14) bilirubin, total 0.4 mg/dL 0.0-1. 2 Not Available [facility] ([facility]) [address] [place], [address], 08/09/2024 07:07:57 08/08/19 25 08/09/2024 COMP. METAB OLIC PANEL (14) alkaline phosphatase 71 IU/L 44-121 Not Available [facility] ([facility]) [address] [place], [address], 08/09/2024 07:07:57 08/08/19 25 08/09/2024 COMP. METAB OLIC PANEL (14) AST (SGOT) 17 IU/L 0-40 Not Available [facility] ([facility]) [address] [facility] [place], [address], 08/09/2024 07:07:57 08/08/19 25 08/09/2024 COMP. METAB OLIC PANEL (14) ALT (SGPT) 22 IU/L 0-32 Not Available [facility] ([facility]) [address] [facility] [place], [address], 08/09/2024 07:07:57 08/08/19 25 08/09/2024 MAGNE SIUM magnesium 2.2 mg/dL 1.6-2. 3 Not Available [facility] ([facility]) [address] [facility] [place], [address], 08/09/2024 07:07:58 08/08/19 25 08/08/2024 CBC WITH DIFFE RENTI AL/PL ATELE T WBC 8.4 x10e3 /uL 3.4-10 .8 Not Available [facility] ([facility]) [address] [facility] [place], [address], 08/09/2024 07:07:59 08/08/19 25 08/08/2024 CBC WITH DIFFE RENTI AL/PL ATELE T RBC 4.61 x10e6 /uL 3.77-5 .28 Not Available [facility] ([facility]) [address] [place], [address], 08/09/2024 07:07:59 08/08/19 25 08/08/2024 CBC WITH DIFFE RENTI AL/PL ATELE T hemoglobin 13.7 g/dL 11.1-1 5.9 Not Available [facility] ([facility]) [address] [place], [address], 08/09/2024 07:07:59 08/08/19 25 08/08/2024 CBC WITH DIFFE RENTI AL/PL ATELE T hematocrit 42.5 % 34.0-4 6.6 Not Available [facility] ([facility]) [address] [facility] [place], [address], 08/09/2024 07:07:59 08/08/19 25 08/08/2024 CBC WITH DIFFE RENTI AL/PL ATELE T MCV 92 fL 79-97 Not Available [facility] ([facility]) [address] [facility] [place], [address], 08/09/2024 07:07:59 08/08/19 25 08/08/2024 CBC WITH DIFFE RENTI AL/PL ATELE T MCH 29.7 pg 26.6-3 3.0 Not Available [facility] ([facility]) [address] [facility] [place], [address], 08/09/2024 07:07:59 08/08/19 25 08/08/2024 CBC WITH DIFFE RENTI AL/PL ATELE T MCHC 32.2 g/dL 31.5-3 5.7 Not Available [facility] ([facility]) [address] [facility] [place], [address], 08/09/2024 07:07:59 08/08/19 25 08/08/2024 CBC WITH DIFFE RENTI AL/PL ATELE T RDW 12.7 % 11.7-1 5.4 Not Available [facility] ([facility]) [address] [facility] [place], [address], 08/09/2024 07:07:59 08/08/19 25 08/08/2024 CBC WITH DIFFE RENTI AL/PL ATELE T platelets 324 x10e3 /uL 150-45 0 Not Available [facility] ([facility]) [address] [place], [address], 08/09/2024 07:07:59 08/08/19 25 08/08/2024 CBC WITH DIFFE RENTI AL/PL ATELE T neutrophils 57 % notest ab. Not Available [facility] ([facility]) [address] [facility] [place], [address], 08/09/2024 07:07:59 08/08/19 25 08/08/2024 CBC WITH DIFFE RENTI AL/PL ATELE T lymphs 33 % notest ab. Not Available [facility] ([facility]) [address] [facility] [place], [address], 08/09/2024 07:07:59 08/08/19 25 08/08/2024 CBC WITH DIFFE RENTI AL/PL ATELE T monocytes 7 % notest ab. Not Available [facility] ([facility]) [address] [facility] [place], [address], 08/09/2024 07:07:59 08/08/19 25 08/08/2024 CBC WITH DIFFE RENTI AL/PL ATELE T eos 2 % notest ab. Not Available [facility] ([facility]) [address] [facility] [place], [address], 08/09/2024 07:07:59 08/08/19 25 08/08/2024 CBC WITH DIFFE RENTI AL/PL ATELE T basos 1 % notest ab. Not Available [facility] ([facility]) [address] [place], [address], 08/09/2024 07:07:59 08/08/19 25 08/08/2024 CBC WITH DIFFE RENTI AL/PL ATELE T neutrophils (absolute) 4.8 x10e3 /uL 1.4-7. 0 Not Available [facility] ([facility]) [address] [place], [address], 08/09/2024 07:07:59 08/08/19 25 08/08/2024 CBC WITH DIFFE RENTI AL/PL ATELE T lymphs (absolute) 2.8 x10e3 /uL 0.7-3. 1 Not Available [facility] ([facility]) [address] [place], [address], 08/09/2024 07:07:59 08/08/19 25 08/08/2024 CBC WITH DIFFE RENTI AL/PL ATELE T monocytes(ab solute) 0.5 x10e3 /uL 0.1-0. 9 Not Available [facility] ([facility]) [address] [facility] [place], [address], 08/09/2024 07:07:59 08/08/19 25 08/08/2024 CBC WITH DIFFE RENTI AL/PL ATELE T eos (absolute) 0.2 x10e3 /uL 0.0-0. 4 Not Available [facility] ([facility]) [address] [facility] [place], [address], 08/09/2024 07:07:59 08/08/19 25 08/08/2024 CBC WITH DIFFE RENTI AL/PL ATELE T baso (absolute) 0.1 x10e3 /uL 0.0-0. 2 Not Available [facility] ([facility]) [address] [facility] [place], [address], 08/09/2024 07:07:59 08/08/19 25 08/08/2024 CBC WITH DIFFE RENTI AL/PL ATELE T immature granulocytes 0 % notest ab. Not Available [facility] ([facility]) [address] [facility] [place], [address], 08/09/2024 07:07:59 08/08/19 25 08/08/2024 CBC WITH DIFFE RENTI AL/PL ATELE T immature grans (abs) 0.0 x10e3 /uL 0.0-0. 1 Not Available [facility] ([facility]) [address] [place], [address], 08/09/2024 07:07:59 08/26/19 25 08/27/2024 COMP. METAB OLIC PANEL (14) glucose 103 mg/dL 70-99 above high normal Not Available [facility] ([facility]) [address] [place], [address], 08/27/2024 07:07:28 08/26/19 25 08/27/2024 COMP. METAB OLIC PANEL (14) BUN 24 mg/dL 8-27 Not Available [facility] ([facility]) [address] [place], [address], 08/27/2024 07:07:28 08/26/19 25 08/27/2024 COMP. METAB OLIC PANEL (14) creatinine 1.45 mg/dL 0.57-1 .00 above high normal Not Available [facility] ([facility]) [address] [place], [address], 08/27/2024 07:07:28 08/26/19 25 08/27/2024 COMP. METAB OLIC PANEL (14) eGFR 38 mL/mi n/1.7 3 >59 below low normal Not Available [facility] ([facility]) [address] [place], [address], 08/27/2024 07:07:28 08/26/19 25 08/27/2024 COMP. METAB OLIC PANEL (14) BUN/creatini ne ratio 17 12-28 Not Available [facility] ([facility]) [address] [facility], [address], 08/27/2024 07:07:28 08/26/19 25 08/27/2024 COMP. METAB OLIC PANEL (14) sodium 139 mmol/ L 134-14 4 Not Available [facility] ([facility]) [address] [facility], [address], 08/27/2024 07:07:28 08/26/19 25 08/27/2024 COMP. METAB OLIC PANEL (14) potassium 4.6 mmol/ L 3.5-5. 2 Not Available [facility] ([facility]) [address] [place], [address], 08/27/2024 07:07:28 08/26/19 25 08/27/2024 COMP. METAB OLIC PANEL (14) chloride 102 mmol/ L 96-106 Not Available [facility] ([facility]) [address] [facility] [place], [address], 08/27/2024 07:07:28 08/26/19 25 08/27/2024 COMP. METAB OLIC PANEL (14) carbon dioxide, total 25 mmol/ L 20-29 Not Available [facility] ([facility]) [address] [facility] [place], [address], 08/27/2024 07:07:28 08/26/19 25 08/27/2024 COMP. METAB OLIC PANEL (14) calcium 10.1 mg/dL 8.7-10 .3 Not Available [facility] ([facility]) [address] [facility] [place], [address], 08/27/2024 07:07:28 08/26/19 25 08/27/2024 COMP. METAB OLIC PANEL (14) protein, total 6.2 g/dL 6.0-8. 5 Not Available [facility] ([facility]) [address] [facility] [place], [address], 08/27/2024 07:07:28 08/26/19 25 08/27/2024 COMP. METAB OLIC PANEL (14) albumin 4.3 g/dL 3.8-4. 8 Not Available [facility] ([facility]) [address] [facility] [place], [address], 08/27/2024 07:07:28 08/26/19 25 08/27/2024 COMP. METAB OLIC PANEL (14) globulin, total 1.9 g/dL 1.5-4. 5 Not Available [facility] ([facility]) [address] [facility] [place], [address], 08/27/2024 07:07:28 02/14/20 25 08/27/2024 COMP. METAB OLIC PANEL (14) bilirubin, total 0.4 mg/dL 0.0-1. 2 Not Available [facility] ([facility]) [address] [facility] [place], [address], 08/27/2024 07:07:28 08/26/19 25 08/27/2024 COMP. METAB OLIC PANEL (14) alkaline phosphatase 69 IU/L 44-121 Not Available [facility] ([facility]) [address] [facility] [place], [address], 08/27/2024 07:07:28 08/26/19 25 08/27/2024 COMP. METAB OLIC PANEL (14) AST (SGOT) 16 IU/L 0-40 Not Available [facility] ([facility]) [address] [facility] [place], [address], 08/27/2024 07:07:28 08/26/19 25 08/27/2024 COMP. METAB OLIC PANEL (14) ALT (SGPT) 20 IU/L 0-32 Not Available [facility] ([facility]) [address] [facility] [place], [address], 08/27/2024 07:07:28 01/29/20 24 01/29/2024 US, [facility] ardio gram No observ ation record ed. [address], [address], 02/26/2024 12:12:26 10/29/19 25 10/28/2024 US, renal No observ ation record ed. [address], [address], 11/04/2024 11:27:49 10/29/19 25 10/28/2024 US, renal No observ ation record ed. [address] [address], [place], [address], 11/04/2024 11:27:50 Result Notes None recorded. Problems Name Problem SNOMED Code Status Onset Date Resolution Date Notes Provider Name and Address Organization Details Recorded Time Hyperlipidemia 90441315 Active 2023 Sophie Anderson MD Attn: Ernesto jacobson,[address] [facility], [place], [address], [place] - [facility] 4 22:23:09 Essential hypertension 10012660 Active 2023 Sophie Anderson MD Attn: Ernesto jacobson,[address] [facility], [place], [address] [facility] 4 22:23:24 Vitamin D below reference range 528434693 Active 2023 Sophie Anderson MD Attn: Ernesto jacobson,[address] [facility], [place], [address], [place] [facility] 4 22:24:12 Gastro-esophag eal reflux disease with esophagitis 817974084 Active 2023 Sophie Anderson MD Attn: Ernesto jacobson,[address] [facility], [place], [address], [place] [facility] 4 22:24:49 Edema of lower extremity 055873063 Active 2023 Katelin Delgado [place] null, [place] [facility] 4 17:30:46 Obesity 641060245 Active 2023 Katelin Delgado [place] null, [place] [facility] 4 17:30:49 Serum creatinine above reference range 849211372 Active 2024 Katelin Delgado [place] null, [place] [facility] 5 17:14:38 Problem Notes None recorded. Procedures Surgical History Date Name Laterality Status Provider Name and Address Organization Details Recorded Time renal lithotripsy completed Lila Harrington MD - [facility] 11/10/2023 09:53:34 Imaging Results None recorded. Procedure Notes None recorded. Medical Equipment None Reported. Allergies Allergen ID Allergen Name Allergen Category Reaction Reaction Severity Criticality Documentation Date Start Date Code Code System Note Provider Name and Address Organization Details Recorded Time 16680816 Product containin g penicilli n (product) medicatio n Not available Not available Not available 09/11/2023 66833 8001 SNOMED doesn 't remem fantasma react ion Lila Harrington null, MD - [facility] 4 09:49:22 698769 Cipro medicatio n vomiting Not available Not available 09/11/2023 63106 3 RxNorm Darius Arteaga MA null, MD - [facility] 4 10:28:26 [id number] erythromy ana medicatio n Not available Not available Not available 11/02/2024 4053 RxNorm Trinidad Sandoval GAYLE hue, MD - [facility] 5 10:38:57 328056 ciproflox acin medicatio n Not available Not available Not available 11/02/20242018 2551 RxNorm unrec ogniz ed react ion (text : Nause a and Vomit ing, code: 52046 000) (from [facility]) TrinidadGAYLE Amaro, MD [facility] 5 10:39:02 Medications Name Sig Start Date Stop Date [...] TAKE 1 TABLET BY MOUTH TWICE DAILY 2024 active Not Available Not Available Not Avai lable azithromy ana 250 mg tablet TAKE 2 [...] TAKE 1 TABLET BY MOUTH EVERY DAY 11/02 completed Not Available Not Available Not Available peg-elect rolyte solution 420 gram oral solution USE DIRECTED BY DOCTORS OFFICE 09/10 completed Not Available Not Available Not Available pantopraz ole 40 mg tablet,de layed release TAKE 1 TABLET BY MOUTH DAILY active Not Available Not Available No t Available lisinopri l 10 mg tablet TAKE 1 TABLET BY MOUTH TWICE DAILY 2024 active Not Available Not Available Not Avai lable promethaz ine 25 mg tablet TAKE 1/2 [...] lable doxycycli ne hyclate 100 mg tablet TAKE 1 TABLET BY MOUTH TWICE DAILY FOR 10 DAYS active Not Available Not Available No t Available loratadin e 10 mg tablet TAKE 1 TABLET BY MOUTH DAILY active Not Available Not Available No t Available naproxen 500 mg tablet TAKE 1 TABLET BY MOUTH EVERY 12 HOURS NEEDED 09/10 completed Not Available Not Available Not Available rosuvasta tin 10 mg tablet TAKE 1 TABLET BY MOUTH DAILY 2024 active Not Available Not Available Not Avai lable potassium chloride ER 20 mEq tablet,ex tended release TAKE 1 TABLET BY MOUTH EVERY DAY active Not Available Not Available No t Available Vitals Date Recorded Body height Body mass index (BMI) Body weight Heart rate Oxygen saturation Oxygen saturation in Arterial blood by Pulse oximetry Systolic And Diastolic Provider Name and Address Organization Details Last Updated DateTime 5 165.1 cm 29.4 kg/m2 79841.6 9 g 73 /min 96 % 96 % 122/68 mm[Hg] Agustina Parrish MA [facility] 5 14:07:19 Date Recorded Body height Body mass index (BMI) Body weight Heart rate Oxygen saturation Oxygen saturation in Arterial blood by Pulse oximetry Systolic And Diastolic Provider Name and Address Organization Details Last Updated DateTime 5 165.1 cm 29.4 kg/m2 25071.6 9 g 64 /min 95 % 95 % 108/68 mm[Hg] Trinidad Sandoval [facility] 5 10:38:45 Date Recorded Body height Body mass index (BMI) Body weight Heart rate Oxygen saturation Oxygen saturation in Arterial blood by Pulse oximetry Systolic And Diastolic Provider Name and Address Organization Details Last Updated DateTime 4 165.1 cm 31.9 kg/m2 86205.6 6 g 71 /min 97 % 97 % 132/70 mm[Hg] Agustina Parrish MA [facility] 4 16:42:51 Date Recorded Body height Body mass index (BMI) Body weight Heart rate Oxygen saturation Oxygen saturation in Arterial blood by Pulse oximetry Systolic And Diastolic Provider Name and Address Organization Details Last Updated DateTime 4 165.1 cm 31.6 kg/m2 69237.8 3 g 68 /min 95 % 95 % 160/78 mm[Hg] Trinidad [place] [facility] 4 09:59:59 Date Recorded Body height Body mass index (BMI) Body weight Heart rate Oxygen saturation Oxygen saturation in Arterial blood by Pulse oximetry Systolic And Diastolic Provider Name and Address Organization Details Last Updated DateTime 4 165.1 cm 31.2 kg/m2 52231.2 9 g 72 /min 96 % 96 % 138/70 mm[Hg] Agustina Parrish MA [facility] 09:43:33 Social History Question Answer Notes LastModified by Organizat ion Details LastModified Time Tobacco Smoking Status Never Smoker Darius Arteaga MA [facility], [place] - [facility] 09/11/2023 10:30:50 Do You Have An Advance Directive? Yes Information n ot available 11/10/2023 Are You Blind Or Do You Have Difficulty Seeing? No Information n ot available 09/11/2023 What Is Your Level Of Caffeine Consumption? Heavy Information not available 09/11/2023 In The 14 Days Before Symptom Onset, Have You Had Close Contact With A Laboratory-confirm ed COVID-19 While That Case Was Ill? No Information n ot available 12/31/2023 In The 14 Days Before Symptom Onset, Have You Had Close Contact With A Person Who Is Under Investigation For COVID-19 While That Person Was Ill? No Information not available 12/31/2023 Have You Been To An Area Known To Be High Risk For COVID-19? No Information not available 12/31/2023 Are You Deaf Or Do You Have Serious Difficulty Hearing? No Information not available 09/11/2023 What Type Of Diet Are You Following? REGULAR Information n ot available 09/11/2023 What Is The Highest Grade Or Level Of School You Have Completed Or The Highest Degree You Have Received? [id number] Information not available 11/10/2023 Are There Any Guns Present In Your Home? No Information not available 09/11/2023 In The Past 7 Days, How Many Days Did You Exercise? 0 Information not available 11/10/2023 In The Past 7 Days, How Much Pain Have You [place]? None Information not available 11/10/2023 In General, Would You Say You Health Is: Very Good Information not available 11/10/2023 How Would You Describe The Condition Of Your Mouth And Teeth- Including False Teeth Or Dentures? Good Information n ot available 11/10/2023 Each Night, How Many Hours Of Sleep Do You Get? 4 Information no t available 11/10/2023 Has Anyone Ever Told You That You Snore? No Information not available 11/10/2023 In The Past 7 Days, How Often Have You [place] Sleepy In The Daytime? Never Information not available 11/10/2023 # Alcohol Drinks Per Week 0 Information not available 11/10/2023 What Was The Date Of Your Most Recent Tobacco Screening? 11/02/2024 [email or web address] Information not available 11/02/2024 What Is Your Relationship Status? Single Information not available 09/11/2023 Do You Use Your Seat Belt Or Car Seat Routinely? Yes Information not available 09/11/2023 Do You Have Smoke And Carbon Monoxide Detectors In Your Home? Yes Information not available 09/11/2023 Do You Use Sunscreen Routinely? No Information not available 09/11/2023 Has Tobacco Cessation Counseling Been Provided? No Information not available 09/11/2023 Sex: Female Functional Status Question Answer Note LastModified by [employer] ion Details LastModified Time Do you use any illicit or recreational drugs? No Information not available 09/11/2023 Do you or have you ever used any other forms of tobacco or nicotine? No Information not available 09/11/2023 What is your level of alcohol consumption? None Information not available 09/11/2023 Are you currently employed? No volunteers Information not available 11/10/2023 Are you able to care for yourself? Yes Information not available 09/11/2023 What is your exercise level? Occasional Information not available 09/11/2023 Mental Status Question Answer Note LastModified by Organization D etails LastModified Time Do you feel stressed (tense, restless, nervous, or anxious, or unable to sleep at night)? [id number] Information not available 11/10/2023 Family History Relationship Description Onset Age of [...] Atrial Fibrillation N High Blood Pressure Y Thyroid Problems N Kidney or Bladder Problems Y Depression N COPD N Blood Clots N GI Problems N Have you had a mammogram in the last yea r? Y Skin Problems N Anemia N Heart Attack ([place]) N Diabetes N Anxiety Disorder N Muscle, Joint, or Bone Problems N Seizures/Epilepsy N Have you had a colonoscopy in the last 1 0 years? Y Acid Reflux (GERD) N Cancer N Stroke N Allergies Y Asthma N High Cholesterol Y Hepatitis N Liver Disease N Headaches N Osteoporosis N Heart Failure N Gynecological History Statement/Question Response If Post [...] 10:45:19 Influenza, high-dose, trivalent, PF 8 completed GAYLE Rodney, [place] - [facility] 09/11/2023 10:45:19 Influenza, split virus, trivalent, preservative 9 completed Katelin Delgado MA null, MD - [facility] 09/11/2023 10:45:19 Influenza, high-dose, trivalent, PF 4 completed Sophie Anderson MD Attn: Accounting,[address] [place], [address], [facility] - [facility] 06/11/2024 13:42:43 Past Encounters Encounter ID Performer Location Encounter Start Date Encounter Closed Date Diagnosis/Indication Diagnosis SNOMED-CT Code Diagnosis ICD10 Code Diagnosis Note [id number] Sophie Anderson MD [facility] (Adult Med) [address] [place] [id number] 09/11/2023 10:16:24 09/11/2023 11:51:58 Essential hypertension 32206191 I10 Acute sinusitis 76549972 J01.90 Gastro-eso phageal reflux disease with esophagitis 929292835 K21.00 Hyperlipidemia 87765289 E78.5 Vitamin D below reference range 865176278 E55.9 [id number] Sophie Anderson MD [facility] (Adult Med) [address] [place] [phone] 11/06/2023 09:52:03 11/06/2023 11:04:24 Essential hypertension 06446644 I10 [id number] Sophie Anderson MD [facility] (Adult Med) [address] [place] [phone] 11/10/2023 09:33:47 11/10/2023 10:26:12 Adult health examination 755063255 Z00.00 Health Risk Assessment collected and reviewed [id number] Sophie Anderson MD [facility] [address] [place] [address] 12/31/2023 16:14:13 12/31/2023 17:32:39 Obesity 514346201 E66.8 Edema of l ower extremity 654282430 R60.0 Essential hypertension 33612180 I10 Congestive heart failure 87498990 I50.9 [id number] Sophie Anderson MD [facility] (Adult Med) [address] [place] [phone] 03/11/2024 09:48:15 03/11/2024 10:25:01 Obese 507993003 E66.9 Essential hypertension 22475754 I10 Gastro-eso phageal reflux disease with esophagitis 914921739 K21.00 Hyperlipidemia 09918209 E78.5 [id number] Sophie Anderson MD [facility] (Adult Med) [address] [place] [phone] 0 06/08/2024 09:29:37 06/08/2024 10:13:19 Obesity 726068220 E66.9 Essential hypertension 28591711 I10 Administra tion of influenza vaccine 70900225 Z23 Gastro-eso phageal reflux disease with esophagitis 318546400 K21.00 Hyperlipidemia 60014773 E78.5 [id number] Sophie Anderson MD [facility] (Adult Med) [address] [place] [phone] 0 10/25/2024 13:56:37 10/25/2024 15:10:01 Body mass index 25-29 - overweight 991213422 Z68.29 Overweight 782905300 E66 .3 Sinusitis 79726686 J32.9 [id number] Sophie Anderson MD [facility] (Adult Med) [address] [place] [id number] 0 11/02/2024 09:59:10 11/02/2024 11:01:27 Overweight in adulthood with body mass index of 25 or more but less than 30 143419823 Z68.29 Overweight 889466928 E66 .3 Gastro-eso phageal reflux disease with esophagitis 879923630 K21.00 Serum crea tinine above reference range 097932280 R79.89 Essential hypertension 67943195 I10 Hyperlipidemia 36726369 E78.5 Health Concerns Section Related Observation LastModified by Organization Detai ls LastModified Time None Recorded Concern Status LastModified by Organization Details LastModified Time None Recorded Advance Directives Directive Y: Payers Encounter Date Sequence Insurance Name Policy Number Policy Ying Covered Member ID Ying Member ID Guarantor Name 12/31/2023 1 [place] Lorna Dowdy [id number] Lorna Dowdy 12/31/2023 2 [id number] Lorna Dowdy [id number] Lorna Dowdy 03/11/2024 1 [place] Lorna Dowdy [id number] Lorna Dowdy 03/11/2024 2 [id number] Lorna Dowdy [id number] Lorna Dowdy 06/08/2024 1 [place] Lorna Dowdy [id number] Lorna Dowdy 06/08/2024 2 [id number] Lorna Dowdy [id number] Lorna Dowdy 10/25/2024 1 [place] Lorna Dowdy [id number] Lorna Dowdy 10/25/2024 2 [id number] Lorna Dowdy [id number] Lorna Dowdy 11/02/2024 1 [place] Lorna Dowdy [id number] Lorna Dowdy 11/02/2024 2 [id number] Lorna Dowdy [id number] Lorna Dowdy Notes Date Note Type Note Provider Name and Address Organization Details Recorded Time 12/31/2023 text/html hypertension no headache or dizziness but has had a little bit of edema but no PND or orthopnea. Little bit overweight trouble shedding lb. Edema without PND orthopnea chest pain or palpitations Sophie Anderson MD Attn: Accounting[address] [place], [address], [place] - [facility] 02/09/2024 22:15:03 03/11/2024 text/html hypertension blo od pressure running little bit high. Asymptomatic. GERD no nausea no vomiting. Dyslipidemia does try to watch her diet. Sophie Anderson MD Attn: Accounting, [address] [facility], [place], [address], [place] - [facility] 03/12/2024 13:13:08 06/08/2024 text/html hypertension fee ls good blood pressure 138/70. Obesity she struggles losing weight GERD no nausea no vomiting no heartburn. Hyperlipidemia she does try to follow a low-fat diet she is taking her rosuvastatin. Sophie Anderson MD Attn: Accounting, [address] [facility], [place], [address], [place] - [facility] 06/11/2024 13:45:13 10/25/2024 text/html Acute appointmen t feeling dizzy last time she had this she had a sinus infection Sophie Anderson MD Attn: Accounting, [address] [facility], [place], [address], [place] - [facility] 10/25/2024 21:59:49 11/02/2024 text/html Sinuses cleared up blood pressure is doing fine she is following up with regards to her creatinine trying to watch her intake of unhealthy foods and saturated fat her GERD has been stable sinuses are flared up a little bit but controlled Sophie Anderson MD Attn: Accounting, [address] [facility], [place], [address], [place] - [facility] 11/06/2024 21:25:39 OBGyn Episode No OBEpisode recorded.
--- OUTSIDE RECORDS SUMMARY | 2024-12-06 07:29 | XMS_ITS | Data Portability ---
Author Organization [place] [facility] [employer], Main Office Address [address] [place] [address] Assessment Encounter Date Assessment Date Assessment LastModified by Organization Details LastModified Time 09/19/2022 09/19/2022 Blood pressure continue current therapy low vitamin-D supplement dyslipidemia check labs reinforce diet elevated LFTs will recheck follow-up 4 months Not available 09/19/2022 10:35:27 01/23/2023 01/23/2023 Blood work has been ordered colonoscopy ordered high-fiber diet regular exercise follow-up 6 months [email or web address] Not available 01/24/2023 15:04:27 06/16/2023 06/16/2023 Hypertension carvedilol lisinopril. Dyslipidemia rosuvastatin. GERD famotidine. Follow-up 6 months blood work ordered flu shot [email or web address] Not available 06/19/2023 22:03:17 Plan of Treatment Reminders Order Date Submit Date Provider Last Modified By Organization Details Last Modified Time Details Appointments None recorded. Lab CMP, serum or plasma 2022 023 [facility], [address], [place], [address], 4 14:40:58 lipid panel, serum 2022 023 [email or web address] [employer] [facility], [address], [place], [address], 4 19:05:58 CMP, serum or plasma 2022 023 [facility], [address], [place], [address], 3 11:54:15 lipid panel, serum 2022 023 [facility], [address], [place], [address], 3 11:54:14 CMP, serum or plasma 2022 023 [facility], [address], [place], [address], 3 11:46:57 lipid panel, serum 2022 023 [facility], [address], [place], [address], 3 11:46:57 Referral None recorded. Procedures colonoscopy procedure (PROC) 2022 023 ROBBIE Kendrick MD, [address] [place], [address], 3 12:27:21 Surgeries None recorded. Imaging None [...] Recorded Time Vitamin D below reference range 890264617 Active 2020 Not Available [facility] 4 19:17:52 Intolerant of heat and cold 515417444 Active 2021 Not Available [facility] 4 19:17:52 Gastroesophag eal reflux disease without esophagitis 377198576 Active 2020 Not Available [facility] 4 19:17:52 Dyspnea 759261415 Active 2021 Not Available [facility] 4 19:17:52 Sialolithiasi s 43786551 Active 2022 Not Available [facility] 4 19:17:52 Vitamin D deficiency 55584163 Active 2021 Not Available [facility] 4 19:17:52 Hyperlipidemi a 22258438 Active 2020 Not Available [facility] 4 19:17:52 Essential hypertension 14099941 Active 2020 Not Available [facility] 4 19:17:52 Allergic rhinitis 40868271 Active 2021 Not Available [facility] 4 19:17:52 Liver enzymes level above reference range 693326417 Active 2021 Not Available [facility] 4 19:17:53 Problem Notes None recorded. Procedures Surgical History Date Name Laterality Status Provider Name and Address Organization Details Recorded Time 12/23/19 17 Colonoscopy completed Not Available [facility] 09/11/19 06:55:46 06/13/20 10 Colonoscopy completed Not Available [facility] 09/11/19 06:55:46 Colonoscopy completed Not Available [facility] 09/10/2022 06:55:46 dilation of esophagus completed Not Available [facility] 09/10/2022 06:55:46 Polyp Removal completed Not Available [facility] 09/10/2022 06:55:46 Imaging Results None recorded. Procedure Notes None recorded. Medical Equipment None Reported. Allergies Allergen ID Allergen Name Allergen Category Reaction Reaction Severity Criticality Documentation Date Start Date Code Code System Note Provider Name and Address Organization Details Recorded Time 68022 Product containin g penicilli n (product) medicatio n Not available Not available Not available 09/10/2022 42688 8001 SNOMED Not Available [facility] 3 07:08:06 89301 erythromy ana medicatio n Not available Not available Not available 09/10/2022 4053 RxNorm Not Available [facility] 3 07:08:06 57485 Cipro medicatio n Not available Not available Not available 09/10/2022 95494 3 RxNorm Not Available [facility] 3 07:08:06 Medications Name Sig Start Date [...] Not Available Vitals Date Recorded Body height Body mass index (BMI) Body weight Body temperature Heart rate Systolic And Diastolic Provider Name and Address Organization Details Last Updated DateTime 3 163.83 cm 29.1 kg/m2 49133.8 9 g 97.7 [degF] 66 /min 136/84 mm[Hg] JOYA Root [facility] [employer] [facility] 3 09:39:43 Date Recorded Body height Body mass index (BMI) Body weight Body temperature Heart rate Systolic And Diastolic Provider Name and Address Organization Details Last Updated DateTime 3 163.83 cm 30.4 kg/m2 15444.6 3 g 97.4 [degF] 73 /min 138/88 mm[Hg] JOYA Root [facility] [employer] [facility] 3 09:35:32 Date Recorded Body height Heart rate Body temperature Body weight Systolic And Diastolic Provider Name and Address Organization Details Last Updated DateTime 03/31/2022 163.83 cm 75 /min 98.1 [degF] 91314.8 1 g 126/78 mm[Hg] Not Available [facility] 3 06:56:30 Date Recorded Body height Heart rate Body temperature Body weight Systolic And Diastolic Provider Name and Address Organization Details Last Updated DateTime 04/23/2022 163.83 cm 79 /min 98.4 [degF] 39158.4 4 g 116/78 mm[Hg] Not Available [facility] 3 06:56:30 Date Recorded Body height Body mass index (BMI) Body weight Body temperature Heart rate Systolic And Diastolic Provider Name and Address Organization Details Last Updated DateTime 3 163.83 cm 31.3 kg/m2 73454.5 9 g 97.2 [degF] 85 /min 132/86 mm[Hg] JOYA Root [place] [facility] [employer] [facility] 3 09:48:53 Social History Question Answer Notes LastModified by Organization Details LastModified Time Tobacco Smoking Status Never Smoker Not Available [facility] 09/10/2022 06:55:12 Do You Have An Advance Directive? No Pt Declined Info MIGRATION.030 [id number] Information not available 09/10/2022 Are You Blind Or Do You Have Difficulty Seeing? No MIGRATION.030 641630 Information not available 09/10/2022 What Is Your Level Of Caffeine Consumption? Moderate MIGRATION.030 037708 Information not available 09/10/2022 How Much Tobacco Do You Chew? None MIGRATION.030 333051 Information not available 09/10/2022 In The 14 Days Before Symptom Onset, Have You Had Close Contact With A Laboratory-confi rmed COVID-19 While That Case Was Ill? No MIGRATION.030 049355 Information not available 09/10/2022 In The 14 Days Before Symptom Onset, Have You Had Close Contact With A Person Who Is Under Investigation For COVID-19 While That Person Was Ill? No MIGRATION.0301 367734 Information not available 09/10/2022 Are You Deaf Or Do You Have Serious Difficulty Hearing? No MIGRATION.0301 105423 Information not available 09/10/2022 What Type Of Diet Are You Following? REGULAR MIGRATION.0301 302838 Information not available 09/10/2022 Which Illicit Or Recreational Drugs Have You Used? None MIGRATION.0301 181302 Information not available 09/10/2022 What Is The Highest Grade Or Level Of School You Have Completed Or The Highest Degree You Have Received? XY29761-0 MIGRATION.0301 296629 Information not available 09/10/2022 Have There Been Any Changes To Your Family Or Social Situation? No MIGRATION.0301 981197 Information not available 09/10/2022 What Is The Fluoride Status Of Your Home? Unknown MIGRATION.0301 563222 Information not available 09/10/2022 Are There Any Guns Present In Your Home? No MIGRATION.0301 833707 Information not available 09/10/2022 Do You Use Insect Repellent Routinely? No MIGRATION.0301 606928 Information not available 09/10/2022 Where Do You Live? [place]House MIGRATION.0301 076600 Information not available 09/10/2022 Do You Have A Medical Power Of Triage Clinician? No MIGRATION.0301 065404 Information not available 09/10/2022 What Was The Date Of Your Most Recent Tobacco Screening? 06/16/2023 [email or web address] Information not available 06/16/2023 Do You Have Any Pets? No MIGRATION.0301 806127 Information not available 09/10/2022 What Is Your Relationship Status? Single MIGRATION.0301 081782 Information not available 09/10/2022 Do You Use Your Seat Belt Or Car Seat Routinely? Yes MIGRATION.0301 729779 Information not available 09/10/2022 Do You Have Smoke And Carbon Monoxide Detectors In Your Home? Yes MIGRATION.0301 884940 Information not available 09/10/2022 Are You Passively Exposed To Smoke? No MIGRATION.0301 489304 Information not available 09/10/2022 Are There Any Smokers In Your House? No MIGRATION.0301 206632 Information not available 09/10/2022 How Much Tobacco Do You Smoke? No MIGRATION.0301 422965 Information not available 09/10/2022 What Types Of Sporting Activities Do You Participate In? None MIGRATION.0301 759490 Information not available 09/10/2022 Do You Use Sunscreen Routinely? Yes MIGRATION.0301 755485 Information not available 09/10/2022 Has Tobacco Cessation Counseling Been Provided? No Not Needed-nev er Smoked MIGRATION.0301 902364 Information not available 09/10/2022 How Many Years Have You Smoked Tobacco? 0 MIGRATION.0301 339597 Information not available 09/10/2022 Have You Recently Traveled Abroad? No MIGRATION.0301 657951 Information not available 09/10/2022 Do You Have Difficulty Walking Or Climbing Stairs? No MIGRATION.0301 996857 Information not available 09/10/2022 Do You Have Any Dietary Restrictions? No MIGRATION.0301 083430 Information not available 09/10/2022 Sex: Female Functional Status Question Answer Note LastModified by [email or web address] Details LastModified Time Do you use any illicit or recreational drugs? No MIGRATION.426757 8962 Information not available 09/10/2022 Do you or have you ever used any other forms of tobacco or nicotine? No MIGRATION.639946 0473 Information not available 09/10/2022 What is your level of alcohol consumption? None MIGRATION.133606 8399 Information not available 09/10/2022 Do you or have you ever used smokeless tobacco? Never used smokeless tobacco MIGRATION.102188 2822 Information not available 09/10/2022 Do you have transportation difficulties? No MIGRATION.214451 5507 Information not available 09/10/2022 Are you able to walk? YESWOREST MIGRATION.564416 8821 Information not available 09/10/2022 Do you have difficulty doing errands alone? No MIGRATION.230041 0961 Information not available 09/10/2022 Are you able to care for yourself? 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 No MIGRATION.023521 6207 Information not available 09/10/2022 Do you or have you ever used e-cigarettes or vape? Never used electronic cigarettes MIGRATION.772592 9098 Information not available 09/10/2022 What is your exercise level? Occasional MIGRATION.037742 4050 Information not available 09/10/2022 Mental Status Question Answer Note LastModified by [employer] ion Details LastModified Time Do you feel stressed (tense, restless, nervous, or anxious, or unable to sleep at night)? [id number] MIGRATION.07134395 26 Information not available 09/10/2022 Do you have difficulty concentrating, remembering or making decisions? No MIGRATION.64776920 26 Information not available 09/10/2022 Family History Relationship Description Onset Age of this Age Resolved Age Notes LastModified by Organization Details LastModified Time Mother Carcinoma of colon 88 MIGRATION.468 5532962 Not available 09/10/2022 06:55:47 Father Essential hypertension 74 MIGRATION.064 0055988 Not available 09/10/2022 06:55:48 Father Pulmonary emphysema MIGRATION.603 3110278 Not available 09/10/2022 06:55:48 Sister Carcinoma of colon 50 MIGRATION.364 9176407 Not available 09/10/2022 06:55:48 Sister Aortic aneurysm 80 MIGRATION.523 4407453 Not available 09/10/2022 06:55:48 Medical History Condition [...] HAVE YOU BEEN HOSPITALIZED OR SEEN IN [facility] IN THE PAST YEAR ? N ATHEROSCLEROSIS [...] quadrivalent, PF 06/16/2023 completed Kingsley Anderson MD [address] [place] [address], [facility] [address], [place], [address], [facility] [employer] 06/19/2023 22:02:46 COVID-19, mRNA, LNP-S, PF, 30 mcg/0.3 mL dose 05/04/2021 completed Not Available [facility] 4 19:17:53 COVID-19, mRNA, LNP-S, PF, 30 mcg/0.3 mL dose 10/05/2020 completed Not Available [facility] 4 19:17:53 COVID-19, mRNA, LNP-S, PF, 30 mcg/0.3 mL dose 09/07/2020 completed Not Available [facility] 4 19:17:53 Past Encounters Encounter ID Performer Location Encounter Start Date Encounter Closed Date Diagnosis/Indication Diagnosis SNOMED-CT Code Diagnosis ICD10 Code Diagnosis Note [id number] Kingsley Anderson MD [facility] Internal Med [address] [facility], [facility] [address] [place] [address] 01/09/2021 00:00:00 01/14/2021 17:39:43 [id number] Kingsley Anderson MD [facility] Internal Med [facility] [address] [facility] [address] [place] [address] 06/19/2021 00:00:00 06/30/2021 12:54:12 [id number] Kingsley Anderson MD [facility] Internal Med [facility] [address] [facility] [address] [address] 12/18/2021 00:00:00 12/18/2021 21:19:52 [id number] Kingsley Anderson MD [facility] Internal Med [facility] [address] [place] [address] [address] 03/31/2022 00:00:00 03/31/2022 23:31:48 [id number] Kingsley Anderson MD [facility] Internal Med [facility] [address] [place] [address] [address] 04/23/2022 00:00:00 04/27/2022 23:32:54 [id number] Kingsley Anderson MD [facility] Internal Med [facility] [address] [place] [address] [address] 09/19/2022 09:30:22 09/19/2022 10:19:44 Essential hypertension 40896968 I10 Vitamin D below reference range 379004277 E55.9 Hyperlipidemia 20952814 E78.5 [id number] Kingsley Anderson MD [facility] Internal Med [facility] [address] [place] [address] [address] 01/23/2023 09:27:08 01/23/2023 09:50:23 Essential hypertension 43944270 I10 History of malignant neoplasm of colon 635353893 Z85.038 Gastroesop hageal reflux disease without esophagitis 873339327 K21.9 Hyperlipidemia 45357734 E78.5 [id number] Kingsley Anderson MD [facility] Internal Med [facility] [address] [place] [address] [address] 06/16/2023 09:40:41 06/16/2023 10:43:58 Administration of influenza vaccine 76877296 Z23 Essential hypertension 43377545 I10 Gastroesop hageal reflux disease without esophagitis 896762341 K21.9 Hyperlipidemia 67377936 E78.5 Health Concerns Section Related Observation LastModified by Organization Detai ls LastModified Time None Recorded Concern Status LastModified by Organization Details LastModified Time None Recorded Advance Directives Directive N: pt declined info Payers Encounter Date Sequence Insurance Name Policy Number Policy Ying Covered Member ID Ying Member ID Guarantor Name 09/19/2022 1 [place] Lorna Dowdy [id number] Lorna Dowdy 09/19/2022 2 [id number] Lorna Dowdy [id number] Lorna Dowdy 01/23/2023 1 [place] Loran Dowdy [id number] Lorna Dowdy 01/23/2023 2 [id number] Lorna Dowdy [id number] Lorna Dowdy 06/16/2023 1 [place] Lorna Dowdy [id number] Lorna Dowdy 06/16/2023 2 [id number] Lorna Dowdy [id number] Lorna Dowdy Notes Date Note Type Note Provider Name and Address Organization Details Recorded Time 09/19/2022 text/html Hypertension no headache no dizziness. Low vitamin-D level needs to be checked dyslipidemia tries to follow low-fat diet. Elevated liver enzymes will recheck she is asymptomatic Kingsley Anderson MD [address], [place], [address], [employer] 09/19/2022 10:35:47 01/23/2023 text/html GERD doing fine hypertension no headache no dizziness dyslipidemia does try to follow low-fat diet history of colon polyps needs a scope Kingsley Anderson MD [address], [place], [address], [employer] 01/24/2023 15:04:46 06/16/2023 text/html GERD doing fine hypertension no headache no dizziness dyslipidemia does try to follow low-fat diet history of colon polyps needs a scope Kingsley Anderson MD [address], [place], [address], [employer] [facility] [employer] 06/19/2023 22:04:09 OBGyn Episode No OBEpisode recorded.
[2024-12-06 13:42] LABS: Total Volume 24 Hour Urine 600 ml; Urea Nitrogen 24 Hour Urine 3.1 G/DAY (12-20)
[2024-12-07 15:54] LABS: Creat 24 Hr 0.81 g/24 h (0.50-2.15); Pro/Creat Ratio 87 mg/g creat (<150); Pro/Creat Ratio mg/mg 0.087 (<0.150); Protein,total, 24 Hr Ur 70 mg/24 h (<150)
[2024-12-11 01:29] LABS: Magnesium, 24-Hour Urine 58 mg/24 h (18-130)
[2024-12-14 13:04] LABS: Albumin 100 %
== END 2024-12-06 07:26 | disposition home or self-care (01) ==
LOC: ANHLAB 07:27
PROVIDERS: PCP Internal Medicine; Visit Provider Internal Medicine Nephrology
DX: E87.6 Hypokalemia (principal); I10 Essential (primary) hypertension; E83.42 Hypomagnesemia
CPT/HCPCS: 81050; 83735; 84540; 86335

== ENCOUNTER 2025-02-14 08:25 | Outpatient (CLI) | payer MEDICARE, SELFPAY ==
--- OUTSIDE RECORDS SUMMARY | 2025-02-14 08:29 | XMS_ITS | Clinical Summary ---
Author Organization [employer] [facility] Address [address] [place] [address] Care Team Providers Care Systems Qa Analyst Name Role Phone Kingsley Anderson MD Primary Care Provider [phone] Allergies Active Allergy Reactions Criticality Noted Date [...] Comments Blood Pressure 139/86 06/15/2019 5:57 PM INJECTOR ASSEMBLER Pulse 77 06/15/2019 5:57 PM INJECTOR ASSEMBLER Temperature 36.7 C (98.1 F) 06/15/2019 5:57 PM INJECTOR ASSEMBLER Respiratory Rate 18 06/15/2019 5:57 PM INJECTOR ASSEMBLER Oxygen Saturation 94% 06/15/2019 5:57 PM INJECTOR ASSEMBLER Inhaled Oxygen Concentration - - Weight 85.3 kg (188 lb) 06/15/2019 5:57 PM INJECTOR ASSEMBLER Height 157.5 cm (5' 2) 06/15/2019 5:57 PM INJECTOR ASSEMBLER Body Mass Index 34.39 06/15/2019 5:57 PM INJECTOR ASSEMBLER Plan of Treatment Health Maintenance Due Date Last Done Comments DTAP/TDAP/TD VACCINES (1 - Tdap) 1968 COLORECTAL SCREENING 1994 Colorectal Cancer Screening 1994 FIT-DNA Q 3 years 1994 FIT/FOBT Q 1 year 1994 Flex Sig/CT Colonography Q 5 years 1994 PNEUMOCOCCAL VACCINE 50+ YEA RS (1 of 1 - PCV) 1999 ZOSTER VACCINE (1 of 2) 1999 OSTEOPOROSIS SCREENING 2014 RSV VACCINE (60+ or ) (1 - 1-dose 75+ series) 2024 INFLUENZA VACCINE (#1) 2025 04/16/2019, 2017 Insurance MEDICARE PART A AND B BCBS SUPP Care Teams Systems Qa Analyst Relationship Specialty Start Date End Date Kingsley Anderson MD [address] [place] [phone] PCP - General Internal Medicine 06/15/19
[2025-02-14 08:51] LABS: Hematocrit 41.3 % (37.0-47.0); Hemoglobin 13.6 g/dL (12.0-15.0); Mean Corpuscular HGB Conc 32.9 g/dl (32-36); Mean Corpuscular Hemoglobin 29.8 pg (26-34); Mean Corpuscular Volume 90.4 fl (80-100); Platelet Count Result 268 k/mm3 (150-375); Red Blood Count 4.57 M/mm3 (4.2-5.4); White Blood Count 8.1 K/mm3 (4.5-10.0)
[2025-02-14 09:30] LABS: Total Protein Urine Random 14 mg/dL; Ur Ttl Prot Creatinine Ratio 0.07 mg/mg (0-0.20)
[2025-02-14 09:36] LABS: Albumin Level 4.2 g/dL (3.5-5.1); Anion Gap 7 mmol/L (4-12); Blood Urea Nitrogen 12 mg/dL (7-17); Calcium 9.6 mg/dL (8.4-10.2); Carbon Dioxide 26 mmol/L (22-30); Chloride 106 mmol/L (98-107); Estimated Glomerular Filt Rate > 60; Glucose 101 mg/dL (65-110); Potassium 4.2 mmol/L (3.4-5.0); Sodium 139 mmol/L (137-145)
[2025-02-14 09:46] LABS: Parathyroid Intact 51.1 pg/mL (14.5-75.2)
== END 2025-02-14 08:26 | disposition home or self-care (01) ==
LOC: ANHLAB 08:26
PROVIDERS: PCP Internal Medicine; Visit Provider Internal Medicine Nephrology
DX: R94.4 Abnormal results of kidney function studies (principal); I10 Essential (primary) hypertension
CPT/HCPCS: 36415; 80069; 82570; 83970; 84156; 85027

== ENCOUNTER 2025-03-16 09:31 | Outpatient (CLI) | payer MEDICARE, SELFPAY ==
--- OUTSIDE RECORDS SUMMARY | 2025-03-16 09:53 | XMS_ITS | Clinical Summary ---
Author Organization [employer] [facility] Address [address] [place] [address] Care Team Providers Care Telecom Engineer Name Role Phone Kingsley Anderson MD Primary Care Provider [phone] Allergies Active Allergy Reactions Criticality Noted Date [...] Comments Blood Pressure 139/86 06/15/2019 5:57 PM PRODUCTION PLANNING SUPERVISOR Pulse 77 06/15/2019 5:57 PM PRODUCTION PLANNING SUPERVISOR Temperature 36.7 C (98.1 F) 06/15/2019 5:57 PM PRODUCTION PLANNING SUPERVISOR Respiratory Rate 18 06/15/2019 5:57 PM PRODUCTION PLANNING SUPERVISOR Oxygen Saturation 94% 06/15/2019 5:57 PM PRODUCTION PLANNING SUPERVISOR Inhaled Oxygen Concentration - - Weight 85.3 kg (188 lb) 06/15/2019 5:57 PM PRODUCTION PLANNING SUPERVISOR Height 157.5 cm (5' 2) 06/15/2019 5:57 PM PRODUCTION PLANNING SUPERVISOR Body Mass Index 34.39 06/15/2019 5:57 PM PRODUCTION PLANNING SUPERVISOR Plan of Treatment Health Maintenance Due Date [...] A AND B BCBS SUPP Care Teams Telecom Engineer Relationship Specialty Start Date End Date Kingsley Anderson MD [address] [place] [address] PCP - General Internal Medicine 06/15/19
[2025-03-16 10:50] LABS: Anion Gap 8 mmol/L (4-12); Blood Urea Nitrogen 26 mg/dL (7-17); Calcium 9.9 mg/dL (8.4-10.2); Carbon Dioxide 25 mmol/L (22-30); Chloride 101 mmol/L (98-107); Estimated Glomerular Filt Rate 37; Glucose 99 mg/dL (65-110); Magnesium 2.4 mg/dL (1.6-2.3); Potassium 4.8 mmol/L (3.4-5.0); Sodium 134 mmol/L (137-145)
== END 2025-03-16 09:32 | disposition home or self-care (01) ==
PROVIDERS: PCP Internal Medicine; Visit Provider Internal Medicine Nephrology
DX: R78.6 Finding of steroid agent in blood (principal); I10 Essential (primary) hypertension; E83.42 Hypomagnesemia
CPT/HCPCS: 36415; 80048; 83735

== ENCOUNTER 2025-06-16 08:00 | Outpatient (CLI) | payer MEDICARE, SELFPAY ==
[2025-06-16 08:43] LABS: Hematocrit 40.1 % (37.0-47.0); Hemoglobin 13.4 g/dL (12.0-15.0); Mean Corpuscular HGB Conc 33.4 g/dl (32-36); Mean Corpuscular Hemoglobin 30.6 pg (26-34); Mean Corpuscular Volume 91.6 fl (80-100); Platelet Count Result 265 k/mm3 (150-375); Red Blood Count 4.38 M/mm3 (4.2-5.4); White Blood Count 8.0 K/mm3 (4.5-10.0)
[2025-06-16 09:04] LABS: Total Protein Urine Random 15 mg/dL; Ur Ttl Prot Creatinine Ratio 0.21 mg/mg (0-0.20)
[2025-06-16 09:06] LABS: Albumin Level 4.0 g/dL (3.5-5.1); Anion Gap 1 mmol/L (4-12); Blood Urea Nitrogen 9 mg/dL (7-17); Calcium 8.9 mg/dL (8.4-10.2); Carbon Dioxide 27 mmol/L (22-30); Chloride 109 mmol/L (98-107); Estimated Glomerular Filt Rate > 60; Glucose 116 mg/dL (65-110); Magnesium 2.1 mg/dL (1.6-2.3); Potassium 4.0 mmol/L (3.4-5.0); Sodium 137 mmol/L (137-145)
== END 2025-06-16 08:01 | disposition home or self-care (01) ==
PROVIDERS: PCP Internal Medicine; Visit Provider Internal Medicine Nephrology
DX: I12.9 Hypertensive chronic kidney disease with stage 1 through stage 4 chronic kidney disease, or unspecified chronic kidney disease (principal); N18.9 Chronic kidney disease, unspecified; E87.6 Hypokalemia; E83.42 Hypomagnesemia
CPT/HCPCS: 36415; 80069; 82570; 83735; 84156; 85027